=== PATIENT | female | born 1930 | race African-American/Black ===

== ENCOUNTER 2019-01-20 12:24 | Inpatient (IN) | payer MEDICARE, OTHER ==
[~2019-01-20] VITALS: Ht 165.1 cm; Wt 74.4 kg
[2019-01-20 12:40] VITALS: BP 135/63
[2019-01-20] MEDS ORDERED: Cefepime HCl 2 GM in NS 110 ML IV SCH (13:00)
[2019-01-20] MEDS ORDERED: Vancomycin 1.5 GM in NS 275 ML IVPB ONE (13:00)
[2019-01-20 14:01] LABS: BASOPHILS % (AUTO) 1.5 % (0.0-2.0); EOSINOPHILS % (AUTO) 4.3 % (0.0-3.0); HEMATOCRIT 29.3 % (37.0-47.0); HEMOGLOBIN 8.9 G/DL (12.0-16.0); LYMPHOCYTES % (AUTO) 19.3 % (20.0-45.0); MEAN CORPUSCULAR VOLUME 96 FL (80-99); MONOCYTES % (AUTO) 5.1 % (1.0-10.0); NEUTROPHILS % (AUTO) 69.8 % (45.0-75.0); PLATELET COUNT 443 K/UL (150-450); RED BLOOD COUNT 3.06 M/UL (4.20-5.40); WHITE BLOOD COUNT 9.9 K/UL (4.8-10.8)
[2019-01-20 14:12] LABS: INR 1.1 (0.9-1.1)
--- NOTE | 2019-01-20 14:39 | Diagnostic Imaging Report ---
Indication: Left leg edema and pain Technique: Grayscale and duplex images of the left lower extremity veins Comparison: none Findings: Within the common femoral vein and femoral vein, there is some wall adherent thrombus resulting in incomplete compressibility. Collateral veins are seen surrounding the mid to distal femoral vein. There is fairly extensive edema of the subcutaneous fat. Popliteal and calf veins are patent, without evidence of acute thrombus. Doppler waveforms demonstrate slightly dampened phasicity, normal augmentation response Impression: Incompletely occlusive and most likely chronic thrombus within the left common femoral and femoral veins. Subcutaneous fat edema incidentally noted
--- NOTE | 2019-01-20 15:46 | Diagnostic Imaging Report ---
Indication: Chest pain Technique: One view of the chest Comparison: 04/23/2010 Findings: Body habitus limits evaluation. The heart is enlarged. There is questionably some airspace opacity in the right infrahilar region. There is equivocal mild interstitial prominent. There is mild central bronchial wall thickening. The pleural spaces are grossly clear. There are degenerative changes of both shoulders Impression: Equivocal mild interstitial prominence, could be on the basis of senescent change or could indicate mild interstitial congestion Equivocal right infrahilar airspace opacities. Cardiomegaly
[2019-01-20] MEDS ORDERED: Vancomycin 1.5gm vial IVPB ONE (15:50)
[2019-01-20 16:00] VITALS: BP 136/70
[2019-01-20 16:03] LABS: ANION GAP 3 mmol/L (5-15); BLOOD UREA NITROGEN 14 mg/dL (7-18); CALCIUM 8.3 MG/DL (8.5-10.1); CARBON DIOXIDE 27 MMOL/L (21-32); CHLORIDE 109 MMOL/L (98-107); CREATININE 0.9 MG/DL (0.55-1.30); POTASSIUM 4.6 MMOL/L (3.5-5.1); SODIUM 139 MMOL/L (136-145)
[2019-01-20 16:15] LABS: ALANINE AMINOTRANSFERASE 7 U/L (12-78); ALBUMIN 1.8 G/DL (3.4-5.0); ALBUMIN/GLOBULIN RATIO 0.4 (1.0-2.7); ALKALINE PHOSPHATASE 80 U/L (46-116); ASPARTATE AMINO TRANSFERASE 22 U/L (15-37); BILIRUBIN,TOTAL 0.5 MG/DL (0.2-1.0); CREATINE KINASE 141 U/L (26-308)
[2019-01-20 17:46] LABS: APPEARANCE,URINE SLIGHTLY CLOUDY; BILIRUBIN, URINE NEGATIVE (NEGATIVE); COLOR,URINE AMBER; GLUCOSE, URINE (UA) NEGATIVE (NEGATIVE); KETONES,URINE NEGATIVE (NEGATIVE); LEUKOCYTE ESTERASE ,URINE 3+ (NEGATIVE); NITRITE,URINE NEGATIVE (NEGATIVE); PH,URINE 5 (4.5-8.0); PROTEIN,URINE 1+ (NEGATIVE); UROBILINOGEN,URINE 1 MG/DL (0.0-1.0)
--- NOTE | 2019-01-20 19:16 | Emergency Room Report ---
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 Patient is not a good historian and does not recall how long the ulcer has been there however looks infected possible osteomyelitis. Patient denies any chest pain, shortness of breath, palpitation , headache and dizziness at this time. Vital signs are within normal limits. No motor or sensory deficits noted. No unilateral or generalized weakness noted. Patient is blind in right eye.Patient rating her pain at 2 out of 10 at this time without radiation denying tingling numbness (Desmond Arriaza) Allergies: Coded Allergies: PENICILLINS (Verified Allergy, Mild, 04/21/10) Uncoded Allergies: SEAFOOD (Allergy, Mild, 04/21/10) Patient History Past Medical History: see triage record Past Surgical History: unable to obtain Pertinent Family History: none Now: No Immunizations: UTD Reviewed Nursing Documentation: PMH: Agreed; PSxH: Agreed (Desmond Arriaza) Nursing Documentation-PMH Past Medical History: No History, Except For Hx Hypertension: Yes Hx Cerebrovascular Accident: Yes - left sided weakness (Desmond Arriaza) Review of Systems All Other Systems: negative except mentioned in HPI (Desmond Arriaza) Physical Exam Vital Signs Date Time Temp Pulse Resp B/P (MAP) Pulse Ox O2 Delivery O2 Flow Rate FiO2 01/20/19 12:21 98.8 88 17 134/64 (87) 98 Sp02 EP Interpretation: reviewed, normal General Appearance: alert, GCS 15, non-toxic, mild distress Head: normocephalic, atraumatic Eyes: bilateral eye normal inspection, bilateral eye PERRL ENT: hearing grossly normal, normal pharynx, no angioedema, normal voice Neck: full range of motion, supple, supple/symm/no masses Respiratory: chest non-tender, lungs clear, normal breath sounds, speaking full sentences Cardiovascular #1: regular rate, rhythm, no edema, no murmur Cardiovascular #2: 2+ carotid (R), 2+ carotid (L), 2+ radial (R), 2+ dorsalis pedis (R), 2+ dorsalis pedis (L) Gastrointestinal: normal inspection, normal bowel sounds, non tender, soft, no mass Genitourinary: no CVA tenderness Musculoskeletal: no calf tenderness, pelvis stable, swelling - Left foot with ulceration Neurologic: alert, oriented x3, responsive, motor strength/tone normal, sensory intact, speech normal Psychiatric: judgement/insight normal, memory normal, mood/affect normal, no suicidal/homicidal ideation Skin: other - Left foot ulcer Lymphatic: no adenopathy (Desmond Arriaza) Medical Decision Making PA Attestation Diagnosis and treatment plans were reviewed and discussed with my supervising physician Dr. Guevara (Desmond Arriaza) Medicare Attestation I saw and evaluated the patient and discussed the care with Desmond MAYA on 01/20/2019. I agree with the findings and plan as documented in the note. 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 Patient is not a good historian and does not recall how long the ulcer has been there however looks infected possible osteomyelitis. Patient denies any chest pain, shortness of breath, palpitation , headache and dizziness at this time. Vital signs are within normal limits. No motor or sensory deficits noted. No unilateral or generalized weakness noted. Patient is blind in right eye. Patient rating her pain at 2 out of 10 at this time without radiation denying tingling numbness Ddx considered but are not limited to : Osteomyelitis ,cellulitis, DVT, superficial infection, abscess Vital signs: are WNL, pt. is afebrile H&PE are most consistent with: Foot ulcer with possible osteomyelitis, pneumonia ORDERS: Sepsis work-up, venous duplex of left lower extremity, x-ray left foot ED INTERVENTIONS: Cefepime, NS bolus, vancomycin Patient was admitted with diagnosis of possible ostium mellitus of left foot, pneumonia to Dr. Archibald under supervision of : Melvin pt stable at time of admission (Desmond Arriaza) EKG Diagnostic Results Rate: normal Rhythm: NSR ST Segments: no acute changes Other Impression No acute ST changes (Desmond Arriaza) Chest X-Ray Diagnostic Results Chest X-Ray Diagnostic Results : Chest X-Ray Ordered: Yes # of Views/Limited/Complete: 1 View Indication: Other EP Interpretation: Yes PA Xray: Interpretation reviewed, by supervising MD, and agrees with findings. Interpretation: other - infiltrates RLL Impression: Other - PNA Electronically Signed by: Desmond Pittman PA-C) Other X-Ray Diagnostic Results Other X-Ray Diagnostic Results : X-Ray ordered: Left foot # of Views/Limited Vs Complete: 3 View Indication: Pain EP Interpretation: Yes PA Xray: Interpretation reviewed, by supervising MD, and agrees with findings. Interpretation: no dislocation, no fractures, other - Possible osteomyelitis to the foot ulceration Impression: Other - Possible osteomyelitis due to foot ulceration Electronically Signed by: Desmond Loza PA-C (Desmond Arriaza) CT/MRI/US Diagnostic Results CT/MRI/US Diagnostic Results : Imaging Test Ordered: Venous duplex of left lower extremity Impression Chronic DVT (Desmond Arriaza) Last Vital Signs Date Time Temp Pulse Resp B/P (MAP) Pulse Ox O2 Delivery O2 Flow Rate FiO2 01/20/19 12:40 98.9 17 135/63 98 01/20/19 12:21 88 (Desmond Arriaza) Disposition: ADMITTED INPATIENT Condition: Stable Scripts Unable to Obtain Active Prescriptions or Reported Meds Referrals: NOT CHOSEN IPA/,REFERRING (PCP) Desmond Arriaza Jan 20, 2019 19:16 Sandip Guevara MD Jan 20, 2019 21:07
[2019-01-20 19:20] VITALS: BP 131/69
[2019-01-20 21:45] VITALS: BP 148/66
[2019-01-21 00:30] VITALS: BP 125/58
[2019-01-21] MEDS: Albuterol/Ipratropium 3ml neb HHN SCH ×4 (01:51→20:03)
[2019-01-21 04:44] VITALS: BP 148/75
[2019-01-21] MEDS: Heparin 5000 units/ml inj SUBQ SCH ×3 (05:39→21:01)
[2019-01-21 06:27] LABS: BASOPHILS % (AUTO) 1.1 % (0.0-2.0); EOSINOPHILS % (AUTO) 5.4 % (0.0-3.0); HEMATOCRIT 25.7 % (37.0-47.0); LYMPHOCYTES % (AUTO) 18.6 % (20.0-45.0); MEAN CORPUSCULAR VOLUME 96 FL (80-99); NEUTROPHILS % (AUTO) 69.9 % (45.0-75.0); PLATELET COUNT 401 K/UL (150-450); RED BLOOD COUNT 2.66 M/UL (4.20-5.40); RED CELL DISTRIBUTION WIDTH 17.2 % (11.6-14.8); WHITE BLOOD COUNT 9.7 K/UL (4.8-10.8)
[2019-01-21 07:00] LABS: ALANINE AMINOTRANSFERASE 8 U/L (12-78); ALBUMIN 1.8 G/DL (3.4-5.0); ALBUMIN/GLOBULIN RATIO 0.4 (1.0-2.7); ALKALINE PHOSPHATASE 79 U/L (46-116); ANION GAP 4 mmol/L (5-15); ASPARTATE AMINO TRANSFERASE 22 U/L (15-37); BILIRUBIN,TOTAL 0.5 MG/DL (0.2-1.0); BLOOD UREA NITROGEN 12 mg/dL (7-18); CALCIUM 7.8 MG/DL (8.5-10.1); CARBON DIOXIDE 28 MMOL/L (21-32); CHLORIDE 110 MMOL/L (98-107); CHOLESTEROL 129 MG/DL (< 200); CREATININE 0.8 MG/DL (0.55-1.30); HDL CHOLESTEROL 31 MG/DL (40-60); SODIUM 142 MMOL/L (136-145); TRIGLYCERIDES 68 MG/DL (30-150)
[2019-01-21 07:24] LABS: % IRON SATURATION 15 % (15-50); IRON 25 ug/dL (50-175); TOTAL IRON BINDING CAPACITY 163 ug/dL (250-450)
[2019-01-21 08:00] VITALS: BP 131/52
[2019-01-21] MEDS: Aspirin Baby 81mg ORAL SCH (09:23)
[2019-01-21] MEDS: Lisinopril 20mg tab ORAL SCH (09:23)
--- NOTE | 2019-01-21 09:45 | History and Physical Report ---
DATE OF ADMISSION: 01/20/2019 CHIEF COMPLAINT: Multiple wounds and pain. HISTORY OF PRESENT ILLNESS: The patient is an 88-year-old female. She is a poor historian. According to the patient, she presented with complaints of stroke. She states her stroke happened years ago. She also notes worsening pain in the left foot. She has multiple pressure ulcers. She is unclear exactly how long she has had wounds. She denies any fevers or chills. On evaluation in the emergency room, she had a more significant wound on the left heel that was possibly infected as well as bilateral pressure ulcers on the buttocks. She currently lives at home. She states she has a caregiver. Attempts at reaching family in contact list in the chart were unsuccessful. PAST SURGICAL HISTORY: None. FAMILY HISTORY: None. SOCIAL HISTORY: Negative for tobacco, ethanol, or drugs. REVIEW OF SYSTEMS: GENERAL: No fevers or chills. HEENT: No headaches or visual changes. CARDIOPULMONARY: No chest pain or shortness of breath. GASTROINTESTINAL: No nausea or vomiting. GENITOURINARY: No urgency or frequency. MUSCULOSKELETAL: Positive foot pain. NEUROLOGIC: No evidence of seizures. PHYSICAL EXAMINATION: VITAL SIGNS: Temperature 98 degrees, pulse 76, respirations 19, and blood pressure 148/75. GENERAL: The patient is well developed, in no apparent distress. HEART: Regular rate and rhythm. LUNGS: Clear. ABDOMEN: Soft, nontender, and nondistended. EXTREMITIES: Without clubbing or cyanosis. The patient has a large wound on the left heel with some necrotic tissue. There is a blood blister to the lateral aspect of the foot. There is a small wound on the bottom of the right heel and bilateral stage III sacral wounds on the buttocks. LABORATORY DATA: UA showed 60 to 80 wbc's. White count 10, hemoglobin 9, hematocrit 29, and platelets of 443,000. Sodium 139, potassium 4.6, chloride 109, bicarb 27, BUN 14, and creatinine 0.9. ASSESSMENT: This is a pleasant 88-year-old female with a history of hypertension and prior stroke, admitted with multiple pressure wounds. She has urinary tract infection and possible osteomyelitis of the left heel. PLAN: IV antibiotics. Follow up cultures. Wound care evaluation. ID consultation. MRI of the left foot to rule out osteomyelitis. Check vascular studies. DVT and stress ulcer prophylaxes. The patient will definitely need to be placed in the half-way for wound care. Eloy Hughes M.D. DR: TEMITOPE JOB#: [id number] CC:
--- NOTE | 2019-01-21 10:00 | Consultation ---
DATE OF CONSULTATION: CARDIOLOGY CONSULTATION CONSULTING PHYSICIAN: James Archibald M.D. REASON FOR CONSULTATION: Congestive heart failure, peripheral artery disease, and venous thrombosis. HISTORY OF PRESENT ILLNESS: This is a very poor historian. She is 88 years old. She apparently lives in home and has a caregiver assisting. She has had increasing pain and immobility due to an ulcer of her left foot. She called her doctor today although she cannot recall her doctor's name and he instructed her to come to the hospital. She was brought by ambulance. She is unable to give much more medical information. PAST MEDICAL HISTORY: Includes CVA with left-sided weakness, hypertension, DVT, and blindness in the right eye. MEDICATIONS: According to the run sheet, her home medications include labetalol, Plavix, and aspirin. ALLERGIES: Include penicillin and seafood. SOCIAL HISTORY: She denies smoking, alcohol, or substance abuse. REVIEW OF SYSTEMS: Cannot be reliably obtained from the patient. PHYSICAL EXAMINATION: GENERAL: Thin and frail. Poorly kept. VITAL SIGNS: Blood pressure 134/64, heart rate 88, and respiratory rate 17. HEENT: Temporal wasting. Blind on the right. Arcus senilis. Oropharynx clear. Mucous membranes moist. NECK: Supple. Jugular venous pressure is slightly elevated. LUNGS: Diminished breath sounds. No wheezing or rales. CARDIAC: Regular rhythm and rate. Normal S1 and S2. 1/6 systolic murmur at apex. ABDOMEN: Soft and nontender. EXTREMITIES: With poor pulses. No edema. Left foot ulcer. There is some skin breakdown between the digits as well. Chest x-ray reveals right lower lobe infiltrate. X-ray of the foot is suggestive of osteomyelitis on the left. Venous duplex reveals chronic DVT on the left. EKG reveals sinus rhythm with nonspecific ST-T wave change. Laboratories notable for sodium 139, potassium 4.6, bicarbonate 27, BUN 14, creatinine 0.1, and glucose 124. Lactic acid normal. Troponin normal. Pro-natriuretic peptide 1857. Albumin 1.8. White count 9.9, hemoglobin 8.9, and MCV 96. IMPRESSION: 1. Probable left lower extremity osteomyelitis. 2. Peripheral artery disease with arterial insufficiency. 3. Chronic lower extremity DVT. 4. Cerebrovascular accident with left hemiparesis. 5. Hypertensive heart disease. 6. Acute on chronic right-sided congestive heart failure with possible systolic component as well. 7. Anemia with macrocytosis. 8. Severe protein-calorie malnutrition. 9. Community-acquired pneumonia, possible aspiration component. PLAN: 1. Antimicrobials. 2. Respiratory hygiene. 3. Panculture. 4. MRI of the foot. 5. Arterial duplex of the foot. 6. DVT prophylaxis, dosing of heparin. 7. Titrate antihypertensives. 8. Check hemoglobin A1c. 9. Check lipid panel. 10. Continue antiplatelet therapy. 11. Skin care. 12. Surgical evaluation of foot. 13. Protein supplement. 14. Presently, no indication for diuresis; however, we will reassess. 15. Anti-failure therapy has been advanced with an angiotensin-converting enzyme inhibitor for now. She will likely require resumption of her beta-juan f as well. Agnieszka Alfaro JOB#: [id number] CC:
[2019-01-21 12:00] VITALS: BP 115/62
--- NOTE | 2019-01-21 13:12 | Diagnostic Imaging Report ---
APPROVED REPORT CPT Code: 50439 Symptoms Non-healing Ulcer : Bilaterally RIGHT LEG: Common femoral artery waveform analysis is within normal limits at rest. Color flow duplex sonography reveals calcification throughout the superficial femoral artery. A mild (40-50%) stenosis is seen in the superficial femoral artery. There is no evidence of occlusion within this segment. The popliteal artery is patent. The tibioperoneal trunk was not well visualized. The distal posterior and dorsalis pedis arteries are also calcified. The Doppler tibial artery waveform analysis is compatible with moderate ischemia at rest. Doppler tibial artery waveform analysis is compatible with moderate ischemia at rest. LEFT LEG: Common femoral artery waveform analysis is within normal limits at rest. Color flow duplex sonography reveals calcification throughout the superficial femoral artery. A mild (40-50%) stenosis is seen in the superficial femoral artery. There is no evidence of occlusion within this segment. The popliteal artery is patent. The tibioperoneal trunk was not well visualized. The distal posterior and dorsalis pedis arteries are also calcified. The Doppler tibial artery waveform analysis is compatible with moderate ischemia at rest. Doppler tibial artery waveform analysis is compatible with moderate to severe ischemia at rest.
[2019-01-21] MEDS: Cefepime HCl 1 GM in D5W 55 ML IVPB SCH (15:09)
--- NOTE | 2019-01-21 15:36 | Diagnostic Imaging Report ---
Indication: Posterior heel ulceration. Cellulitis of the foot. Concern for osteomyelitis. Technique: Left ankle/hindfoot imaging utilizing multiplanar T1 fast spin-echo, proton and T2 fast spin-echo with fat saturation, and STIR. Comparison: None Findings: Bone marrow signal is normal and preserved throughout the calcaneus. There is some absence of subcutaneous fat posterior to the calcaneus consistent with a given history of chronic ulceration in this location. There is also generalized subcutaneous edema involving the ankle specially on the lateral side. There is no evidence of an abnormal fluid collection. There are multiple periventricular cystic foci mainly in the subchondral bone within several intertarsal joints. There is a trace amount of fluid in the retrocalcaneal bursa. The Achilles tendon and plantar aponeurosis appear unremarkable. IMPRESSION: Ulceration demonstrated in the posterior part of the foot. No evidence of acute osteomyelitis or abscess.
--- NOTE | 2019-01-21 15:41 | Diagnostic Imaging Report ---
Indication: Cellulitis of the foot involving the distal phalanges. No obvious ulcer in the forefoot. Open heel wound. Technique: Left foot imaging utilizing multiplanar T1 fast spin-echo, proton and T2 fast spin-echo with fat saturation, and STIR. Comparison: None Findings: Please refer to the separately dictated report MRI left hindfoot/ankle. Bone marrow signal is essentially normal and the phalanges of the left foot without compelling evidence for acute osteomyelitis. There are extensive periarticular cystic lesions are demonstrated especially with regard to the first toe at the interphalangeal joint. On plain x-ray these are seen is prominent periarticular erosions. The nature of this is not known but may be related to inflammatory arthritis. Please correlate clinically. Gout is one consideration. In addition there are periarticular cystic changes within several intertarsal joints. Again these could be degenerative in nature or reflective of an inflammatory arthritis. Please correlate clinically. There is mild generalized subcutaneous edema mainly within the midfoot hindfoot and ankle region. IMPRESSION: No evidence of acute osteomyelitis. Multiple cystic periarticular signal abnormalities, at least one of which is visible by plain x-ray involving the first interphalangeal joint. Consider gout or other inflammatory arthropathies. Differential includes subchondral geodes.
[2019-01-21 16:00] VITALS: BP 110/69
[2019-01-21] MEDS: Vancomycin 1 GM in NS 275 ML IVPB SCH (16:57)
[2019-01-21] MEDS: Docusate 100mg cap ORAL SCH (17:15)
--- NOTE | 2019-01-21 18:03 | Consultation ---
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 Patient is not a good historian and does not recall how long the ulcer has been there however looks infected possible osteomyelitis. Patient denies any chest pain, shortness of breath, palpitation , headache and dizziness at this time. Vital signs are within normal limits. No motor or sensory deficits noted. No unilateral or generalized weakness noted. Patient is blind in right eye.Patient rating her pain at 2 out of 10 at this time without radiation denying tingling numbness. Surgery called to evaluate and assist with care and management. patient seen, chart reviewed, patient examined Allergies: Coded Allergies: PENICILLINS (Verified Allergy, Mild, 04/21/10) Uncoded Allergies: SEAFOOD (Allergy, Mild, 04/21/10) Medication History Unable to Obtain Active Prescriptions or Reported Meds Patient History Limited by: medical condition History Provided By: Patient, Medical Record, PMD Healthcare decision maker Resuscitation status Advanced Directive on File Past Medical/Surgical History Past Medical/Surgical History: (1) Cellulitis (2) Pedal edema (3) Chronic deep vein thrombosis (DVT) (4) Foot ulcer (5) Pneumonia Review of Systems Review of Symptoms General ROS: no weight loss or fever Psychological ROS: no depression or mood changes, no memory loss Ophthalmic ROS: no visual changes or eye irritation ENT ROS: no nasal congestion, hearing loss, dizziness Allergy and Immunology ROS: no allergic symptoms or urticaria Hematological and Lymphatic ROS: no swollen glands, unusual bleeding or bruising Endocrine ROS: no polyuria, polydipsia, weight changes, temperature intolerance Respiratory ROS: no cough, shortness of breath, or wheezing Cardiovascular ROS: no chest pain or dyspnea on exertion Gastrointestinal ROS: denies abdominal pain, bright red blood in stool. Musculoskeletal ROS: no myalgias or arthralgias Neurological ROS: no TIA or stroke symptoms Dermatological ROS: no new or changing skin lesions, rashes or pruritis Physical Exam Physical Exam General appearance: alert, cooperative, no distress, appears stated age Head: Normocephalic, without obvious abnormality, atraumatic Eyes: conjunctivae/corneas clear. PERRL, EOM's intact. Fundi benign Throat: Lips, mucosa, and tongue normal. Teeth and gums normal Neck: supple, symmetrical, trachea midline, no adenopathy, thyroid: not enlarged, symmetric, no tenderness/mass/nodules, no carotid bruit and no JVD Lungs: clear to auscultation bilaterally Heart: regular rate and rhythm, S1, S2 normal, no murmur, click, rub or gallop Abdomen: soft, non-tender. Bowel sounds normal. No masses, no organomegaly Extremities: extremities normal, atraumatic, no cyanosis or edema Pulses: 2+ and symmetric Skin: Skin color, texture, turgor normal. No rashes or lesions Neurologic: Grossly normal Last 24 Hour Vital Signs Date Time Temp Pulse Resp B/P (MAP) Pulse Ox O2 Delivery O2 Flow Rate FiO2 01/21/19 16:00 98.6 79 18 110/69 (83) 97 01/21/19 12:00 98.2 96 18 115/62 (79) 95 01/21/19 09:23 131/52 01/21/19 09:00 Room Air 01/21/19 08:35 65 20 98 Room Air 21 63 20 97 01/21/19 08:00 97.7 92 19 131/52 (78) 100 01/21/19 04:44 97.6 82 19 148/75 (99) 98 01/21/19 01:52 78 18 95 Room Air 21 76 18 93 01/21/19 01:51 76 18 93 Room Air 21 01/21/19 00:30 96.6 81 18 125/58 (80) 96 01/20/19 23:00 Room Air 01/20/19 21:45 97.7 83 18 148/66 (93) 100 01/20/19 21:00 98.5 80 19 131/69 100 Room Air 01/20/19 19:20 98.5 80 19 131/69 100 Room Air Intake and Output 01/20/19 01/21/19 19:00 07:00 Intake Total 1385 ml Output Total 900 ml Balance 1385 ml -900 ml Intake IV Total 1385 ml Output Urine Total 900 ml Laboratory Tests Test 01/21/19 05:20 01/21/19 14:20 White Blood Count 9.7 K/UL (4.8-10.8) Red Blood Count 2.66 M/UL (4.20-5.40) L Hemoglobin 8.0 G/DL (12.0-16.0) L Hematocrit 25.7 % (37.0-47.0) L Mean Corpuscular Volume 96 FL (80-99) Mean Corpuscular Hemoglobin 29.9 PG (27.0-31.0) Mean Corpuscular Hemoglobin Concent 31.1 G/DL (32.0-36.0) L Red Cell Distribution Width 17.2 % (11.6-14.8) H Platelet Count 401 K/UL (150-450) Mean Platelet Volume 4.2 FL (6.5-10.1) L Neutrophils (%) (Auto) 69.9 % (45.0-75.0) Lymphocytes (%) (Auto) 18.6 % (20.0-45.0) L Monocytes (%) (Auto) 5.0 % (1.0-10.0) Eosinophils (%) (Auto) 5.4 % (0.0-3.0) H Basophils (%) (Auto) 1.1 % (0.0-2.0) Sodium Level 142 MMOL/L (136-145) Potassium Level 5.0 MMOL/L (3.5-5.1) Chloride Level 110 MMOL/L (98-107) H Carbon Dioxide Level 28 MMOL/L (21-32) Anion Gap 4 mmol/L (5-15) L Blood Urea Nitrogen 12 mg/dL (7-18) Creatinine 0.8 MG/DL (0.55-1.30) Estimat Glomerular Filtration Rate mL/min (>60) Glucose Level 100 MG/DL (74-106) Hemoglobin A1c 4.5 % (4.3-6.0) Calcium Level 7.8 MG/DL (8.5-10.1) L Iron Level 25 ug/dL (50-175) L Total Iron Binding Capacity 163 ug/dL (250-450) L Percent Iron Saturation 15 % (15-50) Unsaturated Iron Binding 138 ug/dL (112-346) Total Bilirubin 0.5 MG/DL (0.2-1.0) Aspartate Amino Transf (AST/SGOT) 22 U/L (15-37) Alanine Aminotransferase (ALT/SGPT) 8 U/L (12-78) L Alkaline Phosphatase 79 U/L (46-116) Pro-B-Type Natriuretic Peptide 2114 pg/mL (0-125) H Total Protein 6.5 G/DL (6.4-8.2) Albumin 1.8 G/DL (3.4-5.0) L Globulin 4.7 g/dL Albumin/Globulin Ratio 0.4 (1.0-2.7) L Triglycerides Level 68 MG/DL (30-150) Cholesterol Level 129 MG/DL (< 200) LDL Cholesterol 80 mg/dL (<100) HDL Cholesterol 31 MG/DL (40-60) L Cholesterol/HDL Ratio 4.2 (3.3-4.4) Vitamin B12 Level 441 PG/ML (193-986) Folate 2.1 NG/ML (8.6-58.9) L Thyroid Stimulating Hormone (TSH) 1.194 uiU/mL (0.358-3.740) Ionized Calcium (Measured) 0.96 mmol/L (1.10-1.35) L Height (Feet): 5 Height (Inches): 5.00 Weight (Pounds): 164 Medications Current Medications Medications (Trade) Dose Ordered Sig/Marge Route PRN Reason Start Time Stop Time Status Last Admin Dose Admin Acetaminophen (Tylenol) 650 mg Q6H PRN ORAL Mild Pain/Temp > 100.5 01/21/19 13:00 02/20/19 12:59 Albuterol/ Ipratropium (Albuterol/ Ipratropium) 3 ml Q6HRT HHN 01/21/19 01:00 01/26/19 00:59 01/21/19 08:38 Aspirin (ASA) 81 mg DAILY ORAL 01/21/19 09:00 02/20/19 08:59 01/21/19 09:23 Cefepime HCl 1 gm/ Dextrose 55 ml @ 110 mls/hr Q24H IVPB 01/21/19 14:00 01/28/19 13:59 01/21/19 15:09 Clopidogrel Bisulfate (Plavix) 75 mg DAILY ORAL 01/21/19 09:00 02/20/19 08:59 01/21/19 09:23 Docusate Sodium (Colace) 100 mg TWICE A DAY ORAL 01/21/19 18:00 02/20/19 17:59 01/21/19 17:15 Heparin Sodium (Porcine) (Heparin 5000 units/ml) 5,000 units EVERY 8 HOURS SUBQ 01/21/19 06:00 02/20/19 05:59 01/21/19 15:13 Lisinopril (Prinivil) 20 mg DAILY ORAL 01/21/19 09:00 02/20/19 08:59 01/21/19 09:23 Vancomycin HCl (Vanco rx to dose) 1 ea DAILY PRN MISC Per rx protocol 01/20/19 22:00 02/19/19 21:59 Vancomycin HCl 1 gm/Sodium Chloride 275 ml @ 183.333 mls/hr 1600 IVPB 01/21/19 16:00 01/26/19 15:59 01/21/19 16:57 Assessment/Plan Problem List: (1) Foot ulcer Assessment & Plan: Pt presented on admission grossly unkempt with multiple pressure injuries. Moisture intertrigo noted to abdominal folds,R and L groin. Skin folds erythematous ,grossly denuded and malodorous. Dry scab noted to L knee which pt stated was from fall in her home. Full thickness stage 3 pressure injury upper/outer R buttocks. Base of wound 75 % necrotic,25% viable with surrounding dark borders. Small amt seropurulent exudate. No odor noted.(L)10.5cm x (W)5.8cm. Open DTPI upper/inner aspect R buttocks. Base of wound black and fluctuant,10% viable.(L)1.5cm x (W)2.7cm. Full thickness stage 3 pressure injury sacrococcygeal area Base of wound is maroon, with multiple small open wounds with slough that are within base of wound.Small amt sanguineous exudate noted. Pt complained of pain when minimally palpated.(L)4.5cm x (W)2.7cm.Periwound macerated with non-blanching erythema. Full thickness stage 3 pressure injury with undermining L ischium. Scattered slough at base of wound. Mild odor noted. Small amt purulent exudate noted. Borders are erythematous and macerated.Mild odor noted.(L)7cm x (W)10.5cmx (D) 1.1cm,undermining clockwise 1-6 by 3.2cm @3o'clock. Full thickness stage 3 pressure injury noted to upper lateral/posterior R thigh. Base of wound is 90% necrotic with surrounding slough. erythematous borders. (L)1cm x (W)2.7cm. Full thickness stage 3 ulcer plantar R foot. Base of wound 25% necrotic,75% fibrinous slough. borers are macerated . Small amt. l[place]o coloured exudate noted. Wound is malodorous.(L)1.5cm x (W)3.5cm. Large blood filled blister noted to lateral/plantar L foot (L)7.5cm x (W)8.3cm. Full thickness stage 3 ulcer noted to L 1st metatarsal head (L)0.8cm x (W) 0.5cm. Small amt sanguineous exudate noted. Moist peeling skin periwound. Small ulcers noted to L 4th and 5th metatarsals. Each wound noted to have small amt sanguineous exudate. Full thickness stage 3 ulcer noted L heel. Base of wound 40% necrotic, with scattered slough. Borders macerated and erythematous. Small amt. malodorous londono coloured exudate.(L)6.5cm x (W)8.8cm. R heel boggy with non-blanching erythema. Tx.Plan: Cleanse wounds Buttocks with Saline. Apply Therahoney to each wound. Apply Moisture Barrier Paste periwound. Cover each wound with Optifoam drsgs.Change every 3 days and prn. Cleanse wound L ischium with Saline. Loosely pack with Therahoney impregnated Kerlix Gauze. Apply Moisture Barrier Paste periwound. Cover with Optifoam drsg. Change every 3 days and prn. Cleanse wound posterior upper L thigh with Saline. Apply TheraHoney. Apply Cavilon Skin Barrier periwound. Cover with Optifoam drsg every 3 days and prn. Cleanse wounds L heel with Saline. Apply Therahoney. Apply Cavilon Skin Barrier periwound.Cover with Abd Pad. Wrap with Kerlix every 3days and prn. Cleanse wounds L st,4th and 5th metatarsals with Saline weave dry gauze between toes Daily and prn. Apply Cavilon Skin Barrier to DTPI L foot. Cover with Abd Pad. Wrap with Kerlix every 3 days and prn. Apply Cavilon Skin Barrier to R heel. Cover with Optifoam drsg. Change every 7 days and prn. Apply Antifungal Powder to Clean,Dry Skin in abdominal folds, R and L groin with ABD pads in skin folds Twice Daily. Air Fluidized Mattress. Reposition at least every 2hours or as tolerated. Place pillow between knees. Off-load heels with Pillow. ICD Codes: L97.509 - Non-pressure chronic ulcer of other part of unspecified foot with unspecified severity SNOMED: 20186859 (2) Cellulitis Assessment & Plan: Abx as per ID wounds will need care while in hospital with good care on d/c as not well kept multiple and in different areas needs aggressive care nutritional support will follow with recs thank you ICD Codes: L03.90 - Cellulitis, unspecified SNOMED: 054894282 Lakhwinder Dai Jan 21, 2019 18:02
--- NOTE | 2019-01-21 18:30 | Consultation ---
DATE OF CONSULTATION: 01/21/2019 INFECTIOUS DISEASE CONSULTATION This consult is for coverage of Dr. Murphy. CONSULTING PHYSICIAN: Shady Reyes M.D. PRIMARY ATTENDING: Eloy Hughes M.D. REASON FOR CONSULT: Pneumonia, UTI, cellulitis of foot. HISTORY OF PRESENT ILLNESS: This is an 88-year-old female admitted yesterday from home complaining of pain in the left foot area. The patient is a poor historian and currently does not have any complaints. She has multiple pressure ulcers. PAST MEDICAL HISTORY: Significant for CVA and left-sided weakness, right eye blindness, DVT of left leg, anemia. ALLERGIES: Allergic to penicillin, seafood. MEDICATIONS: Colace, vancomycin, cefepime, Tylenol, aspirin, lisinopril, Plavix, heparin, albuterol/ipratropium inhaler. SOCIAL HISTORY: Lives at home. No history of alcohol, drug abuse, or smoking. REVIEW OF SYSTEMS: Has no complaints at the time of exam. PHYSICAL EXAMINATION: VITAL SIGNS: Temperature 97.7, pulse 65, blood pressure 131/52. GENERAL APPEARANCE: No acute distress. HEAD AND NECK: Corneal opacity in the right eye. Has no teeth. HEART: Normal rate. LUNGS: Clear. ABDOMEN: Soft, nontender. EXTREMITIES: Has edema more in the left lower extremity. SKIN: Has multiple pressure ulcers in buttock area, hip area. Has also left heel ulcer. There are few other scabs on knee. LABORATORY AND DIAGNOSTIC DATA: WBC 9.7, hemoglobin 8, hematocrit 25.7, platelets is 401. Sodium 142, potassium 5, chloride 110, bicarbonate 28, BUN 12, creatinine 0.8, glucose 100. Iron is low 25. Iron saturation is also low. UA showed wbc of 60 to 80, rbc of 10 to 15, leukocyte esterase 2+, blood 3+, bacteria many. Venous duplex shows chronic thrombosis within the left common femoral vein. Chest x-ray showed questionable right infrahilar airspace opacity, cardiomegaly. Arterial duplex shows mild stenosis in superficial femoral artery. MRI is pending. Urine culture, no growth. IMPRESSION: Left foot ulceration. We will try to rule out osteomyelitis. The patient also has multiple other pressure ulcers. Has pyuria. May have UTI. Has abnormal x-ray. May have pneumonia. Has iron deficiency anemia, peripheral vascular disease, chronic DVT of left leg, status post CVA. Likely has some dementia. RECOMMENDATION: We will continue with cefepime and vancomycin. We will follow up MRI of the left foot. We will follow up the cultures. At the end of my exam, I thank Dr. Hughes for involving me in the care of this patient. Shady Reyes M.D. DR: SARA JOB#: [id number] CC:
[2019-01-21 20:00] VITALS: BP 128/61
[2019-01-21] MEDS ORDERED: LORazepam 0.5mg tab ORAL PRN (23:30)
[2019-01-22] VITALS: BP 120/59
[2019-01-22] MEDS: Albuterol/Ipratropium 3ml neb HHN SCH ×4 (00:06→19:42)
--- NOTE | 2019-01-22 03:45 | Consultation ---
DATE OF CONSULTATION: 01/20/2019 CARDIOLOGY CONSULTATION CONSULTING PHYSICIAN: James Archibald M.D. REASON FOR CONSULTATION: Congestive heart failure, peripheral artery disease, and venous thrombosis. HISTORY OF PRESENT ILLNESS: This is a very poor historian. She is 88 years old. She apparently lives at home and has a caregiver assisting. She has had increasing pain and immobility due to an ulcer of her left foot. She calls her doctor today, although she cannot recall her doctor's name and he instructed her to come to the hospital. She was brought by ambulance. She is unable to give much more medical information. MEDICATIONS: According to the run sheet, her home medications include labetalol, Plavix, aspirin. PAST MEDICAL HISTORY: Includes CVA with left-sided weakness, history of DVT, hypertension, blindness in the right eye. ALLERGIES: Include penicillin and sea food. REVIEW OF SYSTEMS: Cannot be reliably obtained from the patient. SOCIAL HISTORY: She denies smoking, alcohol, or substance abuse. PHYSICAL EXAMINATION: GENERAL: Thin and frail, poorly kempt. VITAL SIGNS: Blood pressure 134/64, pulse 88, respirations 17. HEENT: Temporal wasting. Blind in the right. Arcus senilis. Oropharynx is clear. Mucous membranes are moist. NECK: Supple. Jugular venous pressure slightly elevated. LUNGS: Diminished breath sounds. No wheezing or rales. CARDIAC: Regular rhythm and rate. Normal S1, S2. A 1/6 systolic murmur at apex. ABDOMEN: Soft, nontender. EXTREMITIES: With poor pulses. No edema. Left foot ulcer. There is some skin breakdown in between the digits as well. LABORATORY AND DIAGNOSTIC DATA: Chest x-ray reveals right lower lobe infiltrate. X-ray of the foot is suggestive of osteomyelitis on the left. Venous duplex reveals chronic DVT on the left. EKG reveals sinus rhythm with nonspecific ST-T wave change. Labs notable for sodium of 139, potassium 4.6, bicarb 27, BUN 14, creatinine 0.1, and glucose 124. Lactic acid normal. Troponin normal. Pro-natriuretic peptide 1857. Albumin is 1.8. White count 9.9, hemoglobin 8.9, MCV 96. IMPRESSION: 1. Probable left lower extremity osteomyelitis. 2. Peripheral artery disease with arterial insufficiency. 3. Chronic lower extremity DVT. 4. Cerebrovascular accident with left hemiparesis. 5. Hypertensive heart disease. 6. Acute on chronic diastolic congestive heart failure with possible systolic component as well. 7. Anemia with macrocytosis. 8. Severe protein-calorie malnutrition. 9. Community-acquired pneumonia, possible aspiration component. PLAN: 1. Antimicrobials. 2. Respiratory hygiene. 3. Panculture. 4. MRI of the foot. 5. Arterial duplex of the foot. 6. DVT prophylaxis dosing of heparin. 7. Titrate antihypertensives. 8. Check hemoglobin A1c. 9. Check lipid panel. 10. Continue anti-platelet therapy. 11. Skin care. 12. Surgical evaluation of foot. 13. Protein supplements. 14. Presently, no indication for diuresis however . 15. Anti-failure therapy has been advanced with an angiotensin converting enzyme inhibitor for now. 16. She will likely require resumption of her beta-juan f as well. James Archibald M.D. DR: GARY JOB#: [id number] CC:
[2019-01-22 04:00] VITALS: BP 121/57
--- NOTE | 2019-01-22 04:45 | Consultation ---
DATE OF CONSULTATION: 01/21/2019 CONSULTING PHYSICIAN: Lela Crawford M.D. HISTORY OF PRESENT ILLNESS: This is an 88-year-old female with a history of CVA, left-sided weakness, hypertension, DVT, blindness, congestive heart failure who presented to the hospital for medical stabilization. The patient in addition has a history of CVA and ulceration on her left foot. The patient is having cognitive impairment, specifically memory and concentration. Unable to process the informations given to her nor able to understand, appreciate, or communicate rationally. The patient is a poor historian due to her cognitive impairment and is unable to make decisions. 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 PAST MEDICAL HISTORY: Cellulitis, edema, foot ulcer, pneumonia, DVT. ALLERGIES: Penicillin. SUBSTANCE ABUSE HISTORY: No known history of illicit drug use or alcohol. MENTAL STATUS EXAMINATION: The patient is it is alert, oriented times self and place. Mood is dysphoric and anxious. Affect is constricted, congruent with mood. Thought process is concrete. Thought content, no suicidal or homicidal ideation. Cognition is impaired. ASSESSMENT: [place] I Dementia. Anxiety disorder. [place] II Deferred. [place] III As above. [place] IV Low. [place] V 20. PLAN: 1. The patient lacks capacity to make decision and may not return home. Needs placement. 2. Provide the patient with reality orientation. Lela Crawford M.D. DR: KAMI JOB#: [id number] CC:
[2019-01-22] MEDS: Heparin 5000 units/ml inj SUBQ SCH ×3 (05:31→21:39)
--- NOTE | 2019-01-22 05:45 | Progress Note ---
DATE: 01/21/2019 CARDIOLOGY PROGRESS NOTE SUBJECTIVE: The patient had multiple studies done today including MRI of the left foot and ankle, both of which were negative for osteomyelitis. The patient had an echocardiogram that revealed normal ejection fraction, mild concentric hypertrophy, mild mitral regurgitation and no pulmonary hypertension. The patient had a wound care evaluation performed by the surgeon. The patient still has congestion and slight cough as well, but complains mostly of foot pain. OBJECTIVE: VITAL SIGNS: Blood pressure 128/61, pulse 76, respirations 18, and afebrile. LUNGS: Few rhonchi. HEART: Regular rhythm and rate. Normal S1, S2. A 1/6 systolic murmur at apex. ABDOMEN: Soft. EXTREMITIES: No edema. Lower extremity pulses are diminished. Wound sites are pictured. LABORATORY AND DIAGNOSTIC DATA: The arterial duplex reveals moderate ischemia bilaterally with calcified vessels and 50% stenosis of the superficial femoral artery bilaterally. Labs notable for normal TSH, normal B12, low folate of 2.1. LDL cholesterol of 80. Pro-natriuretic peptide 2100. Albumin 1.8. Iron saturation 15% with iron binding capacity low as well. Potassium 5, BUN 12, creatinine 0.8. White count 9.7, hemoglobin 8. IMPRESSION: 1. Cellulitis. 2. Wound infection of feet. 3. Peripheral artery disease with [id number] ischemia. 4. Community-acquired pneumonia. 5. Folic acid deficiency. 6. Anemia of chronic disease. 7. Mild iron deficiency. 8. Debility. 9. Hypertensive heart disease. 10. Degenerative valve disease. 11. Recent stroke with hemiparesis. PLAN: 1. Anti-platelet therapy. 2. Titrate antihypertensives. 3. Mobilization. 4. Antimicrobials. 5. Skin care. 6. Discharge planning. James Archibald M.D. DR: GARY JOB#: [id number] CC:
[2019-01-22 06:28] LABS: BASOPHILS % (AUTO) 1.2 % (0.0-2.0); EOSINOPHILS % (AUTO) 5.8 % (0.0-3.0); HEMATOCRIT 25.9 % (37.0-47.0); HEMOGLOBIN 8.2 G/DL (12.0-16.0); MEAN CORPUSCULAR VOLUME 95 FL (80-99); MONOCYTES % (AUTO) 4.7 % (1.0-10.0); NEUTROPHILS % (AUTO) 66.3 % (45.0-75.0); PLATELET COUNT 385 K/UL (150-450); RED BLOOD COUNT 2.72 M/UL (4.20-5.40); RED CELL DISTRIBUTION WIDTH 17.1 % (11.6-14.8); WHITE BLOOD COUNT 9.3 K/UL (4.8-10.8)
[2019-01-22 07:23] LABS: ALANINE AMINOTRANSFERASE 9 U/L (12-78); ALBUMIN 1.9 G/DL (3.4-5.0); ALBUMIN/GLOBULIN RATIO 0.4 (1.0-2.7); ALKALINE PHOSPHATASE 90 U/L (46-116); ANION GAP 3 mmol/L (5-15); ASPARTATE AMINO TRANSFERASE 16 U/L (15-37); BILIRUBIN,TOTAL 0.4 MG/DL (0.2-1.0); BLOOD UREA NITROGEN 13 mg/dL (7-18); CALCIUM 7.8 MG/DL (8.5-10.1); CARBON DIOXIDE 28 MMOL/L (21-32); CHLORIDE 110 MMOL/L (98-107); CREATININE 0.9 MG/DL (0.55-1.30); POTASSIUM 4.1 MMOL/L (3.5-5.1); SODIUM 141 MMOL/L (136-145)
[2019-01-22 07:24] LABS: % IRON SATURATION 18 % (15-50); IRON 29 ug/dL (50-175); TOTAL IRON BINDING CAPACITY 162 ug/dL (250-450)
--- NOTE | 2019-01-22 07:29 | General Progress Note ---
Assessment/Plan Problem List: (1) CVA (cerebral vascular accident) ICD Codes: I63.9 - Cerebral infarction, unspecified SNOMED: 245182949 (2) Anemia ICD Codes: D64.9 - Anemia, unspecified SNOMED: 299665208 (3) UTI (urinary tract infection) ICD Codes: N39.0 - Urinary tract infection, site not specified SNOMED: 47379258 (4) Foot ulcer ICD Codes: L97.509 - Non-pressure chronic ulcer of other part of unspecified foot with unspecified severity SNOMED: 42022774 (5) Pneumonia ICD Codes: J18.9 - Pneumonia, unspecified organism SNOMED: 675411165 (6) Cellulitis ICD Codes: L03.90 - Cellulitis, unspecified SNOMED: 239183301 (7) Pedal edema ICD Codes: R60.0 - Localized edema SNOMED: 366564559 (8) Chronic deep vein thrombosis (DVT) ICD Codes: I82.509 - Chronic embolism and thrombosis of unspecified deep veins of unspecified lower extremity SNOMED: 27658443657043767 Status: stable, progressing Assessment/Plan: cont wound care iv abx follow up cultures follow up pending labs antiplt rx check iron studies and stool ob Subjective ROS Limited/Unobtainable: No Constitutional: Reports: malaise, weakness HEENT: Reports: no symptoms Cardiovascular: Reports: no symptoms Respiratory: Reports: no symptoms Gastrointestinal/Abdominal: Reports: no symptoms Genitourinary: Reports: no symptoms Neurologic/Psychiatric: Reports: pre-existing deficit Endocrine: Reports: no symptoms Hematologic/Lymphatic: Reports: anemia Allergies: Coded Allergies: PENICILLINS (Verified Allergy, Mild, 04/21/10) Uncoded Allergies: SEAFOOD (Allergy, Mild, 04/21/10) All Systems: reviewed and negative except above Subjective no events. no new complaints. MRI left foot neg for osteo. cultures neg so far. am labs pending. no cp/sob Objective Last 24 Hour Vital Signs Date Time Temp Pulse Resp B/P (MAP) Pulse Ox O2 Delivery O2 Flow Rate FiO2 01/22/19 06:47 69 16 99 Room Air 21 67 15 93 01/22/19 04:00 97.3 69 16 121/57 (78) 99 01/22/19 00:08 75 16 99 Room Air 21 72 18 98 01/22/19 00:00 97.6 86 18 120/59 (79) 96 01/21/19 21:00 Room Air 01/21/19 20:06 70 18 98 Room Air 21 68 20 95 01/21/19 20:00 98.0 76 18 128/61 (83) 96 01/21/19 16:00 98.6 79 18 110/69 (83) 97 01/21/19 12:00 98.2 96 18 115/62 (79) 95 01/21/19 09:23 131/52 01/21/19 09:00 Room Air 01/21/19 08:35 65 20 98 Room Air 21 63 20 97 01/21/19 08:00 97.7 92 19 131/52 (78) 100 Intake and Output 01/21/19 01/22/19 19:00 07:00 Intake Total 600 ml Output Total 300 ml Balance 600 ml -300 ml Other 600 ml Output Urine Total 300 ml Laboratory Tests 01/21/19 14:20: Ionized Calcium (Measured) 0.96L 01/22/19 05:56: White Blood Count 9.3, Red Blood Count 2.72L, Hemoglobin 8.2L, Hematocrit 25.9L , Mean Corpuscular Volume 95, Mean Corpuscular Hemoglobin 30.0, Mean Corpuscular Hemoglobin Concent 31.5L, Red Cell Distribution Width 17.1H, Platelet Count 385, Mean Platelet Volume 4.4L, Neutrophils (%) (Auto) 66.3, Lymphocytes (%) (Auto) 22.0, Monocytes (%) (Auto) 4.7, Eosinophils (%) (Auto) 5.8H, Basophils (%) (Auto) 1.2, Sodium Level [Pending], Potassium Level [Pending ], Chloride Level [Pending], Carbon Dioxide Level [Pending], Blood Urea Nitrogen [Pending], Creatinine [Pending], Estimat Glomerular Filtration Rate [ Pending], Glucose Level [Pending], Calcium Level [Pending], Iron Level [Pending] , Unsaturated Iron Binding [Pending], Total Bilirubin [Pending], Aspartate Amino Transf (AST/SGOT) [Pending], Alanine Aminotransferase (ALT/SGPT) [Pending] , Alkaline Phosphatase [Pending], Total Protein [Pending], Albumin [Pending], Globulin [Pending] Height (Feet): 5 Height (Inches): 5.00 Weight (Pounds): 164 General Appearance: WD/WN, alert, thin Neck: supple Cardiovascular: normal rate, regular rhythm Respiratory/Chest: chest wall non-tender, lungs clear, normal breath sounds, no respiratory distress Abdomen: normal bowel sounds, non tender, soft, no organomegaly Edema: no edema noted Arm (L), no edema noted Arm (R), no edema noted Leg (L), no edema noted Leg (R), no edema noted Pedal (L), no edema noted Pedal (R), no edema noted Generalized Eloy Hughes MD Jan 22, 2019 07:29
[2019-01-22 08:00] VITALS: BP 114/51
[2019-01-22] MEDS: Docusate 100mg cap ORAL SCH ×2 (08:57→17:44)
[2019-01-22] MEDS: Aspirin Baby 81mg ORAL SCH (08:57)
[2019-01-22] MEDS: Lisinopril 20mg tab ORAL SCH (08:57)
[2019-01-22] MEDS ORDERED: Aspirin Baby 81mg ORAL SCH (09:00)
--- NOTE | 2019-01-22 09:34 | Diagnostic Imaging Report ---
Indication: Cough Technique: One view of the chest Comparison: 01/20/2019 Findings: Improved inspiration currently. Patient is rotated to the left. Lungs and pleural spaces are clear. Central pulmonary vascular markings are prominent. The heart is borderline enlarged. The aorta is tortuous and calcified. There is no significant interim change Impression: No acute process Borderline cardiomegaly
--- NOTE | 2019-01-22 10:31 | Infectious Diseases Prog Note ---
Assessment/Plan Assessment/Plan antibiotics : vancomycin iv, cefepime A 1. UTI 2. left foot ulcers, MRI negative for osteomyelitis 3. CVA P 1. continue iv vancomycin, cefepime 2. will follow up cultures Subjective Constitutional: Denies: fever, chills Respiratory: Reports: dry cough - mild; Denies: shortness of breath Gastrointestinal/Abdominal: Reports: nausea, vomiting - yesterday; Denies: diarrhea Musculoskeletal: Reports: pain - in left foot Allergies: Coded Allergies: PENICILLINS (Verified Allergy, Mild, 04/21/10) Uncoded Allergies: SEAFOOD (Allergy, Mild, 04/21/10) Objective Vital Signs Last 24 Hour Vital Signs Date Time Temp Pulse Resp B/P (MAP) Pulse Ox O2 Delivery O2 Flow Rate FiO2 01/22/19 09:00 Room Air 01/22/19 08:57 114/51 01/22/19 08:00 98.1 97 16 114/51 (72) 95 01/22/19 06:47 69 16 99 Room Air 21 67 15 93 01/22/19 04:00 97.3 69 16 121/57 (78) 99 01/22/19 00:08 75 16 99 Room Air 21 72 18 98 01/22/19 00:00 97.6 86 18 120/59 (79) 96 01/21/19 21:00 Room Air 01/21/19 20:06 70 18 98 Room Air 21 68 20 95 01/21/19 20:00 98.0 76 18 128/61 (83) 96 01/21/19 16:00 98.6 79 18 110/69 (83) 97 01/21/19 12:00 98.2 96 18 115/62 (79) 95 Height (Feet): 5 Height (Inches): 5.00 Weight (Pounds): 164 Respiratory/Chest: lungs clear Cardiovascular: normal rate, regular rhythm, no gallop/murmur Abdomen: soft, non tender Extremities: no edema, other - left foot ulcers Microbiology Date/Time Source Procedure Growth Status 01/20/19 13:35 Blood Blood Culture - Preliminary NO GROWTH AFTER 24 HOURS Resulted 01/20/19 13:15 Blood Blood Culture - Preliminary NO GROWTH AFTER 24 HOURS Resulted 01/20/19 17:20 Urine,Clean Catch Urine Culture - Preliminary Resulted Laboratory Tests Test 01/21/19 14:20 01/22/19 05:56 Ionized Calcium (Measured) 0.96 mmol/L (1.10-1.35) L White Blood Count 9.3 K/UL (4.8-10.8) Red Blood Count 2.72 M/UL (4.20-5.40) L Hemoglobin 8.2 G/DL (12.0-16.0) L Hematocrit 25.9 % (37.0-47.0) L Mean Corpuscular Volume 95 FL (80-99) Mean Corpuscular Hemoglobin 30.0 PG (27.0-31.0) Mean Corpuscular Hemoglobin Concent 31.5 G/DL (32.0-36.0) L Red Cell Distribution Width 17.1 % (11.6-14.8) H Platelet Count 385 K/UL (150-450) Mean Platelet Volume 4.4 FL (6.5-10.1) L Neutrophils (%) (Auto) 66.3 % (45.0-75.0) Lymphocytes (%) (Auto) 22.0 % (20.0-45.0) Monocytes (%) (Auto) 4.7 % (1.0-10.0) Eosinophils (%) (Auto) 5.8 % (0.0-3.0) H Basophils (%) (Auto) 1.2 % (0.0-2.0) Sodium Level 141 MMOL/L (136-145) Potassium Level 4.1 MMOL/L (3.5-5.1) Chloride Level 110 MMOL/L (98-107) H Carbon Dioxide Level 28 MMOL/L (21-32) Anion Gap 3 mmol/L (5-15) L Blood Urea Nitrogen 13 mg/dL (7-18) Creatinine 0.9 MG/DL (0.55-1.30) Estimat Glomerular Filtration Rate mL/min (>60) Glucose Level 98 MG/DL (74-106) Calcium Level 7.8 MG/DL (8.5-10.1) L Iron Level 29 ug/dL (50-175) L Total Iron Binding Capacity 162 ug/dL (250-450) L Percent Iron Saturation 18 % (15-50) Unsaturated Iron Binding 133 ug/dL (112-346) Total Bilirubin 0.4 MG/DL (0.2-1.0) Aspartate Amino Transf (AST/SGOT) 16 U/L (15-37) Alanine Aminotransferase (ALT/SGPT) 9 U/L (12-78) L Alkaline Phosphatase 90 U/L (46-116) Total Protein 6.6 G/DL (6.4-8.2) Albumin 1.9 G/DL (3.4-5.0) L Globulin 4.7 g/dL Albumin/Globulin Ratio 0.4 (1.0-2.7) L Current Medications Medications (Trade) Dose Ordered Sig/Marge Route PRN Reason Start Time Stop Time Status Last Admin Dose Admin Acetaminophen (Tylenol) 650 mg Q6H PRN ORAL Mild Pain/Temp > 100.5 01/21/19 13:00 02/20/19 12:59 Albuterol/ Ipratropium (Albuterol/ Ipratropium) 3 ml Q6HRT HHN 01/21/19 01:00 01/26/19 00:59 01/22/19 06:37 Aspirin (ASA) 81 mg DAILY ORAL 01/21/19 09:00 02/20/19 08:59 01/22/19 08:57 Cefepime HCl 1 gm/ Dextrose 55 ml @ 110 mls/hr Q24H IVPB 01/21/19 14:00 01/28/19 13:59 01/21/19 15:09 Clopidogrel Bisulfate (Plavix) 75 mg DAILY ORAL 01/21/19 09:00 02/20/19 08:59 01/22/19 08:57 Docusate Sodium (Colace) 100 mg TWICE A DAY ORAL 01/21/19 18:00 02/20/19 17:59 01/22/19 08:57 Folic Acid (Folate) 1 mg DAILY ORAL 01/22/19 09:00 02/21/19 08:59 01/22/19 08:57 Heparin Sodium (Porcine) (Heparin 5000 units/ml) 5,000 units EVERY 8 HOURS SUBQ 01/21/19 06:00 02/20/19 05:59 01/22/19 05:31 Iron Sucrose 100 mg/Sodium Chloride 60 ml @ 240 mls/hr BEDTIME IV 01/22/19 21:00 01/26/19 21:14 Lisinopril (Prinivil) 20 mg DAILY ORAL 01/21/19 09:00 02/20/19 08:59 01/22/19 08:57 Lorazepam (Ativan) 1 mg Q6H PRN ORAL For Anxiety 01/21/19 23:30 01/28/19 23:29 Mirtazapine (Remeron) 7.5 mg BEDTIME ORAL 01/22/19 21:00 02/21/19 20:59 Vancomycin HCl (Vanco rx to dose) 1 ea DAILY PRN MISC Per rx protocol 01/20/19 22:00 02/19/19 21:59 Vancomycin HCl 1 gm/Sodium Chloride 275 ml @ 183.333 mls/hr 1600 IVPB 01/21/19 16:00 01/26/19 15:59 01/21/19 16:57 Sreedhar Murphy MD Jan 22, 2019 10:31
[2019-01-22 12:00] VITALS: BP 150/63
[2019-01-22] MEDS: Cefepime HCl 1 GM in D5W 55 ML IVPB SCH (13:26)
--- NOTE | 2019-01-22 13:42 | Diagnostic Imaging Report ---
Indication: Left foot pain Technique: 3 views left foot Comparison: none Findings: Positioning is limited, due to patient being contracted. On the lateral view, there is soft tissue ulcer posterior to the calcaneal tuberosity. No underlying cortical destruction or osteolytic lesion. The bones are osteoporotic. There are vascular calcifications. There is hammertoe deformities second through fifth digits. No definite acute fractures. No dislocations. Subchondral cysts described on subsequent MRI are not clearly visible on plain radiograph Impression: No acute process Osteoporosis Posterior heel soft tissue ulcer
--- NOTE | 2019-01-22 13:59 | Cardiology Report ---
APPROVED REPORT EKG Measurement Heart [id number] Sinus arrhythmia Nonspecific ST and T wave abnormality Abnormal ECG
[2019-01-22] MEDS: Vancomycin 1 GM in NS 275 ML IVPB SCH (15:05)
--- NOTE | 2019-01-22 15:31 | Surgery Progress Note ---
Surgery Progress Note Subjective Symptoms: improved Objective Last 24 Hour Vital Signs Date Time Temp Pulse Resp B/P (MAP) Pulse Ox O2 Delivery O2 Flow Rate FiO2 01/22/19 12:51 71 20 100 Room Air 21 68 20 95 01/22/19 12:00 97.9 80 18 150/63 (92) 94 01/22/19 09:00 Room Air 01/22/19 08:57 114/51 01/22/19 08:00 98.1 97 16 114/51 (72) 95 01/22/19 06:47 69 16 99 Room Air 21 67 15 93 01/22/19 04:00 97.3 69 16 121/57 (78) 99 01/22/19 00:08 75 16 99 Room Air 21 72 18 98 01/22/19 00:00 97.6 86 18 120/59 (79) 96 01/21/19 21:00 Room Air 01/21/19 20:06 70 18 98 Room Air 21 68 20 95 01/21/19 20:00 98.0 76 18 128/61 (83) 96 01/21/19 16:00 98.6 79 18 110/69 (83) 97 I&O Intake and Output 01/21/19 01/22/19 19:00 07:00 Intake Total 600 ml Output Total 300 ml Balance 600 ml -300 ml Other 600 ml Output Urine Total 300 ml Dressing: dry Wound: dry Cardiovascular: RSR Abdomen: non-tender, present bowel sounds Extremities: no edema, no tenderness, other Laboratory Tests Test 01/22/19 05:56 White Blood Count 9.3 K/UL (4.8-10.8) Red Blood Count 2.72 M/UL (4.20-5.40) L Hemoglobin 8.2 G/DL (12.0-16.0) L Hematocrit 25.9 % (37.0-47.0) L Mean Corpuscular Volume 95 FL (80-99) Mean Corpuscular Hemoglobin 30.0 PG (27.0-31.0) Mean Corpuscular Hemoglobin Concent 31.5 G/DL (32.0-36.0) L Red Cell Distribution Width 17.1 % (11.6-14.8) H Platelet Count 385 K/UL (150-450) Mean Platelet Volume 4.4 FL (6.5-10.1) L Neutrophils (%) (Auto) 66.3 % (45.0-75.0) Lymphocytes (%) (Auto) 22.0 % (20.0-45.0) Monocytes (%) (Auto) 4.7 % (1.0-10.0) Eosinophils (%) (Auto) 5.8 % (0.0-3.0) H Basophils (%) (Auto) 1.2 % (0.0-2.0) Sodium Level 141 MMOL/L (136-145) Potassium Level 4.1 MMOL/L (3.5-5.1) Chloride Level 110 MMOL/L (98-107) H Carbon Dioxide Level 28 MMOL/L (21-32) Anion Gap 3 mmol/L (5-15) L Blood Urea Nitrogen 13 mg/dL (7-18) Creatinine 0.9 MG/DL (0.55-1.30) Estimat Glomerular Filtration Rate mL/min (>60) Glucose Level 98 MG/DL (74-106) Calcium Level 7.8 MG/DL (8.5-10.1) L Iron Level 29 ug/dL (50-175) L Total Iron Binding Capacity 162 ug/dL (250-450) L Percent Iron Saturation 18 % (15-50) Unsaturated Iron Binding 133 ug/dL (112-346) Total Bilirubin 0.4 MG/DL (0.2-1.0) Aspartate Amino Transf (AST/SGOT) 16 U/L (15-37) Alanine Aminotransferase (ALT/SGPT) 9 U/L (12-78) L Alkaline Phosphatase 90 U/L (46-116) Total Protein 6.6 G/DL (6.4-8.2) Albumin 1.9 G/DL (3.4-5.0) L Globulin 4.7 g/dL Albumin/Globulin Ratio 0.4 (1.0-2.7) L Plan Problems: (1) Foot ulcer Assessment & Plan: Pt presented on admission grossly unkempt with multiple pressure injuries. Moisture intertrigo noted to abdominal folds,R and L groin. Skin folds erythematous ,grossly denuded and malodorous. Dry scab noted to L knee which pt stated was from fall in her home. Full thickness stage 3 pressure injury upper/outer R buttocks. Base of wound 75 % necrotic,25% viable with surrounding dark borders. Small amt seropurulent exudate. No odor noted.(L)10.5cm x (W)5.8cm. Open DTPI upper/inner aspect R buttocks. Base of wound black and fluctuant,10% viable.(L)1.5cm x (W)2.7cm. Full thickness stage 3 pressure injury sacrococcygeal area Base of wound is maroon, with multiple small open wounds with slough that are within base of wound.Small amt sanguineous exudate noted. Pt complained of pain when minimally palpated.(L)4.5cm x (W)2.7cm.Periwound macerated with non-blanching erythema. Full thickness stage 3 pressure injury with undermining L ischium. Scattered slough at base of wound. Mild odor noted. Small amt purulent exudate noted. Borders are erythematous and macerated.Mild odor noted.(L)7cm x (W)10.5cmx (D) 1.1cm,undermining clockwise 1-6 by 3.2cm @3o'clock. Full thickness stage 3 pressure injury noted to upper lateral/posterior R thigh. Base of wound is 90% necrotic with surrounding slough. erythematous borders. (L)1cm x (W)2.7cm. Full thickness stage 3 ulcer plantar R foot. Base of wound 25% necrotic,75% fibrinous slough. borers are macerated . Small amt. londono coloured exudate noted. Wound is malodorous.(L)1.5cm x (W)3.5cm. Large blood filled blister noted to lateral/plantar L foot (L)7.5cm x (W)8.3cm. Full thickness stage 3 ulcer noted to L 1st metatarsal head (L)0.8cm x (W) 0.5cm. Small amt sanguineous exudate noted. Moist peeling skin periwound. Small ulcers noted to L 4th and 5th metatarsals. Each wound noted to have small amt sanguineous exudate. Full thickness stage 3 ulcer noted L heel. Base of wound 40% necrotic, with scattered slough. Borders macerated and erythematous. Small amt. malodorous londono coloured exudate.(L)6.5cm x (W)8.8cm. R heel boggy with non-blanching erythema. Tx.Plan: Cleanse wounds Buttocks with Saline. Apply Therahoney to each wound. Apply Moisture Barrier Paste periwound. Cover each wound with Optifoam drsgs.Change every 3 days and prn. Cleanse wound L ischium with Saline. Loosely pack with Therahoney impregnated Kerlix Gauze. Apply Moisture Barrier Paste periwound. Cover with Optifoam drsg. Change every 3 days and prn. Cleanse wound posterior upper L thigh with Saline. Apply TheraHoney. Apply Cavilon Skin Barrier periwound. Cover with Optifoam drsg every 3 days and prn. Cleanse wounds L heel with Saline. Apply Therahoney. Apply Cavilon Skin Barrier periwound.Cover with Abd Pad. Wrap with Kerlix every 3days and prn. Cleanse wounds L st,4th and 5th metatarsals with Saline weave dry gauze between toes Daily and prn. Apply Cavilon Skin Barrier to DTPI L foot. Cover with Abd Pad. Wrap with Kerlix every 3 days and prn. Apply Cavilon Skin Barrier to R heel. Cover with Optifoam drsg. Change every 7 days and prn. Apply Antifungal Powder to Clean,Dry Skin in abdominal folds, R and L groin with ABD pads in skin folds Twice Daily. Air Fluidized Mattress. Reposition at least every 2hours or as tolerated. Place pillow between knees. Off-load heels with Pillow. (2) Cellulitis Assessment & Plan: Abx as per ID wounds will need care while in hospital with good care on d/c as not well kept Bone marrow signal is normal and preserved throughout the calcaneus. There is some absence of subcutaneous fat posterior to the calcaneus consistent with a given history of chronic ulceration in this location. There is also generalized subcutaneous edema involving the ankle specially on the lateral side. There is no evidence of an abnormal fluid collection. There are multiple periventricular cystic foci mainly in the subchondral bone within several intertarsal joints. There is a trace amount of fluid in the retrocalcaneal bursa. The Achilles tendon and plantar aponeurosis appear unremarkable. No evidence of acute osteomyelitis. Multiple cystic periarticular signal abnormalities, at least one of which is visible by plain x-ray involving the first interphalangeal joint. Consider gout or other inflammatory arthropathies. Differential includes subchondral geodes. RIGHT LEG: Common femoral artery waveform analysis is within normal limits at rest. Color flow duplex sonography reveals calcification throughout the superficial femoral artery. A mild (40-50%) stenosis is seen in the superficial femoral artery. There is no evidence of occlusion within this segment. The popliteal artery is patent. The tibioperoneal trunk was not well visualized. The distal posterior and dorsalis pedis arteries are also calcified. The Doppler tibial artery waveform analysis is compatible with moderate ischemia at rest. Doppler tibial artery waveform analysis is compatible with moderate ischemia at rest. LEFT LEG: Common femoral artery waveform analysis is within normal limits at rest. Color flow duplex sonography reveals calcification throughout the superficial femoral artery. A mild (40-50%) stenosis is seen in the superficial femoral artery. There is no evidence of occlusion within this segment. The popliteal artery is patent. The tibioperoneal trunk was not well visualized. The distal posterior and dorsalis pedis arteries are also calcified. The Doppler tibial artery waveform analysis is compatible with moderate ischemia at rest. Doppler tibial artery waveform analysis is compatible with moderate to severe ischemia at rest. multiple and in different areas needs aggressive care nutritional support will follow with recs thank you Lakhwinder Dai Jan 22, 2019 15:31
[2019-01-22 16:00] VITALS: BP 126/55
--- NOTE | 2019-01-22 19:45 | Progress Note ---
DATE: 01/22/2019 SUBJECTIVE: The patient is in bed, asleep, week, frail. The patient is confused, disoriented, unable to provide any meaningful information. MENTAL STATUS EXAMINATION: The patient is alert, oriented times self. Mood is dysphoric. Affect is constricted, congruent with mood. Thought process, there is a paucity of thought content. Thought content, no suicidal or homicidal ideation. Cognition is impaired. Insight and judgment non-existent. ASSESSMENT: Dementia with behavioral disturbance. PLAN: 1. We will continue current psychotropic medications. 2. Provide the patient with reality orientation and supportive therapy. 3. The patient should go to SNF. Lela Crawford M.D. DR: VERONICA JOB#: [id number] CC:
[2019-01-22 20:00] VITALS: BP 143/63
[2019-01-22] MEDS: Iron Sucrose 100 MG in NS 55 ML IV SCH (21:35)
--- NOTE | 2019-01-22 22:01 | Consultation ---
DATE OF CONSULTATION: 01/20/2019 PULMONARY CONSULTATION HISTORY OF PRESENT ILLNESS: This is an 88-year-old, who came in to the hospital with foot pain. She reports a history of previous CVA. She also reports DVT. She has been seen and worked up and there is a concern about pneumonia. I have been asked to consult at this time. The patient is unable to provide any further history as she is a very poor historian. Upon review of her imaging studies, I note that she has evidence of clear lung mcdonald bilaterally with borderline cardiomegaly. Per review of her laboratory testing, I do not see evidence of leukocytosis. Per review of her flow sheet, there is no fever noted. PAST MEDICAL HISTORY: Notable for previous stroke and previous decubitus. SOCIAL HISTORY: Lives at home with family. No history of alcohol or tobacco usage. Denies any headaches, hematemesis, melena, or hematochezia. PHYSICAL EXAMINATION: GENERAL: Reveals an elderly female. HEENT: Unremarkable. LUNGS: Clear breath sounds bilaterally. ABDOMEN: Soft. EXTREMITIES: There is no edema. She has a large wound over the left heel as well as a blister on the lateral aspect of the foot. There is also a stage III buttock and sacral area. LABORATORY DATA: UA shows few WBC. There is no leukocytosis as discussed above. IMPRESSION: 1. Multiple pressure wounds. 2. UTI. 3. No evidence of pneumonia. 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 Currently, she is normoxemic. Rule out leukocytosis or evidence of pneumonia antibiotics per ID. We will follow. Jus Patel M.D. DR: FAYE JOB#: [id number] CC:
--- NOTE | 2019-01-22 23:45 | Progress Note ---
DATE: 01/22/2019 CARDIOLOGY PROGRESS NOTE SUBJECTIVE: Status quo. No shortness of breath. Repeat chest x-ray clear. MRI negative for osteo. Cultures negative so far. The patient still complains of a lot of pain in her foot. OBJECTIVE: VITAL SIGNS: Blood pressure 126/55, heart rate 70, and respiratory rate 18. LUNGS: Few rhonchi. Diminished breath sounds. CARDIAC: Regular rhythm and rate. Normal S1, S2. ABDOMEN: Soft. EXTREMITIES: No edema. IMPRESSION: 1. Cellulitis. 2. Peripheral artery disease with mild to moderate ischemia. 3. Folic acid deficiency 4. Iron deficiency. 5. Anemia of chronic disease and iron deficiency. 6. Hypertensive heart disease. 7. Degenerative valve disease. PLAN: 1. Antimicrobials. 2. Wound care. 3. Continue anti-platelet therapy. 4. Titrate antihypertensives. 5. We would not add statin drugs in view of very low lipid parameters. James Archibald M.D. DR: MELISA JOB#: [id number] CC:
[2019-01-23] VITALS: BP 129/51
[2019-01-23] MEDS: Albuterol/Ipratropium 3ml neb HHN SCH ×4 (00:45→20:15)
[2019-01-23 04:00] VITALS: BP 134/69
[2019-01-23] MEDS: Heparin 5000 units/ml inj SUBQ SCH ×3 (06:01→21:49)
[2019-01-23 07:34] LABS: BASOPHILS % (AUTO) 1.3 % (0.0-2.0); LYMPHOCYTES % (AUTO) 23.4 % (20.0-45.0); MEAN CORPUSCULAR VOLUME 95 FL (80-99); MONOCYTES % (AUTO) 5.5 % (1.0-10.0); NEUTROPHILS % (AUTO) 58.8 % (45.0-75.0); PLATELET COUNT 397 K/UL (150-450); RED BLOOD COUNT 2.64 M/UL (4.20-5.40); RED CELL DISTRIBUTION WIDTH 16.9 % (11.6-14.8); WHITE BLOOD COUNT 8.1 K/UL (4.8-10.8)
[2019-01-23 07:46] LABS: ALANINE AMINOTRANSFERASE 7 U/L (12-78); ALBUMIN 1.8 G/DL (3.4-5.0); ALBUMIN/GLOBULIN RATIO 0.4 (1.0-2.7); ALKALINE PHOSPHATASE 85 U/L (46-116); ANION GAP 8 mmol/L (5-15); ASPARTATE AMINO TRANSFERASE 16 U/L (15-37); BILIRUBIN,TOTAL 0.4 MG/DL (0.2-1.0); BLOOD UREA NITROGEN 13 mg/dL (7-18); CALCIUM 7.7 MG/DL (8.5-10.1); CARBON DIOXIDE 25 MMOL/L (21-32); CHLORIDE 108 MMOL/L (98-107); CREATININE 0.8 MG/DL (0.55-1.30); SODIUM 141 MMOL/L (136-145)
[2019-01-23 08:00] VITALS: BP 128/68
[2019-01-23] MEDS: Lisinopril 20mg tab ORAL SCH (09:03)
[2019-01-23] MEDS: Docusate 100mg cap ORAL SCH ×2 (09:03→17:13)
[2019-01-23] MEDS: Aspirin Baby 81mg ORAL SCH (09:04)
--- NOTE | 2019-01-23 10:46 | Pulmonology Progress Note ---
Assessment/Plan Assessment/Plan IMPRESSION: 1. Multiple pressure wounds. 2. UTI. 3. No evidence of pneumonia. DISCUSSION: I will follow as rn perinatal. Currently, she is normoxemic. Continue antibiotics per ID. Jus Patel M.D. Subjective Interval Events: None new Constitutional: Reports: no symptoms HEENT: Repors: no symptoms Respiratory: Reports: no symptoms Cardiovascular: Reports: no symptoms Allergies: Coded Allergies: PENICILLINS (Verified Allergy, Mild, 04/21/10) Uncoded Allergies: SEAFOOD (Allergy, Mild, 04/21/10) Objective Last 24 Hour Vital Signs Date Time Temp Pulse Resp B/P (MAP) Pulse Ox O2 Delivery O2 Flow Rate FiO2 01/23/19 09:03 128/68 01/23/19 09:00 Room Air 01/23/19 08:00 97.9 96 19 128/68 (88) 98 01/23/19 07:36 92 20 100 Room Air 21 90 18 97 01/23/19 04:00 97.6 74 17 134/69 (90) 95 01/23/19 00:55 71 18 99 Room Air 21 01/23/19 00:45 73 18 97 Room Air 21 01/23/19 00:00 97.7 73 18 129/51 (77) 100 01/22/19 21:00 Room Air 01/22/19 20:00 97.7 81 18 143/63 (89) 95 01/22/19 19:52 77 18 99 Room Air 21 01/22/19 19:42 76 18 96 Room Air 21 01/22/19 18:16 98.1 01/22/19 16:00 98.1 70 18 126/55 (78) 95 01/22/19 12:51 71 20 100 Room Air 21 68 20 95 01/22/19 12:00 97.9 80 18 150/63 (92) 94 Intake and Output 01/22/19 01/23/19 19:00 07:00 Intake Total 1296.666 ml Output Total 600 ml 300 ml Balance 696.666 ml -300 ml Intake Oral 820 ml IV Total 476.666 ml Output Urine Total 600 ml 300 ml General Appearance: no acute distress HEENT: normocephalic Respiratory/Chest: chest wall non-tender, lungs clear Cardiovascular: normal rate Microbiology Date/Time Source Procedure Growth Status 01/20/19 13:35 Blood Blood Culture - Preliminary NO GROWTH AFTER 48 HOURS Resulted 01/20/19 13:15 Blood Blood Culture - Preliminary NO GROWTH AFTER 48 HOURS Resulted 01/21/19 22:30 Nasal Nares MRSA Culture - 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 Complete 01/20/19 17:20 Urine,Clean Catch Urine Culture - Preliminary Strep Species, Gamma-Hemolytic Resulted Laboratory Tests 01/23/19 06:20: White Blood Count 8.1, Red Blood Count 2.64L, Hemoglobin 8.0L, Hematocrit 25.0L , Mean Corpuscular Volume 95, Mean Corpuscular Hemoglobin 30.2, Mean Corpuscular Hemoglobin Concent 31.9L, Red Cell Distribution Width 16.9H, Platelet Count 397, Mean Platelet Volume 4.0L, Neutrophils (%) (Auto) 58.8, Lymphocytes (%) (Auto) 23.4, Monocytes (%) (Auto) 5.5, Eosinophils (%) (Auto) 11.0H, Basophils (%) (Auto) 1.3, Sodium Level 141, Potassium Level 4.0, Chloride Level 108H, Carbon Dioxide Level 25, Anion Gap 8, Blood Urea Nitrogen 13, Creatinine 0.8, Estimat Glomerular Filtration Rate , Glucose Level 90, Calcium Level 7.7L, Total Bilirubin 0.4, Aspartate Amino Transf (AST/SGOT) 16, Alanine Aminotransferase (ALT/SGPT) 7L, Alkaline Phosphatase 85, Total Protein 6.2L, Albumin 1.8L, Globulin 4.4, Albumin/Globulin Ratio 0.4L Current Medications Medications (Trade) Dose Ordered Sig/Marge Route PRN Reason Start Time Stop Time Status Last Admin Dose Admin Acetaminophen (Tylenol) 650 mg Q6H PRN ORAL Mild Pain/Temp > 100.5 01/21/19 13:00 02/20/19 12:59 01/22/19 17:46 Albuterol/ Ipratropium (Albuterol/ Ipratropium) 3 ml Q6HRT HHN 01/21/19 01:00 01/26/19 00:59 01/23/19 07:26 Aspirin (ASA) 81 mg DAILY ORAL 01/21/19 09:00 02/20/19 08:59 01/23/19 09:04 Cefepime HCl 1 gm/ Dextrose 55 ml @ 110 mls/hr Q24H IVPB 01/21/19 14:00 01/28/19 13:59 01/22/19 13:26 Clopidogrel Bisulfate (Plavix) 75 mg DAILY ORAL 01/21/19 09:00 02/20/19 08:59 01/23/19 09:04 Docusate Sodium (Colace) 100 mg TWICE A DAY ORAL 01/21/19 18:00 02/20/19 17:59 01/23/19 09:03 Folic Acid (Folate) 1 mg DAILY ORAL 01/22/19 09:00 02/21/19 08:59 01/23/19 09:04 Heparin Sodium (Porcine) (Heparin 5000 units/ml) 5,000 units EVERY 8 HOURS SUBQ 01/21/19 06:00 02/20/19 05:59 01/23/19 06:01 Iron Sucrose 100 mg/Sodium Chloride 60 ml @ 240 mls/hr BEDTIME IV 01/22/19 21:00 01/26/19 21:14 01/22/19 21:35 Lisinopril (Prinivil) 20 mg DAILY ORAL 01/21/19 09:00 02/20/19 08:59 01/23/19 09:03 Lorazepam (Ativan) 1 mg Q6H PRN ORAL For Anxiety 01/21/19 23:30 01/28/19 23:29 Mirtazapine (Remeron) 7.5 mg BEDTIME ORAL 01/22/19 21:00 02/21/19 20:59 01/22/19 21:33 Vancomycin HCl (Vanco rx to dose) 1 ea DAILY PRN MISC Per rx protocol 01/20/19 22:00 02/19/19 21:59 Vancomycin HCl 1 gm/Sodium Chloride 275 ml @ 183.333 mls/hr 1600 IVPB 01/21/19 16:00 01/26/19 15:59 01/22/19 15:05 Jus Patel MD Jan 23, 2019 10:46
--- NOTE | 2019-01-23 10:46 | Infectious Diseases Prog Note ---
Assessment/Plan Assessment/Plan antibiotics : vancomycin iv, cefepime A 1. streptococcus UTI 2. left foot ulcers, MRI negative for osteomyelitis 3. CVA P 1. continue iv vancomycin 2. d/c cefepime 3. will follow up cultures Subjective Constitutional: Denies: fever, chills Respiratory: Denies: shortness of breath, dry cough Gastrointestinal/Abdominal: Denies: nausea, vomiting, diarrhea Musculoskeletal: Denies: pain Allergies: Coded Allergies: PENICILLINS (Verified Allergy, Mild, 04/21/10) Uncoded Allergies: SEAFOOD (Allergy, Mild, 04/21/10) Objective Vital Signs Last 24 Hour Vital Signs Date Time Temp Pulse Resp B/P (MAP) Pulse Ox O2 Delivery O2 Flow Rate FiO2 01/23/19 09:03 128/68 01/23/19 09:00 Room Air 01/23/19 08:00 97.9 96 19 128/68 (88) 98 01/23/19 07:36 92 20 100 Room Air 21 90 18 97 01/23/19 04:00 97.6 74 17 134/69 (90) 95 01/23/19 00:55 71 18 99 Room Air 21 01/23/19 00:45 73 18 97 Room Air 21 01/23/19 00:00 97.7 73 18 129/51 (77) 100 01/22/19 21:00 Room Air 01/22/19 20:00 97.7 81 18 143/63 (89) 95 01/22/19 19:52 77 18 99 Room Air 21 01/22/19 19:42 76 18 96 Room Air 21 01/22/19 18:16 98.1 01/22/19 16:00 98.1 70 18 126/55 (78) 95 01/22/19 12:51 71 20 100 Room Air 21 68 20 95 01/22/19 12:00 97.9 80 18 150/63 (92) 94 Height (Feet): 5 Height (Inches): 5.00 Weight (Pounds): 164 Respiratory/Chest: lungs clear Cardiovascular: normal rate, regular rhythm, no gallop/murmur Abdomen: soft, non tender Extremities: no edema, other - left foot in dressings Microbiology Date/Time Source Procedure Growth Status 01/20/19 13:35 Blood Blood Culture - Preliminary NO GROWTH AFTER 48 HOURS Resulted 01/20/19 13:15 Blood Blood Culture - Preliminary NO GROWTH AFTER 48 HOURS Resulted 01/21/19 22:30 Nasal Nares MRSA Culture - 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 Complete 01/20/19 17:20 Urine,Clean Catch Urine Culture - Preliminary Strep Species, Gamma-Hemolytic Resulted Laboratory Tests Test 01/23/19 06:20 White Blood Count 8.1 K/UL (4.8-10.8) Red Blood Count 2.64 M/UL (4.20-5.40) L Hemoglobin 8.0 G/DL (12.0-16.0) L Hematocrit 25.0 % (37.0-47.0) L Mean Corpuscular Volume 95 FL (80-99) Mean Corpuscular Hemoglobin 30.2 PG (27.0-31.0) Mean Corpuscular Hemoglobin Concent 31.9 G/DL (32.0-36.0) L Red Cell Distribution Width 16.9 % (11.6-14.8) H Platelet Count 397 K/UL (150-450) Mean Platelet Volume 4.0 FL (6.5-10.1) L Neutrophils (%) (Auto) 58.8 % (45.0-75.0) Lymphocytes (%) (Auto) 23.4 % (20.0-45.0) Monocytes (%) (Auto) 5.5 % (1.0-10.0) Eosinophils (%) (Auto) 11.0 % (0.0-3.0) H Basophils (%) (Auto) 1.3 % (0.0-2.0) Sodium Level 141 MMOL/L (136-145) Potassium Level 4.0 MMOL/L (3.5-5.1) Chloride Level 108 MMOL/L (98-107) H Carbon Dioxide Level 25 MMOL/L (21-32) Anion Gap 8 mmol/L (5-15) Blood Urea Nitrogen 13 mg/dL (7-18) Creatinine 0.8 MG/DL (0.55-1.30) Estimat Glomerular Filtration Rate mL/min (>60) Glucose Level 90 MG/DL (74-106) Calcium Level 7.7 MG/DL (8.5-10.1) L Total Bilirubin 0.4 MG/DL (0.2-1.0) Aspartate Amino Transf (AST/SGOT) 16 U/L (15-37) Alanine Aminotransferase (ALT/SGPT) 7 U/L (12-78) L Alkaline Phosphatase 85 U/L (46-116) Total Protein 6.2 G/DL (6.4-8.2) L Albumin 1.8 G/DL (3.4-5.0) L Globulin 4.4 g/dL Albumin/Globulin Ratio 0.4 (1.0-2.7) L Current Medications Medications (Trade) Dose Ordered Sig/Marge Route PRN Reason Start Time Stop Time Status Last Admin Dose Admin Acetaminophen (Tylenol) 650 mg Q6H PRN ORAL Mild Pain/Temp > 100.5 01/21/19 13:00 02/20/19 12:59 01/22/19 17:46 Albuterol/ Ipratropium (Albuterol/ Ipratropium) 3 ml Q6HRT HHN 01/21/19 01:00 01/26/19 00:59 01/23/19 07:26 Aspirin (ASA) 81 mg DAILY ORAL 01/21/19 09:00 02/20/19 08:59 01/23/19 09:04 Cefepime HCl 1 gm/ Dextrose 55 ml @ 110 mls/hr Q24H IVPB 01/21/19 14:00 01/28/19 13:59 01/22/19 13:26 Clopidogrel Bisulfate (Plavix) 75 mg DAILY ORAL 01/21/19 09:00 02/20/19 08:59 01/23/19 09:04 Docusate Sodium (Colace) 100 mg TWICE A DAY ORAL 01/21/19 18:00 02/20/19 17:59 01/23/19 09:03 Folic Acid (Folate) 1 mg DAILY ORAL 01/22/19 09:00 02/21/19 08:59 01/23/19 09:04 Heparin Sodium (Porcine) (Heparin 5000 units/ml) 5,000 units EVERY 8 HOURS SUBQ 01/21/19 06:00 02/20/19 05:59 01/23/19 06:01 Iron Sucrose 100 mg/Sodium Chloride 60 ml @ 240 mls/hr BEDTIME IV 01/22/19 21:00 01/26/19 21:14 01/22/19 21:35 Lisinopril (Prinivil) 20 mg DAILY ORAL 01/21/19 09:00 02/20/19 08:59 01/23/19 09:03 Lorazepam (Ativan) 1 mg Q6H PRN ORAL For Anxiety 01/21/19 23:30 01/28/19 23:29 Mirtazapine (Remeron) 7.5 mg BEDTIME ORAL 01/22/19 21:00 02/21/19 20:59 01/22/19 21:33 Vancomycin HCl (Vanco rx to dose) 1 ea DAILY PRN MISC Per rx protocol 01/20/19 22:00 02/19/19 21:59 Vancomycin HCl 1 gm/Sodium Chloride 275 ml @ 183.333 mls/hr 1600 IVPB 01/21/19 16:00 01/26/19 15:59 01/22/19 15:05 Sreedhar Murphy MD Jan 23, 2019 10:46
--- NOTE | 2019-01-23 11:53 | General Progress Note ---
Assessment/Plan Problem List: (1) CVA (cerebral vascular accident) ICD Codes: I63.9 - Cerebral infarction, unspecified SNOMED: 368069052 (2) Anemia ICD Codes: D64.9 - Anemia, unspecified SNOMED: 600481542 (3) UTI (urinary tract infection) ICD Codes: N39.0 - Urinary tract infection, site not specified SNOMED: 77595510 (4) Foot ulcer ICD Codes: L97.509 - Non-pressure chronic ulcer of other part of unspecified foot with unspecified severity SNOMED: 80972847 (5) Pneumonia ICD Codes: J18.9 - Pneumonia, unspecified organism SNOMED: 707897998 (6) Cellulitis ICD Codes: L03.90 - Cellulitis, unspecified SNOMED: 112507080 (7) Pedal edema ICD Codes: R60.0 - Localized edema SNOMED: 636798649 (8) Chronic deep vein thrombosis (DVT) ICD Codes: I82.509 - Chronic embolism and thrombosis of unspecified deep veins of unspecified lower extremity SNOMED: 67468603942754518 Status: stable, progressing Assessment/Plan: cont wound care airmatress turn q2 heel protectors iv abx per if monitor h/h antiplt rx- watch for bleeding check stool ob Subjective Allergies: Coded Allergies: PENICILLINS (Verified Allergy, Mild, 04/21/10) Uncoded Allergies: SEAFOOD (Allergy, Mild, 04/21/10) Subjective no events. no new complaints. MRI left foot neg for osteo. h/h stable. on iv iron. no bleeding. Objective Last 24 Hour Vital Signs Date Time Temp Pulse Resp B/P (MAP) Pulse Ox O2 Delivery O2 Flow Rate FiO2 01/23/19 09:03 128/68 01/23/19 09:00 Room Air 01/23/19 08:00 97.9 96 19 128/68 (88) 98 01/23/19 07:36 92 20 100 Room Air 21 90 18 97 01/23/19 04:00 97.6 74 17 134/69 (90) 95 01/23/19 00:55 71 18 99 Room Air 21 01/23/19 00:45 73 18 97 Room Air 21 01/23/19 00:00 97.7 73 18 129/51 (77) 100 11/22/19 21:00 Room Air 01/22/19 20:00 97.7 81 18 143/63 (89) 95 01/22/19 19:52 77 18 99 Room Air 21 01/22/19 19:42 76 18 96 Room Air 21 01/22/19 18:16 98.1 01/22/19 16:00 98.1 70 18 126/55 (78) 95 01/22/19 12:51 71 20 100 Room Air 21 68 20 95 01/22/19 12:00 97.9 80 18 150/63 (92) 94 Intake and Output 01/22/19 01/23/19 19:00 07:00 Intake Total 1296.666 ml Output Total 600 ml 300 ml Balance 696.666 ml -300 ml Intake Oral 820 ml IV Total 476.666 ml Output Urine Total 600 ml 300 ml Laboratory Tests 01/23/19 06:20: White Blood Count 8.1, Red Blood Count 2.64L, Hemoglobin 8.0L, Hematocrit 25.0L , Mean Corpuscular Volume 95, Mean Corpuscular Hemoglobin 30.2, Mean Corpuscular Hemoglobin Concent 31.9L, Red Cell Distribution Width 16.9H, Platelet Count 397, Mean Platelet Volume 4.0L, Neutrophils (%) (Auto) 58.8, Lymphocytes (%) (Auto) 23.4, Monocytes (%) (Auto) 5.5, Eosinophils (%) (Auto) 11.0H, Basophils (%) (Auto) 1.3, Sodium Level 141, Potassium Level 4.0, Chloride Level 108H, Carbon Dioxide Level 25, Anion Gap 8, Blood Urea Nitrogen 13, Creatinine 0.8, Estimat Glomerular Filtration Rate , Glucose Level 90, Calcium Level 7.7L, Total Bilirubin 0.4, Aspartate Amino Transf (AST/SGOT) 16, Alanine Aminotransferase (ALT/SGPT) 7L, Alkaline Phosphatase 85, Total Protein 6.2L, Albumin 1.8L, Globulin 4.4, Albumin/Globulin Ratio 0.4L Height (Feet): 5 Height (Inches): 5.00 Weight (Pounds): 164 General Appearance: alert Neck: supple Cardiovascular: normal rate, regular rhythm Respiratory/Chest: chest wall non-tender, lungs clear, normal breath sounds, no respiratory distress, no accessory muscle use Abdomen: normal bowel sounds, non tender, soft, no organomegaly Edema: no edema noted Arm (L), no edema noted Arm (R), no edema noted Leg (L), no edema noted Leg (R), no edema noted Pedal (L), no edema noted Pedal (R), no edema noted 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
[2019-01-23 12:00] VITALS: BP 119/96
--- NOTE | 2019-01-23 13:21 | Surgery Progress Note ---
Surgery Progress Note Subjective Additional Comments no acute events comfortable stable labs noted exam stable Objective Last 24 Hour Vital Signs Date Time Temp Pulse Resp B/P (MAP) Pulse Ox O2 Delivery O2 Flow Rate FiO2 01/23/19 12:46 79 20 100 Room Air 21 76 18 96 01/23/19 12:00 97.4 86 19 119/96 (104) 99 01/23/19 09:03 128/68 01/23/19 09:00 Room Air 01/23/19 08:00 97.9 96 19 128/68 (88) 98 01/23/19 07:36 92 20 100 Room Air 21 90 18 97 01/23/19 04:00 97.6 74 17 134/69 (90) 95 01/23/19 00:55 71 18 99 Room Air 21 01/23/19 00:45 73 18 97 Room Air 21 01/23/19 00:00 97.7 73 18 129/51 (77) 100 01/22/19 21:00 Room Air 01/22/19 20:00 97.7 81 18 143/63 (89) 95 01/22/19 19:52 77 18 99 Room Air 21 01/22/19 19:42 76 18 96 Room Air 21 01/22/19 18:16 98.1 01/22/19 16:00 98.1 70 18 126/55 (78) 95 I&O Intake and Output 01/22/19 01/23/19 19:00 07:00 Intake Total 1296.666 ml Output Total 600 ml 300 ml Balance 696.666 ml -300 ml Intake Oral 820 ml IV Total 476.666 ml Output Urine Total 600 ml 300 ml Dressing: saturated Wound: other Drains: other Cardiovascular: RSR Respiratory: decreased breath sounds Abdomen: soft, present bowel sounds Extremities: no cyanosis, other Laboratory Tests Test 01/23/19 06:20 White Blood Count 8.1 K/UL (4.8-10.8) Red Blood Count 2.64 M/UL (4.20-5.40) L Hemoglobin 8.0 G/DL (12.0-16.0) L Hematocrit 25.0 % (37.0-47.0) L Mean Corpuscular Volume 95 FL (80-99) Mean Corpuscular Hemoglobin 30.2 PG (27.0-31.0) Mean Corpuscular Hemoglobin Concent 31.9 G/DL (32.0-36.0) L Red Cell Distribution Width 16.9 % (11.6-14.8) H Platelet Count 397 K/UL (150-450) Mean Platelet Volume 4.0 FL (6.5-10.1) L Neutrophils (%) (Auto) 58.8 % (45.0-75.0) Lymphocytes (%) (Auto) 23.4 % (20.0-45.0) Monocytes (%) (Auto) 5.5 % (1.0-10.0) Eosinophils (%) (Auto) 11.0 % (0.0-3.0) H Basophils (%) (Auto) 1.3 % (0.0-2.0) Sodium Level 141 MMOL/L (136-145) Potassium Level 4.0 MMOL/L (3.5-5.1) Chloride Level 108 MMOL/L (98-107) H Carbon Dioxide Level 25 MMOL/L (21-32) Anion Gap 8 mmol/L (5-15) Blood Urea Nitrogen 13 mg/dL (7-18) Creatinine 0.8 MG/DL (0.55-1.30) Estimat Glomerular Filtration Rate mL/min (>60) Glucose Level 90 MG/DL (74-106) Calcium Level 7.7 MG/DL (8.5-10.1) L Total Bilirubin 0.4 MG/DL (0.2-1.0) Aspartate Amino Transf (AST/SGOT) 16 U/L (15-37) Alanine Aminotransferase (ALT/SGPT) 7 U/L (12-78) L Alkaline Phosphatase 85 U/L (46-116) Total Protein 6.2 G/DL (6.4-8.2) L Albumin 1.8 G/DL (3.4-5.0) L Globulin 4.4 g/dL Albumin/Globulin Ratio 0.4 (1.0-2.7) L Plan Problems: (1) Foot ulcer Assessment & Plan: Pt presented on admission grossly unkempt with multiple pressure injuries. Moisture intertrigo noted to abdominal folds,R and L groin. Skin folds erythematous ,grossly denuded and malodorous. Dry scab noted to L knee which pt stated was from fall in her home. Full thickness stage 3 pressure injury upper/outer R buttocks. Base of wound 75 % necrotic,25% viable with surrounding dark borders. Small amt seropurulent exudate. No odor noted.(L)10.5cm x (W)5.8cm. Open DTPI upper/inner aspect R buttocks. Base of wound black and fluctuant,10% viable.(L)1.5cm x (W)2.7cm. Full thickness stage 3 pressure injury sacrococcygeal area Base of wound is maroon, with multiple small open wounds with slough that are within base of wound.Small amt sanguineous exudate noted. Pt complained of pain when minimally palpated.(L)4.5cm x (W)2.7cm.Periwound macerated with non-blanching erythema. Full thickness stage 3 pressure injury with undermining L ischium. Scattered slough at base of wound. Mild odor noted. Small amt purulent exudate noted. Borders are erythematous and macerated.Mild odor noted.(L)7cm x (W)10.5cmx (D) 1.1cm,undermining clockwise 1-6 by 3.2cm @3o'clock. Full thickness stage 3 pressure injury noted to upper lateral/posterior R thigh. Base of wound is 90% necrotic with surrounding slough. erythematous borders. (L)1cm x (W)2.7cm. Full thickness stage 3 ulcer plantar R foot. Base of wound 25% necrotic,75% fibrinous slough. borers are macerated . Small amt. londono coloured exudate noted. Wound is malodorous.(L)1.5cm x (W)3.5cm. Large blood filled blister noted to lateral/plantar L foot (L)7.5cm x (W)8.3cm. Full thickness stage 3 ulcer noted to L 1st metatarsal head (L)0.8cm x (W) 0.5cm. Small amt sanguineous exudate noted. Moist peeling skin periwound. Small ulcers noted to L 4th and 5th metatarsals. Each wound noted to have small amt sanguineous exudate. Full thickness stage 3 ulcer noted L heel. Base of wound 40% necrotic, with scattered slough. Borders macerated and erythematous. Small amt. malodorous londono coloured exudate.(L)6.5cm x (W)8.8cm. R heel boggy with non-blanching erythema. Tx.Plan: Cleanse wounds Buttocks with Saline. Apply Therahoney to each wound. Apply Moisture Barrier Paste periwound. Cover each wound with Optifoam drsgs.Change every 3 days and prn. Cleanse wound L ischium with Saline. Loosely pack with Therahoney impregnated Kerlix Gauze. Apply Moisture Barrier Paste periwound. Cover with Optifoam drsg. Change every 3 days and prn. Cleanse wound posterior upper L thigh with Saline. Apply TheraHoney. Apply Cavilon Skin Barrier periwound. Cover with Optifoam drsg every 3 days and prn. Cleanse wounds L heel with Saline. Apply Therahoney. Apply Cavilon Skin Barrier periwound.Cover with Abd Pad. Wrap with Kerlix every 3days and prn. Cleanse wounds L st,4th and 5th metatarsals with Saline weave dry gauze between toes Daily and prn. Apply Cavilon Skin Barrier to DTPI L foot. Cover with Abd Pad. Wrap with Kerlix every 3 days and prn. Apply Cavilon Skin Barrier to R heel. Cover with Optifoam drsg. Change every 7 days and prn. Apply Antifungal Powder to Clean,Dry Skin in abdominal folds, R and L groin with ABD pads in skin folds Twice Daily. Air Fluidized Mattress. Reposition at least every 2hours or as tolerated. Place pillow between knees. Off-load heels with Pillow. (2) Cellulitis Assessment & Plan: Abx as per ID wounds will need care while in hospital with good care on d/c as not well kept Bone marrow signal is normal and preserved throughout the calcaneus. There is some absence of subcutaneous fat posterior to the calcaneus consistent with a given history of chronic ulceration in this location. There is also generalized subcutaneous edema involving the ankle specially on the lateral side. There is no evidence of an abnormal fluid collection. There are multiple periventricular cystic foci mainly in the subchondral bone within several intertarsal joints. There is a trace amount of fluid in the retrocalcaneal bursa. The Achilles tendon and plantar aponeurosis appear unremarkable. No evidence of acute osteomyelitis. Multiple cystic periarticular signal abnormalities, at least one of which is visible by plain x-ray involving the first interphalangeal joint. Consider gout or other inflammatory arthropathies. Differential includes subchondral geodes. RIGHT LEG: Common femoral artery waveform analysis is within normal limits at rest. Color flow duplex sonography reveals calcification throughout the superficial femoral artery. A mild (40-50%) stenosis is seen in the superficial femoral artery. There is no evidence of occlusion within this segment. The popliteal artery is patent. The tibioperoneal trunk was not well visualized. The distal posterior and dorsalis pedis arteries are also calcified. The Doppler tibial artery waveform analysis is compatible with moderate ischemia at rest. Doppler tibial artery waveform analysis is compatible with moderate ischemia at rest. LEFT LEG: Common femoral artery waveform analysis is within normal limits at rest. Color flow duplex sonography reveals calcification throughout the superficial femoral artery. A mild (40-50%) stenosis is seen in the superficial femoral artery. There is no evidence of occlusion within this segment. The popliteal artery is patent. The tibioperoneal trunk was not well visualized. The distal posterior and dorsalis pedis arteries are also calcified. The Doppler tibial artery waveform analysis is compatible with moderate ischemia at rest. Doppler tibial artery waveform analysis is compatible with moderate to severe ischemia at rest. multiple and in different areas needs aggressive care nutritional support will follow with recs thank you Lakhwinder Dai Jan 23, 2019 13:21
[2019-01-23 16:00] VITALS: BP 122/78
[2019-01-23] MEDS: Vancomycin 1 GM in NS 275 ML IVPB SCH (16:29)
[2019-01-23 20:00] VITALS: BP 138/77
[2019-01-23] MEDS: Iron Sucrose 100 MG in NS 55 ML IV SCH (21:41)
--- NOTE | 2019-01-23 22:15 | Progress Note ---
DATE: 01/23/2019 CARDIOLOGY PROGRESS NOTE SUBJECTIVE: Status unchanged. No complaints. MRI noted with no signs of osteomyelitis. Pain continues. OBJECTIVE: VITAL SIGNS: Blood pressure 128/68, heart rate 96, and respiratory rate 19. LUNGS: With few rhonchi. CARDIAC: Regular. Normal S1 and S2. ABDOMEN: Soft. EXTREMITIES: No edema. IMPRESSION: Slow progress. PLAN: 1. Continue current care. 2. Medication regimen reviewed. 3. Discharge planning to senior living facility. James Archibald M.D. DR: Maryuri JOB#: [id number] CC:
[2019-01-24] VITALS: BP 176/93
[2019-01-24] MEDS: Albuterol/Ipratropium 3ml neb HHN SCH ×4 (01:22→20:03)
[2019-01-24 04:00] VITALS: BP 158/74
[2019-01-24] MEDS: Heparin 5000 units/ml inj SUBQ SCH ×3 (06:02→21:30)
[2019-01-24 08:00] VITALS: BP 118/52
[2019-01-24] MEDS: Docusate 100mg cap ORAL SCH ×2 (08:14→17:45)
[2019-01-24] MEDS: Aspirin Baby 81mg ORAL SCH (08:15)
[2019-01-24] MEDS: Lisinopril 20mg tab ORAL SCH (08:15)
--- NOTE | 2019-01-24 09:54 | Pulmonology Progress Note ---
Assessment/Plan Assessment/Plan IMPRESSION: 1. Multiple pressure wounds. 2. UTI. 3. No evidence of pneumonia. 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 Currently, she is normoxemic. Continue antibiotics per ID. Jus Patel M.D. Subjective Interval Events: None new reported Constitutional: Reports: no symptoms HEENT: Repors: no symptoms Respiratory: Reports: no symptoms Cardiovascular: Reports: no symptoms Gastrointestinal/Abdominal: Reports: no symptoms Allergies: Coded Allergies: PENICILLINS (Verified Allergy, Mild, 04/21/10) Uncoded Allergies: SEAFOOD (Allergy, Mild, 04/21/10) Objective Last 24 Hour Vital Signs Date Time Temp Pulse Resp B/P (MAP) Pulse Ox O2 Delivery O2 Flow Rate FiO2 01/24/19 09:00 Room Air 01/24/19 08:15 118/52 01/24/19 08:00 97.9 98 22 118/52 (74) 96 01/24/19 06:03 93 01/24/19 04:00 97.8 112 20 158/74 (102) 97 01/24/19 01:37 176/93 01/24/19 01:22 84 18 98 Room Air 21 81 18 95 01/24/19 00:00 97.3 103 18 176/93 (120) 97 01/23/19 21:00 Room Air 01/23/19 20:15 82 20 99 Room Air 21 86 18 94 01/23/19 20:00 97.8 90 18 138/77 (97) 98 01/23/19 16:00 98.0 82 18 122/78 (93) 99 01/23/19 12:46 79 20 100 Room Air 21 76 18 96 01/23/19 12:00 97.4 86 19 119/96 (104) 99 Intake and Output 01/23/19 01/24/19 18:59 06:59 Intake Total 1466.666 ml 1700 ml Output Total 600 ml 500 ml Balance 866.666 ml 1200 ml Intake Oral 1100 ml 1100 ml IV Total 366.666 ml Other 600 ml Output Urine Total 600 ml 500 ml General Appearance: no acute distress HEENT: normocephalic Respiratory/Chest: chest wall non-tender Cardiovascular: normal peripheral pulses Microbiology Date/Time Source Procedure Growth Status 01/21/19 22:30 Nasal Nares MRSA Culture - 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 Complete Laboratory Tests 01/23/19 15:20: Vancomycin Level Trough 13.2H Current Medications Medications (Trade) Dose Ordered Sig/Marge Route PRN Reason Start Time Stop Time Status Last Admin Dose Admin Acetaminophen (Tylenol) 650 mg Q6H PRN ORAL Mild Pain/Temp > 100.5 01/21/19 13:00 02/20/19 12:59 01/22/19 17:46 Albuterol/ Ipratropium (Albuterol/ Ipratropium) 3 ml Q6HRT HHN 01/21/19 01:00 01/26/19 00:59 01/24/19 01:22 Aspirin (ASA) 81 mg DAILY ORAL 01/21/19 09:00 02/20/19 08:59 01/24/19 08:15 Clonidine HCl (Catapres Tab) 0.1 mg Q4H PRN ORAL For High Blood Pressure 01/24/19 01:45 02/23/19 01:44 01/24/19 01:37 Clopidogrel Bisulfate (Plavix) 75 mg DAILY ORAL 01/21/19 09:00 02/20/19 08:59 01/24/19 08:14 Docusate Sodium (Colace) 100 mg TWICE A DAY ORAL 01/21/19 18:00 02/20/19 17:59 01/24/19 08:14 Folic Acid (Folate) 1 mg DAILY ORAL 01/22/19 09:00 02/21/19 08:59 01/24/19 08:15 Heparin Sodium (Porcine) (Heparin 5000 units/ml) 5,000 units EVERY 8 HOURS SUBQ 01/21/19 06:00 02/20/19 05:59 01/24/19 06:02 Iron Sucrose 100 mg/Sodium Chloride 60 ml @ 240 mls/hr BEDTIME IV 01/22/19 21:00 01/26/19 21:14 01/23/19 21:41 Lisinopril (Prinivil) 20 mg DAILY ORAL 01/21/19 09:00 02/20/19 08:59 01/24/19 08:15 Lorazepam (Ativan) 1 mg Q6H PRN ORAL For Anxiety 01/21/19 23:30 01/28/19 23:29 Mirtazapine (Remeron) 7.5 mg BEDTIME ORAL 01/22/19 21:00 02/21/19 20:59 01/23/19 21:39 Vancomycin HCl (Vanco rx to dose) 1 ea DAILY PRN MISC Per rx protocol 01/20/19 22:00 02/19/19 21:59 Vancomycin HCl 1 gm/Sodium Chloride 275 ml @ 183.333 mls/hr 1600 IVPB 01/21/19 16:00 01/26/19 15:59 01/23/19 16:29 Jus Patel MD Jan 24, 2019 09:54
--- NOTE | 2019-01-24 10:39 | General Progress Note ---
Assessment/Plan Problem List: (1) CVA (cerebral vascular accident) ICD Codes: I63.9 - Cerebral infarction, unspecified SNOMED: 029630994 (2) Anemia ICD Codes: D64.9 - Anemia, unspecified SNOMED: 389510203 (3) UTI (urinary tract infection) ICD Codes: N39.0 - Urinary tract infection, site not specified SNOMED: 35249630 (4) Foot ulcer ICD Codes: L97.509 - Non-pressure chronic ulcer of other part of unspecified foot with unspecified severity SNOMED: 73479171 (5) Pneumonia ICD Codes: J18.9 - Pneumonia, unspecified organism SNOMED: 439037336 (6) Cellulitis ICD Codes: L03.90 - Cellulitis, unspecified SNOMED: 301019942 (7) Pedal edema ICD Codes: R60.0 - Localized edema SNOMED: 146294547 (8) Chronic deep vein thrombosis (DVT) ICD Codes: I82.509 - Chronic embolism and thrombosis of unspecified deep veins of unspecified lower extremity SNOMED: 48553537732964230 Status: stable, progressing Assessment/Plan: cont wound care air mattress turn q2 heel protectors iv abx per if monitor h/h antiplt rx- watch for bleeding check stool ob Subjective Constitutional: Reports: malaise, weakness HEENT: Reports: no symptoms Cardiovascular: Reports: no symptoms Respiratory: Reports: cough Gastrointestinal/Abdominal: Reports: no symptoms Genitourinary: Reports: no symptoms Neurologic/Psychiatric: Reports: pre-existing deficit Endocrine: Reports: no symptoms Hematologic/Lymphatic: Reports: anemia Allergies: Coded Allergies: PENICILLINS (Verified Allergy, Mild, 04/21/10) Uncoded Allergies: SEAFOOD (Allergy, Mild, 04/21/10) All Systems: reviewed and negative except above Subjective no events. no new complaints. no cp/sob. no fevers or chills. on iv abx. Objective Last 24 Hour Vital Signs Date Time Temp Pulse Resp B/P (MAP) Pulse Ox O2 Delivery O2 Flow Rate FiO2 01/24/19 09:00 Room Air 01/24/19 08:15 118/52 01/24/19 08:00 97.9 98 22 118/52 (74) 96 01/24/19 06:03 93 01/24/19 04:00 97.8 112 20 158/74 (102) 97 01/24/19 01:37 176/93 01/24/19 01:22 84 18 98 Room Air 21 81 18 95 01/24/19 00:00 97.3 103 18 176/93 (120) 97 01/23/19 21:00 Room Air 01/23/19 20:15 82 20 99 Room Air 21 86 18 94 01/23/19 20:00 97.8 90 18 138/77 (97) 98 01/23/19 16:00 98.0 82 18 122/78 (93) 99 01/23/19 12:46 79 20 100 Room Air 21 76 18 96 01/23/19 12:00 97.4 86 19 119/96 (104) 99 Intake and Output 01/23/19 01/24/19 18:59 06:59 Intake Total 1466.666 ml 1700 ml Output Total 600 ml 500 ml Balance 866.666 ml 1200 ml Intake Oral 1100 ml 1100 ml IV Total 366.666 ml Other 600 ml Output Urine Total 600 ml 500 ml Laboratory Tests 01/23/19 15:20: Vancomycin Level Trough 13.2H Height (Feet): 5 Height (Inches): 5.00 Weight (Pounds): 164 Objective General Appearance: alert Neck: supple Cardiovascular: normal rate, regular rhythm Respiratory/Chest: chest wall non-tender, lungs clear, normal breath sounds, no respiratory distress, no accessory muscle use Abdomen: normal bowel sounds, non tender, soft, no organomegaly Edema: no edema noted Arm (L), no edema noted Arm (R), no edema noted Leg (L), no edema noted Leg (R), no edema noted Pedal (L), no edema noted Pedal (R), no edema noted Generalized Neurologic: 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
[2019-01-24 12:00] VITALS: BP 134/59
--- NOTE | 2019-01-24 12:26 | Surgery Progress Note ---
Surgery Progress Note Subjective Additional Comments no acute events comfortable stable no complaints Objective Last 24 Hour Vital Signs Date Time Temp Pulse Resp B/P (MAP) Pulse Ox O2 Delivery O2 Flow Rate FiO2 01/24/19 12:00 98.5 87 20 134/59 (84) 98 01/24/19 09:00 Room Air 01/24/19 08:15 118/52 01/24/19 08:00 97.9 98 22 118/52 (74) 96 01/24/19 06:03 93 01/24/19 04:00 97.8 112 20 158/74 (102) 97 01/24/19 01:37 176/93 01/24/19 01:22 84 18 98 Room Air 21 81 18 95 01/24/19 00:00 97.3 103 18 176/93 (120) 97 01/23/19 21:00 Room Air 01/23/19 20:15 82 20 99 Room Air 21 86 18 94 01/23/19 20:00 97.8 90 18 138/77 (97) 98 01/23/19 16:00 98.0 82 18 122/78 (93) 99 01/23/19 12:46 79 20 100 Room Air 21 76 18 96 I&O Intake and Output 01/23/19 01/24/19 18:59 06:59 Intake Total 1466.666 ml 1700 ml Output Total 600 ml 500 ml Balance 866.666 ml 1200 ml Intake Oral 1100 ml 1100 ml IV Total 366.666 ml Other 600 ml Output Urine Total 600 ml 500 ml Dressing: other Wound: other Drains: other Cardiovascular: RSR Respiratory: clear, decreased breath sounds Abdomen: soft, present bowel sounds Extremities: no cyanosis, other Laboratory Tests Test 01/23/19 15:20 Vancomycin Level Trough 13.2 ug/mL (5.0-12.0) H Plan Problems: (1) Foot ulcer Assessment & Plan: Pt presented on admission grossly unkempt with multiple pressure injuries. Moisture intertrigo noted to abdominal folds,R and L groin. Skin folds erythematous ,grossly denuded and malodorous. Dry scab noted to L knee which pt stated was from fall in her home. Full thickness stage 3 pressure injury upper/outer R buttocks. Base of wound 75 % necrotic,25% viable with surrounding dark borders. Small amt seropurulent exudate. No odor noted.(L)10.5cm x (W)5.8cm. Open DTPI upper/inner aspect R buttocks. Base of wound black and fluctuant,10% viable.(L)1.5cm x (W)2.7cm. Full thickness stage 3 pressure injury sacrococcygeal area Base of wound is maroon, with multiple small open wounds with slough that are within base of wound.Small amt sanguineous exudate noted. Pt complained of pain when minimally palpated.(L)4.5cm x (W)2.7cm.Periwound macerated with non-blanching erythema. Full thickness stage 3 pressure injury with undermining L ischium. Scattered slough at base of wound. Mild odor noted. Small amt purulent exudate noted. Borders are erythematous and macerated.Mild odor noted.(L)7cm x (W)10.5cmx (D) 1.1cm,undermining clockwise 1-6 by 3.2cm @3o'clock. Full thickness stage 3 pressure injury noted to upper lateral/posterior R thigh. Base of wound is 90% necrotic with surrounding slough. erythematous borders. (L)1cm x (W)2.7cm. Full thickness stage 3 ulcer plantar R foot. Base of wound 25% necrotic,75% fibrinous slough. borers are macerated . Small amt. londono coloured exudate noted. Wound is malodorous.(L)1.5cm x (W)3.5cm. Large blood filled blister noted to lateral/plantar L foot (L)7.5cm x (W)8.3cm. Full thickness stage 3 ulcer noted to L 1st metatarsal head (L)0.8cm x (W) 0.5cm. Small amt sanguineous exudate noted. Moist peeling skin periwound. Small ulcers noted to L 4th and 5th metatarsals. Each wound noted to have small amt sanguineous exudate. Full thickness stage 3 ulcer noted L heel. Base of wound 40% necrotic, with scattered slough. Borders macerated and erythematous. Small amt. malodorous londono coloured exudate.(L)6.5cm x (W)8.8cm. R heel boggy with non-blanching erythema. Tx.Plan: Cleanse wounds Buttocks with Saline. Apply Therahoney to each wound. Apply Moisture Barrier Paste periwound. Cover each wound with Optifoam drsgs.Change every 3 days and prn. Cleanse wound L ischium with Saline. Loosely pack with Therahoney impregnated Kerlix Gauze. Apply Moisture Barrier Paste periwound. Cover with Optifoam drsg. Change every 3 days and prn. Cleanse wound posterior upper L thigh with Saline. Apply TheraHoney. Apply Cavilon Skin Barrier periwound. Cover with Optifoam drsg every 3 days and prn. Cleanse wounds L heel with Saline. Apply Therahoney. Apply Cavilon Skin Barrier periwound.Cover with Abd Pad. Wrap with Kerlix every 3days and prn. Cleanse wounds L st,4th and 5th metatarsals with Saline weave dry gauze between toes Daily and prn. Apply Cavilon Skin Barrier to DTPI L foot. Cover with Abd Pad. Wrap with Kerlix every 3 days and prn. Apply Cavilon Skin Barrier to R heel. Cover with Optifoam drsg. Change every 7 days and prn. Apply Antifungal Powder to Clean,Dry Skin in abdominal folds, R and L groin with ABD pads in skin folds Twice Daily. Air Fluidized Mattress. Reposition at least every 2hours or as tolerated. Place pillow between knees. Off-load heels with Pillow. (2) Cellulitis Assessment & Plan: Abx as per ID wounds will need care while in hospital with good care on d/c as not well kept Bone marrow signal is normal and preserved throughout the calcaneus. There is some absence of subcutaneous fat posterior to the calcaneus consistent with a given history of chronic ulceration in this location. There is also generalized subcutaneous edema involving the ankle specially on the lateral side. There is no evidence of an abnormal fluid collection. There are multiple periventricular cystic foci mainly in the subchondral bone within several intertarsal joints. There is a trace amount of fluid in the retrocalcaneal bursa. The Achilles tendon and plantar aponeurosis appear unremarkable. No evidence of acute osteomyelitis. Multiple cystic periarticular signal abnormalities, at least one of which is visible by plain x-ray involving the first interphalangeal joint. Consider gout or other inflammatory arthropathies. Differential includes subchondral geodes. RIGHT LEG: Common femoral artery waveform analysis is within normal limits at rest. Color flow duplex sonography reveals calcification throughout the superficial femoral artery. A mild (40-50%) stenosis is seen in the superficial femoral artery. There is no evidence of occlusion within this segment. The popliteal artery is patent. The tibioperoneal trunk was not well visualized. The distal posterior and dorsalis pedis arteries are also calcified. The Doppler tibial artery waveform analysis is compatible with moderate ischemia at rest. Doppler tibial artery waveform analysis is compatible with moderate ischemia at rest. LEFT LEG: Common femoral artery waveform analysis is within normal limits at rest. Color flow duplex sonography reveals calcification throughout the superficial femoral artery. A mild (40-50%) stenosis is seen in the superficial femoral artery. There is no evidence of occlusion within this segment. The popliteal artery is patent. The tibioperoneal trunk was not well visualized. The distal posterior and dorsalis pedis arteries are also calcified. The Doppler tibial artery waveform analysis is compatible with moderate ischemia at rest. Doppler tibial artery waveform analysis is compatible with moderate to severe ischemia at rest. multiple and in different areas needs aggressive care nutritional support will follow with recs thank you Lakhwinder Dai Jan 24, 2019 12:26
--- NOTE | 2019-01-24 13:27 | Infectious Diseases Prog Note ---
Assessment/Plan Assessment/Plan A 1. Enterococcus UTI 2. left foot ulcers, MRI negative for osteomyelitis 3. CVA 4. Chronic DVT of left leg P 1. continue iv vancomycin 2. will follow up cultures Subjective ROS Limited/Unobtainable: No Constitutional: Reports: no symptoms Respiratory: Reports: no symptoms Cardiovascular: Reports: no symptoms Gastrointestinal/Abdominal: Reports: no symptoms Musculoskeletal: Reports: pain, other - in heels Allergies: Coded Allergies: PENICILLINS (Verified Allergy, Mild, 04/21/10) Uncoded Allergies: SEAFOOD (Allergy, Mild, 04/21/10) Objective Vital Signs Last 24 Hour Vital Signs Date Time Temp Pulse Resp B/P (MAP) Pulse Ox O2 Delivery O2 Flow Rate FiO2 01/24/19 12:00 98.5 87 20 134/59 (84) 98 01/24/19 09:00 Room Air 01/24/19 08:15 118/52 01/24/19 08:00 97.9 98 22 118/52 (74) 96 01/24/19 06:03 93 01/24/19 04:00 97.8 112 20 158/74 (102) 97 01/24/19 01:37 176/93 01/24/19 01:22 84 18 98 Room Air 21 81 18 95 01/24/19 00:00 97.3 103 18 176/93 (120) 97 01/23/19 21:00 Room Air 01/23/19 20:15 82 20 99 Room Air 21 86 18 94 01/23/19 20:00 97.8 90 18 138/77 (97) 98 01/23/19 16:00 98.0 82 18 122/78 (93) 99 Height (Feet): 5 Height (Inches): 5.00 Weight (Pounds): 164 General Appearance: no acute distress HEENT: other - right eye blindness, 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 Complete Laboratory Tests Test 01/23/19 15:20 Vancomycin Level Trough 13.2 ug/mL (5.0-12.0) H Current Medications Medications (Trade) Dose Ordered Sig/Marge Route PRN Reason Start Time Stop Time Status Last Admin Dose Admin Acetaminophen (Tylenol) 650 mg Q6H PRN ORAL Mild Pain/Temp > 100.5 01/21/19 13:00 02/20/19 12:59 01/22/19 17:46 Albuterol/ Ipratropium (Albuterol/ Ipratropium) 3 ml Q6HRT HHN 01/21/19 01:00 01/26/19 00:59 01/24/19 01:22 Aspirin (ASA) 81 mg DAILY ORAL 01/21/19 09:00 02/20/19 08:59 01/24/19 08:15 Clonidine HCl (Catapres Tab) 0.1 mg Q4H PRN ORAL For High Blood Pressure 01/24/19 01:45 02/23/19 01:44 01/24/19 01:37 Clopidogrel Bisulfate (Plavix) 75 mg DAILY ORAL 01/21/19 09:00 02/20/19 08:59 01/24/19 08:14 Docusate Sodium (Colace) 100 mg TWICE A DAY ORAL 01/21/19 18:00 02/20/19 17:59 01/24/19 08:14 Folic Acid (Folate) 1 mg DAILY ORAL 01/22/19 09:00 02/21/19 08:59 01/24/19 08:15 Heparin Sodium (Porcine) (Heparin 5000 units/ml) 5,000 units EVERY 8 HOURS SUBQ 01/21/19 06:00 02/20/19 05:59 01/24/19 06:02 Iron Sucrose 100 mg/Sodium Chloride 60 ml @ 240 mls/hr BEDTIME IV 01/22/19 21:00 01/26/19 21:14 01/23/19 21:41 Lisinopril (Prinivil) 20 mg DAILY ORAL 01/21/19 09:00 02/20/19 08:59 01/24/19 08:15 Lorazepam (Ativan) 1 mg Q6H PRN ORAL For Anxiety 01/21/19 23:30 01/28/19 23:29 Mirtazapine (Remeron) 7.5 mg BEDTIME ORAL 01/22/19 21:00 02/21/19 20:59 01/23/19 21:39 Vancomycin HCl (Vanco rx to dose) 1 ea DAILY PRN MISC Per rx protocol 01/20/19 22:00 02/19/19 21:59 Vancomycin HCl 1 gm/Sodium Chloride 275 ml @ 183.333 mls/hr 1600 IVPB 01/21/19 16:00 01/26/19 15:59 01/23/19 16:29 Shady Reyes MD Jan 24, 2019 13:27
[2019-01-24] MEDS: Vancomycin 1 GM in NS 275 ML IVPB SCH (15:24)
[2019-01-24 16:00] VITALS: BP 130/62
[2019-01-24 20:00] VITALS: BP 131/60
[2019-01-24] MEDS: Iron Sucrose 100 MG in NS 55 ML IV SCH (21:17)
--- NOTE | 2019-01-24 22:15 | Progress Note ---
DATE: 01/24/2019 CARDIOLOGY PROGRESS NOTE SUBJECTIVE: The patient had elevated blood pressure last night, p.r.n. therapy was administered. Her blood pressure has improved today. She has occasional pain of her legs. No shortness of breath. PHYSICAL EXAMINATION: VITAL SIGNS: Blood pressure 118/52, pulse 98, respiratory rate 22, afebrile. LUNGS: Diminished breath sounds. No wheezing. HEART: Regular rhythm and rate. Normal S1, S2 with a fourth heart sound. ABDOMEN: Soft. EXTREMITIES: No edema. Multiple wounds with dressing in place. Capillary refill has decreased. LABORATORY DATA: Labs from January 23, 2019 were reviewed . IMPRESSION: 1. Multiple pressure wounds of the lower extremities and cellulitis. 2. Peripheral artery disease. 3. Severe protein-calorie malnutrition. 4. Folic-acid deficiency. 5. Urinary tract infection. 6. Acute on chronic diastolic congestive heart failure. 7. Anemia, multifactorial. 8. Hypertensive heart disease with episodes of labile hypertension. PLAN: 1. Wound care. 2. Antimicrobials. 3. Titrate antihypertensives. 4. DVT prophylaxis. 5. Anti-platelet therapy. 6. [facility]charge planning to [facility]. 7. Vitamin supplementation. James Archibald M.D. DR: Celia JOB#: [id number] CC:
[2019-01-25] VITALS (9 sets, daily range): BP systolic 118–148; BP diastolic 51–88
[2019-01-25] MEDS: Albuterol/Ipratropium 3ml neb HHN SCH ×4 (00:49→19:49)
[2019-01-25] MEDS: Heparin 5000 units/ml inj SUBQ SCH ×3 (05:54→21:40)
[2019-01-25 07:32] LABS: HEMATOCRIT 20.1 % (37.0-47.0); MEAN CORPUSCULAR VOLUME 91 FL (80-99); PLATELET COUNT 259 K/UL (150-450); RED BLOOD COUNT 2.21 M/UL (4.20-5.40); RED CELL DISTRIBUTION WIDTH 15.2 % (11.6-14.8); WHITE BLOOD COUNT 12.6 K/UL (4.8-10.8)
[2019-01-25 07:48] LABS: HEMOGLOBIN 6.8 G/DL (12.0-16.0)
--- NOTE | 2019-01-25 08:09 | General Progress Note ---
Assessment/Plan Problem List: (1) CVA (cerebral vascular accident) ICD Codes: I63.9 - Cerebral infarction, unspecified SNOMED: 174770772 (2) Anemia ICD Codes: D64.9 - Anemia, unspecified SNOMED: 365382011 (3) UTI (urinary tract infection) ICD Codes: N39.0 - Urinary tract infection, site not specified SNOMED: 49126689 (4) Foot ulcer ICD Codes: L97.509 - Non-pressure chronic ulcer of other part of unspecified foot with unspecified severity SNOMED: 59479318 (5) Pneumonia ICD Codes: J18.9 - Pneumonia, unspecified organism SNOMED: 136896600 (6) Cellulitis ICD Codes: L03.90 - Cellulitis, unspecified SNOMED: 194798283 (7) Pedal edema ICD Codes: R60.0 - Localized edema SNOMED: 870713890 (8) Chronic deep vein thrombosis (DVT) ICD Codes: I82.509 - Chronic embolism and thrombosis of unspecified deep veins of unspecified lower extremity SNOMED: 42340238494513220 Status: stable, progressing Assessment/Plan: transfuse cont wound care air mattress turn q2 heel protectors iv abx per if monitor h/h antiplt rx- watch for bleeding check stool ob Subjective ROS Limited/Unobtainable: No Constitutional: Reports: malaise, weakness HEENT: Reports: no symptoms Cardiovascular: Reports: no symptoms Respiratory: Reports: no symptoms Gastrointestinal/Abdominal: Reports: no symptoms Genitourinary: Reports: no symptoms Neurologic/Psychiatric: Reports: no symptoms Endocrine: Reports: no symptoms Hematologic/Lymphatic: Reports: anemia Allergies: Coded Allergies: PENICILLINS (Verified Allergy, Mild, 04/21/10) Uncoded Allergies: SEAFOOD (Allergy, Mild, 04/21/10) All Systems: reviewed and negative except above Subjective no events. no new complaints. no cp/sob. no fevers or chills. on iv abx. decrease h/h noted. no bleeding Objective Last 24 Hour Vital Signs Date Time Temp Pulse Resp B/P (MAP) Pulse Ox O2 Delivery O2 Flow Rate FiO2 01/25/19 07:39 86 16 98 Room Air 21 84 16 97 01/25/19 04:00 98.3 94 18 148/73 (98) 100 01/25/19 00:00 98.2 93 18 126/53 (77) 99 01/24/19 20:13 90 18 99 Room Air 21 01/24/19 20:08 Room Air 01/24/19 20:03 88 18 97 Room Air 21 01/24/19 20:00 99.5 71 18 131/60 (83) 95 01/24/19 16:00 98.7 84 18 130/62 (84) 99 01/24/19 12:00 98.5 87 20 134/59 (84) 98 01/24/19 09:00 Room Air 01/24/19 08:15 118/52 Intake and Output 01/24/19 01/25/19 19:00 07:00 Intake Total 1346.666 ml Output Total 600 ml 450 ml Balance 746.666 ml -450 ml Intake Oral 980 ml IV Total 366.666 ml Output Urine Total 600 ml 450 ml # Bowel Movements 1 Laboratory Tests 01/24/19 21:54: Stool Occult Blood [Pending] 01/25/19 06:25: White Blood Count 12.6H, Red Blood Count 2.21L, Hemoglobin 6.8*L, Hematocrit 20.1L, Mean Corpuscular Volume 91, Mean Corpuscular Hemoglobin 30.8, Mean Corpuscular Hemoglobin Concent 33.8, Red Cell Distribution Width 15.2H, Platelet Count 259, Mean Platelet Volume 5.0L, Neutrophils (%) (Auto) , Lymphocytes (%) (Auto) , Monocytes (%) (Auto) , Eosinophils (%) (Auto) , Basophils (%) (Auto) , Neutrophils % (Manual) [Pending], Lymphocytes % (Manual) [Pending], Platelet Estimate [Pending], Platelet Morphology [Pending], Sodium Level [Pending], Potassium Level [Pending], Chloride Level [Pending], Carbon Dioxide Level [Pending], Blood Urea Nitrogen [Pending], Creatinine [Pending], Estimat Glomerular Filtration Rate [Pending], Glucose Level [Pending], Calcium Level [Pending], Magnesium Level [Pending], Total Bilirubin [Pending], Aspartate Amino Transf (AST/SGOT) [Pending], Alanine Aminotransferase (ALT/SGPT ) [Pending], Alkaline Phosphatase [Pending], Pro-B-Type Natriuretic Peptide [ Pending], Total Protein [Pending], Albumin [Pending], Globulin [Pending] Height (Feet): 5 Height (Inches): 5.00 Weight (Pounds): 164 Objective General Appearance: alert Neck: supple Cardiovascular: normal rate, regular rhythm Respiratory/Chest: chest wall non-tender, lungs clear, normal breath sounds, no respiratory distress, no accessory muscle use Abdomen: normal bowel sounds, non tender, soft, no organomegaly Edema: no edema noted Arm (L), no edema noted Arm (R), no edema noted Leg (L), no edema noted Leg (R), no edema noted Pedal (L), no edema noted Pedal (R), no edema noted Generalized 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
[2019-01-25 08:11] LABS: ALANINE AMINOTRANSFERASE 6 U/L (12-78); ALBUMIN 1.6 G/DL (3.4-5.0); ALBUMIN/GLOBULIN RATIO 0.4 (1.0-2.7); ALKALINE PHOSPHATASE 65 U/L (46-116); ANION GAP 7 mmol/L (5-15); ASPARTATE AMINO TRANSFERASE 14 U/L (15-37); BILIRUBIN,TOTAL 0.3 MG/DL (0.2-1.0); BLOOD UREA NITROGEN 24 mg/dL (7-18); CALCIUM 7.6 MG/DL (8.5-10.1); CARBON DIOXIDE 25 MMOL/L (21-32); CHLORIDE 109 MMOL/L (98-107); CREATININE 0.7 MG/DL (0.55-1.30); POTASSIUM 3.7 MMOL/L (3.5-5.1); SODIUM 140 MMOL/L (136-145)
[2019-01-25] MEDS: Aspirin Baby 81mg ORAL SCH (08:42)
[2019-01-25] MEDS: Docusate 100mg cap ORAL SCH ×2 (08:42→17:26)
[2019-01-25] MEDS: Lisinopril 20mg tab ORAL SCH (08:43)
--- NOTE | 2019-01-25 10:05 | Pulmonology Progress Note ---
Assessment/Plan Assessment/Plan IMPRESSION: 1. Multiple pressure wounds. 2. UTI. 3. No evidence of pneumonia. 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 Currently, she is normoxemic. Continue antibiotics per ID. Jus Patel M.D. Subjective Interval Events: None new Constitutional: Reports: no symptoms HEENT: Repors: no symptoms Respiratory: Reports: no symptoms Cardiovascular: Reports: no symptoms Allergies: Coded Allergies: PENICILLINS (Verified Allergy, Mild, 04/21/10) Uncoded Allergies: SEAFOOD (Allergy, Mild, 04/21/10) Objective Last 24 Hour Vital Signs Date Time Temp Pulse Resp B/P (MAP) Pulse Ox O2 Delivery O2 Flow Rate FiO2 01/25/19 08:43 131/67 01/25/19 08:00 98.8 108 20 131/67 (88) 97 01/25/19 07:39 86 16 98 Room Air 21 84 16 97 01/25/19 04:00 98.3 94 18 148/73 (98) 100 01/25/19 00:00 98.2 93 18 126/53 (77) 99 01/24/19 20:13 90 18 99 Room Air 21 01/24/19 20:08 Room Air 01/24/19 20:03 88 18 97 Room Air 21 01/24/19 20:00 99.5 71 18 131/60 (83) 95 01/24/19 16:00 98.7 84 18 130/62 (84) 99 01/24/19 12:00 98.5 87 20 134/59 (84) 98 Intake and Output 01/24/19 01/25/19 18:59 06:59 Intake Total 1346.666 ml Output Total 600 ml 450 ml Balance 746.666 ml -450 ml Intake Oral 980 ml IV Total 366.666 ml Output Urine Total 600 ml 450 ml # Bowel Movements 1 General Appearance: no acute distress HEENT: normocephalic Respiratory/Chest: chest wall non-tender Cardiovascular: normal peripheral pulses Laboratory Tests 01/24/19 21:54: Stool Occult Blood [Pending] 01/25/19 06:25: White Blood Count 12.6H, Red Blood Count 2.21L, Hemoglobin 6.8*L, Hematocrit 20.1L, Mean Corpuscular Volume 91, Mean Corpuscular Hemoglobin 30.8, Mean Corpuscular Hemoglobin Concent 33.8, Red Cell Distribution Width 15.2H, Platelet Count 259, Mean Platelet Volume 5.0L, Neutrophils (%) (Auto) , Lymphocytes (%) (Auto) , Monocytes (%) (Auto) , Eosinophils (%) (Auto) , Basophils (%) (Auto) , Differential Total Cells Counted 100, Neutrophils % ( Manual) 72, Lymphocytes % (Manual) 19L, Monocytes % (Manual) 4, Eosinophils % ( Manual) 5H, Basophils % (Manual) 0, Band Neutrophils 0, Platelet Estimate Adequate, Platelet Morphology Normal, Hypochromasia 1+, Anisocytosis 1+, Sodium Level 140, Potassium Level 3.7, Chloride Level 109H, Carbon Dioxide Level 25, Anion Gap 7, Blood Urea Nitrogen 24H, Creatinine 0.7, Estimat Glomerular Filtration Rate , Glucose Level 92, Calcium Level 7.6L, Magnesium Level 1.6L, Total Bilirubin 0.3, Aspartate Amino Transf (AST/SGOT) 14L, Alanine Aminotransferase (ALT/SGPT) 6L, Alkaline Phosphatase 65, Pro-B-Type Natriuretic Peptide 2271H, Total Protein 5.4L, Albumin 1.6L, Globulin 3.8, Albumin/Globulin Ratio 0.4L Current Medications Medications (Trade) Dose Ordered Sig/Marge Route PRN Reason Start Time Stop Time Status Last Admin Dose Admin Acetaminophen (Tylenol) 650 mg Q6H PRN ORAL Mild Pain/Temp > 100.5 01/21/19 13:00 02/20/19 12:59 01/22/19 17:46 Albuterol/ Ipratropium (Albuterol/ Ipratropium) 3 ml Q6HRT HHN 01/21/19 01:00 01/26/19 00:59 01/25/19 07:00 Aspirin (ASA) 81 mg DAILY ORAL 01/21/19 09:00 02/20/19 08:59 01/25/19 08:42 Clonidine HCl (Catapres Tab) 0.1 mg Q4H PRN ORAL For High Blood Pressure 01/24/19 01:45 02/23/19 01:44 01/24/19 01:37 Clopidogrel Bisulfate (Plavix) 75 mg DAILY ORAL 01/21/19 09:00 02/20/19 08:59 01/25/19 08:42 Docusate Sodium (Colace) 100 mg TWICE A DAY ORAL 01/21/19 18:00 02/20/19 17:59 01/25/19 08:42 Folic Acid (Folate) 1 mg DAILY ORAL 01/22/19 09:00 02/21/19 08:59 01/25/19 08:43 Heparin Sodium (Porcine) (Heparin 5000 units/ml) 5,000 units EVERY 8 HOURS SUBQ 01/21/19 06:00 02/20/19 05:59 01/25/19 05:54 Iron Sucrose 100 mg/Sodium Chloride 60 ml @ 240 mls/hr BEDTIME IV 01/22/19 21:00 01/26/19 21:14 01/24/19 21:17 Lisinopril (Prinivil) 20 mg DAILY ORAL 01/21/19 09:00 02/20/19 08:59 01/25/19 08:43 Lorazepam (Ativan) 1 mg Q6H PRN ORAL For Anxiety 01/21/19 23:30 01/28/19 23:29 Mirtazapine (Remeron) 7.5 mg BEDTIME ORAL 01/22/19 21:00 02/21/19 20:59 01/24/19 21:17 Vancomycin HCl (Vanco rx to dose) 1 ea DAILY PRN MISC Per rx protocol 01/20/19 22:00 02/19/19 21:59 Vancomycin HCl 1 gm/Sodium Chloride 275 ml @ 183.333 mls/hr 1600 IVPB 01/21/19 16:00 01/26/19 15:59 01/24/19 15:24 Jus Patel MD Jan 25, 2019 10:05
--- NOTE | 2019-01-25 10:40 | Cardiology Report ---
APPROVED REPORT EXAM: Two-dimensional and M-mode echocardiogram with Doppler and color Doppler. INDICATION Congestive Heart Failure M-Mode DIMENSIONS IVSd1.0 (0.7-1.1cm)Left Atrium (MM)4.4 (1.6-4.0cm) LVDd4.8 (3.5-5.6cm)Aortic Root3.4 (2.0-3.7cm) PWd0.4 (0.7-1.1cm)Aortic Cusp Exc.1.9 (1.5-2.0cm) IVSs1.2 cm LVDs2.7 (2.5-4.0cm) PWs0.9 cm Normal left ventricular chamber size, systolic function and wall motion . Left ventricular ejection fraction estimated to be 60 -65%. No evidence of left ventricular hypertrophy. No evidence of pericardial effusion. Mild left atrial enlargement . Right cardiac chamber sizes are within normal limits. Focal aortic valve sclerosis with adequate cusp excursion. Thickened mitral valve leaflets with normal excursion. Mitral annulus and aortic root calcification. Normal pulmonic valve structure. Normal tricuspid valve structure. IVC at normal size with physiologic collapse. A color flow and spectral Doppler study was performed and revealed: No aortic insufficiency. Mild mitral regurgitation. Mitral inflow indicates normal left ventricular diastolic function Trace tricuspid regurgitation. Tricuspid systolic velocities suggests peak right ventricular systolic pressure of 15 mmHg.
--- NOTE | 2019-01-25 11:01 | Infectious Diseases Prog Note ---
Assessment/Plan Assessment/Plan A 1. Enterococcus UTI 2. left foot ulcers, MRI negative for osteomyelitis 3. CVA 4. Chronic DVT of left leg P 1. continue iv vancomycin until tomorrow 2. will follow up cultures Subjective ROS Limited/Unobtainable: No HEENT: Reports: no symptoms Respiratory: Reports: no symptoms Cardiovascular: Reports: no symptoms Gastrointestinal/Abdominal: Reports: no symptoms Genitourinary: Reports: no symptoms Allergies: Coded Allergies: PENICILLINS (Verified Allergy, Mild, 04/21/10) Uncoded Allergies: SEAFOOD (Allergy, Mild, 04/21/10) Objective Vital Signs Last 24 Hour Vital Signs Date Time Temp Pulse Resp B/P (MAP) Pulse Ox O2 Delivery O2 Flow Rate FiO2 01/25/19 09:00 Room Air 01/25/19 08:43 131/67 01/25/19 08:00 98.8 108 20 131/67 (88) 97 01/25/19 07:39 86 16 98 Room Air 21 84 16 97 01/25/19 04:00 98.3 94 18 148/73 (98) 100 01/25/19 00:00 98.2 93 18 126/53 (77) 99 01/24/19 20:13 90 18 99 Room Air 21 01/24/19 20:08 Room Air 01/24/19 20:03 88 18 97 Room Air 21 01/24/19 20:00 99.5 71 18 131/60 (83) 95 01/24/19 16:00 98.7 84 18 130/62 (84) 99 01/24/19 12:00 98.5 87 20 134/59 (84) 98 Height (Feet): 5 Height (Inches): 5.00 Weight (Pounds): 164 General Appearance: no acute distress HEENT: other - R eye blindness Respiratory/Chest: lungs clear Cardiovascular: tachycardia Abdomen: soft, non tender Extremities: other - edema of legs Neurologic/Psychiatric: alert, responsive Laboratory Tests Test 01/24/19 21:54 01/25/19 06:25 Stool Occult Blood Pending White Blood Count 12.6 K/UL (4.8-10.8) H Red Blood Count 2.21 M/UL (4.20-5.40) L Hemoglobin 6.8 G/DL (12.0-16.0) *L Hematocrit 20.1 % (37.0-47.0) L Mean Corpuscular Volume 91 FL (80-99) Mean Corpuscular Hemoglobin 30.8 PG (27.0-31.0) Mean Corpuscular Hemoglobin Concent 33.8 G/DL (32.0-36.0) Red Cell Distribution Width 15.2 % (11.6-14.8) H Platelet Count 259 K/UL (150-450) Mean Platelet Volume 5.0 FL (6.5-10.1) L Neutrophils (%) (Auto) % (45.0-75.0) Lymphocytes (%) (Auto) % (20.0-45.0) Monocytes (%) (Auto) % (1.0-10.0) Eosinophils (%) (Auto) % (0.0-3.0) Basophils (%) (Auto) % (0.0-2.0) Differential Total Cells Counted 100 Neutrophils % (Manual) 72 % (45-75) Lymphocytes % (Manual) 19 % (20-45) L Monocytes % (Manual) 4 % (1-10) Eosinophils % (Manual) 5 % (0-3) H Basophils % (Manual) 0 % (0-2) Band Neutrophils 0 % (0-8) Platelet Estimate Adequate Platelet Morphology Normal Hypochromasia 1+ Anisocytosis 1+ Sodium Level 140 MMOL/L (136-145) Potassium Level 3.7 MMOL/L (3.5-5.1) Chloride Level 109 MMOL/L (98-107) H Carbon Dioxide Level 25 MMOL/L (21-32) Anion Gap 7 mmol/L (5-15) Blood Urea Nitrogen 24 mg/dL (7-18) H Creatinine 0.7 MG/DL (0.55-1.30) Estimat Glomerular Filtration Rate mL/min (>60) Glucose Level 92 MG/DL (74-106) Calcium Level 7.6 MG/DL (8.5-10.1) L Magnesium Level 1.6 MG/DL (1.8-2.4) L Total Bilirubin 0.3 MG/DL (0.2-1.0) Aspartate Amino Transf (AST/SGOT) 14 U/L (15-37) L Alanine Aminotransferase (ALT/SGPT) 6 U/L (12-78) L Alkaline Phosphatase 65 U/L (46-116) Pro-B-Type Natriuretic Peptide 2271 pg/mL (0-125) H Total Protein 5.4 G/DL (6.4-8.2) L Albumin 1.6 G/DL (3.4-5.0) L Globulin 3.8 g/dL Albumin/Globulin Ratio 0.4 (1.0-2.7) L Current Medications Medications (Trade) Dose Ordered Sig/Marge Route PRN Reason Start Time Stop Time Status Last Admin Dose Admin Acetaminophen (Tylenol) 650 mg Q6H PRN ORAL Mild Pain/Temp > 100.5 01/21/19 13:00 02/20/19 12:59 01/22/19 17:46 Albuterol/ Ipratropium (Albuterol/ Ipratropium) 3 ml Q6HRT HHN 01/21/19 01:00 01/26/19 00:59 01/25/19 07:00 Aspirin (ASA) 81 mg DAILY ORAL 01/21/19 09:00 02/20/19 08:59 01/25/19 08:42 Clonidine HCl (Catapres Tab) 0.1 mg Q4H PRN ORAL For High Blood Pressure 01/24/19 01:45 02/23/19 01:44 01/24/19 01:37 Clopidogrel Bisulfate (Plavix) 75 mg DAILY ORAL 01/21/19 09:00 02/20/19 08:59 01/25/19 08:42 Docusate Sodium (Colace) 100 mg TWICE A DAY ORAL 01/21/19 18:00 02/20/19 17:59 01/25/19 08:42 Folic Acid (Folate) 1 mg DAILY ORAL 01/22/19 09:00 02/21/19 08:59 01/25/19 08:43 Heparin Sodium (Porcine) (Heparin 5000 units/ml) 5,000 units EVERY 8 HOURS SUBQ 01/21/19 06:00 02/20/19 05:59 01/25/19 05:54 Iron Sucrose 100 mg/Sodium Chloride 60 ml @ 240 mls/hr BEDTIME IV 01/22/19 21:00 01/26/19 21:14 01/24/19 21:17 Lisinopril (Prinivil) 20 mg DAILY ORAL 01/21/19 09:00 02/20/19 08:59 01/25/19 08:43 Lorazepam (Ativan) 1 mg Q6H PRN ORAL For Anxiety 01/21/19 23:30 01/28/19 23:29 Magnesium Sulfate 100 ml @ 100 mls/hr Q1H IVPB 01/25/19 10:45 01/25/19 12:44 Mirtazapine (Remeron) 7.5 mg BEDTIME ORAL 01/22/19 21:00 02/21/19 20:59 01/24/19 21:17 Vancomycin HCl (Vanco rx to dose) 1 ea DAILY PRN MISC Per rx protocol 01/20/19 22:00 02/19/19 21:59 Vancomycin HCl 1 gm/Sodium Chloride 275 ml @ 183.333 mls/hr 1600 IVPB 01/21/19 16:00 01/26/19 15:59 01/24/19 15:24 Shady Reyes MD Jan 25, 2019 11:01
--- NOTE | 2019-01-25 17:00 | Progress Note ---
DATE: 01/25/2019 CARDIOLOGY PROGRESS NOTE SUBJECTIVE: This patient is weak, withdrawn, but alert. No new distress. OBJECTIVE: VITAL SIGNS: Blood pressure 131/67, pulse 108, respirations 20, and afebrile. LUNGS: Diminished breath sounds. HEART: Regular rhythm and rate. Normal S1, S2. ABDOMEN: Soft. EXTREMITIES: Wound sites with less drainage and erythema. LABORATORY DATA: White count 12.6, hemoglobin 6.8, and platelets 259,000. Stool occult blood is positive. Sodium 140, potassium 3.7, bicarb 25, BUN 24, and creatinine 0.7. Magnesium 1.6. Albumin 1.6. IMPRESSION: 1. Cellulitis and wounds of the lower extremities. 2. Peripheral artery disease. 3. Coronary artery disease. 4. Hypertensive heart disease. 5. Cerebrovascular disease with history of CVA. 6. Hemoccult-positive stool. 7. Anemia due to chronic disease. 8. Anemia due to iron deficiency. 9. Hypomagnesemia. PLAN: 1. Antimicrobials. 2. Skin care. 3. Intravenous iron. 4. Intravenous magnesium. 5. Discontinue aspirin. 6. Continue Plavix. 7. Transfuse 1 unit of packed red blood cells. 8. Should defer gastrointestinal workup unless actively bleeding. 9. Requiring repeated transfusion due to advanced age and comorbidities. James Archibald M.D. DR: KYLIE JOB#: [id number] CC:
[2019-01-25] MEDS: Vancomycin 1 GM in NS 275 ML IVPB SCH (17:59)
--- NOTE | 2019-01-25 18:42 | Surgery Progress Note ---
Surgery Progress Note Subjective Symptoms: improved, pain absent, tolerating diet, passing flatus Objective Last 24 Hour Vital Signs Date Time Temp Pulse Resp B/P (MAP) Pulse Ox O2 Delivery O2 Flow Rate FiO2 01/25/19 16:00 98.2 101 20 139/88 (105) 97 01/25/19 14:20 98.2 100 20 134/83 (100) 95 01/25/19 13:23 78 16 97 Room Air 21 74 18 96 01/25/19 11:30 96.8 115 18 124/60 (81) 01/25/19 11:00 97.7 112 18 118/51 (73) 97 01/25/19 09:00 Room Air 01/25/19 08:43 131/67 01/25/19 08:00 98.8 108 20 131/67 (88) 97 01/25/19 07:39 86 16 98 Room Air 21 84 16 97 01/25/19 04:00 98.3 94 18 148/73 (98) 100 01/25/19 00:00 98.2 93 18 126/53 (77) 99 01/24/19 20:13 90 18 99 Room Air 21 01/24/19 20:08 Room Air 01/24/19 20:03 88 18 97 Room Air 21 01/24/19 20:00 99.5 71 18 131/60 (83) 95 I&O Intake and Output 01/24/19 01/25/19 19:00 07:00 Intake Total 1346.666 ml Output Total 600 ml 450 ml Balance 746.666 ml -450 ml Intake Oral 980 ml IV Total 366.666 ml Output Urine Total 600 ml 450 ml # Bowel Movements 1 Dressing: other Wound: other Drains: other Cardiovascular: RSR Respiratory: clear Abdomen: soft, non-tender, present bowel sounds, non-distended Extremities: edema, no tenderness, no cyanosis Laboratory Tests Test 01/24/19 21:54 01/25/19 06:25 Stool Occult Blood Positive (NEGATIVE) White Blood Count 12.6 K/UL (4.8-10.8) H Red Blood Count 2.21 M/UL (4.20-5.40) L Hemoglobin 6.8 G/DL (12.0-16.0) *L Hematocrit 20.1 % (37.0-47.0) L Mean Corpuscular Volume 91 FL (80-99) Mean Corpuscular Hemoglobin 30.8 PG (27.0-31.0) Mean Corpuscular Hemoglobin Concent 33.8 G/DL (32.0-36.0) Red Cell Distribution Width 15.2 % (11.6-14.8) H Platelet Count 259 K/UL (150-450) Mean Platelet Volume 5.0 FL (6.5-10.1) L Neutrophils (%) (Auto) % (45.0-75.0) Lymphocytes (%) (Auto) % (20.0-45.0) Monocytes (%) (Auto) % (1.0-10.0) Eosinophils (%) (Auto) % (0.0-3.0) Basophils (%) (Auto) % (0.0-2.0) Differential Total Cells Counted 100 Neutrophils % (Manual) 72 % (45-75) Lymphocytes % (Manual) 19 % (20-45) L Monocytes % (Manual) 4 % (1-10) Eosinophils % (Manual) 5 % (0-3) H Basophils % (Manual) 0 % (0-2) Band Neutrophils 0 % (0-8) Platelet Estimate Adequate Platelet Morphology Normal Hypochromasia 1+ Anisocytosis 1+ Sodium Level 140 MMOL/L (136-145) Potassium Level 3.7 MMOL/L (3.5-5.1) Chloride Level 109 MMOL/L (98-107) H Carbon Dioxide Level 25 MMOL/L (21-32) Anion Gap 7 mmol/L (5-15) Blood Urea Nitrogen 24 mg/dL (7-18) H Creatinine 0.7 MG/DL (0.55-1.30) Estimat Glomerular Filtration Rate mL/min (>60) Glucose Level 92 MG/DL (74-106) Calcium Level 7.6 MG/DL (8.5-10.1) L Magnesium Level 1.6 MG/DL (1.8-2.4) L Total Bilirubin 0.3 MG/DL (0.2-1.0) Aspartate Amino Transf (AST/SGOT) 14 U/L (15-37) L Alanine Aminotransferase (ALT/SGPT) 6 U/L (12-78) L Alkaline Phosphatase 65 U/L (46-116) Pro-B-Type Natriuretic Peptide 2271 pg/mL (0-125) H Total Protein 5.4 G/DL (6.4-8.2) L Albumin 1.6 G/DL (3.4-5.0) L Globulin 3.8 g/dL Albumin/Globulin Ratio 0.4 (1.0-2.7) L Plan Problems: (1) Foot ulcer Assessment & Plan: Pt presented on admission grossly unkempt with multiple pressure injuries. Moisture intertrigo noted to abdominal folds,R and L groin. Skin folds erythematous ,grossly denuded and malodorous. Dry scab noted to L knee which pt stated was from fall in her home. Full thickness stage 3 pressure injury upper/outer R buttocks. Base of wound 75 % necrotic,25% viable with surrounding dark borders. Small amt seropurulent exudate. No odor noted.(L)10.5cm x (W)5.8cm. Open DTPI upper/inner aspect R buttocks. Base of wound black and fluctuant,10% viable.(L)1.5cm x (W)2.7cm. Full thickness stage 3 pressure injury sacrococcygeal area Base of wound is maroon, with multiple small open wounds with slough that are within base of wound.Small amt sanguineous exudate noted. Pt complained of pain when minimally palpated.(L)4.5cm x (W)2.7cm.Periwound macerated with non-blanching erythema. Full thickness stage 3 pressure injury with undermining L ischium. Scattered slough at base of wound. Mild odor noted. Small amt purulent exudate noted. Borders are erythematous and macerated.Mild odor noted.(L)7cm x (W)10.5cmx (D) 1.1cm,undermining clockwise 1-6 by 3.2cm @3o'clock. Full thickness stage 3 pressure injury noted to upper lateral/posterior R thigh. Base of wound is 90% necrotic with surrounding slough. erythematous borders. (L)1cm x (W)2.7cm. Full thickness stage 3 ulcer plantar R foot. Base of wound 25% necrotic,75% fibrinous slough. borers are macerated . Small amt. londono coloured exudate noted. Wound is malodorous.(L)1.5cm x (W)3.5cm. Large blood filled blister noted to lateral/plantar L foot (L)7.5cm x (W)8.3cm. Full thickness stage 3 ulcer noted to L 1st metatarsal head (L)0.8cm x (W) 0.5cm. Small amt sanguineous exudate noted. Moist peeling skin periwound. Small ulcers noted to L 4th and 5th metatarsals. Each wound noted to have small amt sanguineous exudate. Full thickness stage 3 ulcer noted L heel. Base of wound 40% necrotic, with scattered slough. Borders macerated and erythematous. Small amt. malodorous londono coloured exudate.(L)6.5cm x (W)8.8cm. R heel boggy with non-blanching erythema. Tx.Plan: Cleanse wounds Buttocks with Saline. Apply Therahoney to each wound. Apply Moisture Barrier Paste periwound. Cover each wound with Optifoam drsgs.Change every 3 days and prn. Cleanse wound L ischium with Saline. Loosely pack with Therahoney impregnated Kerlix Gauze. Apply Moisture Barrier Paste periwound. Cover with Optifoam drsg. Change every 3 days and prn. Cleanse wound posterior upper L thigh with Saline. Apply TheraHoney. Apply Cavilon Skin Barrier periwound. Cover with Optifoam drsg every 3 days and prn. Cleanse wounds L heel with Saline. Apply Therahoney. Apply Cavilon Skin Barrier periwound.Cover with Abd Pad. Wrap with Kerlix every 3days and prn. Cleanse wounds L st,4th and 5th metatarsals with Saline weave dry gauze between toes Daily and prn. Apply Cavilon Skin Barrier to DTPI L foot. Cover with Abd Pad. Wrap with Kerlix every 3 days and prn. Apply Cavilon Skin Barrier to R heel. Cover with Optifoam drsg. Change every 7 days and prn. Apply Antifungal Powder to Clean,Dry Skin in abdominal folds, R and L groin with ABD pads in skin folds Twice Daily. Air Fluidized Mattress. Reposition at least every 2hours or as tolerated. Place pillow between knees. Off-load heels with Pillow. (2) Cellulitis Assessment & Plan: Abx as per ID wounds will need care while in hospital with good care on d/c as not well kept Bone marrow signal is normal and preserved throughout the calcaneus. There is some absence of subcutaneous fat posterior to the calcaneus consistent with a given history of chronic ulceration in this location. There is also generalized subcutaneous edema involving the ankle specially on the lateral side. There is no evidence of an abnormal fluid collection. There are multiple periventricular cystic foci mainly in the subchondral bone within several intertarsal joints. There is a trace amount of fluid in the retrocalcaneal bursa. The Achilles tendon and plantar aponeurosis appear unremarkable. No evidence of acute osteomyelitis. Multiple cystic periarticular signal abnormalities, at least one of which is visible by plain x-ray involving the first interphalangeal joint. Consider gout or other inflammatory arthropathies. Differential includes subchondral geodes. RIGHT LEG: Common femoral artery waveform analysis is within normal limits at rest. Color flow duplex sonography reveals calcification throughout the superficial femoral artery. A mild (40-50%) stenosis is seen in the superficial femoral artery. There is no evidence of occlusion within this segment. The popliteal artery is patent. The tibioperoneal trunk was not well visualized. The distal posterior and dorsalis pedis arteries are also calcified. The Doppler tibial artery waveform analysis is compatible with moderate ischemia at rest. Doppler tibial artery waveform analysis is compatible with moderate ischemia at rest. LEFT LEG: Common femoral artery waveform analysis is within normal limits at rest. Color flow duplex sonography reveals calcification throughout the superficial femoral artery. A mild (40-50%) stenosis is seen in the superficial femoral artery. There is no evidence of occlusion within this segment. The popliteal artery is patent. The tibioperoneal trunk was not well visualized. The distal posterior and dorsalis pedis arteries are also calcified. The Doppler tibial artery waveform analysis is compatible with moderate ischemia at rest. Doppler tibial artery waveform analysis is compatible with moderate to severe ischemia at rest. multiple and in different areas needs aggressive care nutritional support will follow with recs thank you Lakhwinder Dai Jan 25, 2019 18:42
[2019-01-25] MEDS: Iron Sucrose 100 MG in NS 55 ML IV SCH (21:39)
--- NOTE | 2019-01-25 22:50 | General Progress Note ---
Assessment/Plan Status: stable, progressing Assessment/Plan: Assessment - Heme (+) Stools - anemia - skin breakdown - CAD - HTN - h/o CVA Recommendations - Transfuse PRN - PPI BID - agree with IV Fe - Elevate HOB - push po - unable to locate family - will ask [employer] CONSULTANT to help - conservative management Subjective Allergies: Coded Allergies: PENICILLINS (Verified Allergy, Mild, 04/21/10) Uncoded Allergies: SEAFOOD (Allergy, Mild, 04/21/10) Objective Last 24 Hour Vital Signs Date Time Temp Pulse Resp B/P (MAP) Pulse Ox O2 Delivery O2 Flow Rate FiO2 01/25/19 19:59 103 18 99 Room Air 21 01/25/19 19:49 104 18 98 Room Air 21 01/25/19 17:30 98.6 93 18 128/57 (80) 96 01/25/19 16:00 98.2 101 20 139/88 (105) 97 01/25/19 14:20 98.2 100 20 134/83 (100) 95 01/25/19 13:23 78 16 97 Room Air 21 74 18 96 01/25/19 11:30 96.8 115 18 124/60 (81) 01/25/19 11:00 97.7 112 18 118/51 (73) 97 01/25/19 09:00 Room Air 01/25/19 08:43 131/67 01/25/19 08:00 98.8 108 20 131/67 (88) 97 01/25/19 07:39 86 16 98 Room Air 21 84 16 97 01/25/19 04:00 98.3 94 18 148/73 (98) 100 01/25/19 00:00 98.2 93 18 126/53 (77) 99 Intake and Output 01/24/19 01/25/19 19:00 07:00 Intake Total 1346.666 ml Output Total 600 ml 450 ml Balance 746.666 ml -450 ml Intake Oral 980 ml IV Total 366.666 ml Output Urine Total 600 ml 450 ml # Bowel Movements 1 Laboratory Tests 01/25/19 06:25: White Blood Count 12.6H, Red Blood Count 2.21L, Hemoglobin 6.8*L, Hematocrit 20.1L, Mean Corpuscular Volume 91, Mean Corpuscular Hemoglobin 30.8, Mean Corpuscular Hemoglobin Concent 33.8, Red Cell Distribution Width 15.2H, Platelet Count 259, Mean Platelet Volume 5.0L, Neutrophils (%) (Auto) , Lymphocytes (%) (Auto) , Monocytes (%) (Auto) , Eosinophils (%) (Auto) , Basophils (%) (Auto) , Differential Total Cells Counted 100, Neutrophils % ( Manual) 72, Lymphocytes % (Manual) 19L, Monocytes % (Manual) 4, Eosinophils % ( Manual) 5H, Basophils % (Manual) 0, Band Neutrophils 0, Platelet Estimate Adequate, Platelet Morphology Normal, Hypochromasia 1+, Anisocytosis 1+, Sodium Level 140, Potassium Level 3.7, Chloride Level 109H, Carbon Dioxide Level 25, Anion Gap 7, Blood Urea Nitrogen 24H, Creatinine 0.7, Estimat Glomerular Filtration Rate , Glucose Level 92, Calcium Level 7.6L, Magnesium Level 1.6L, Total Bilirubin 0.3, Aspartate Amino Transf (AST/SGOT) 14L, Alanine Aminotransferase (ALT/SGPT) 6L, Alkaline Phosphatase 65, Pro-B-Type Natriuretic Peptide 2271H, Total Protein 5.4L, Albumin 1.6L, Globulin 3.8, Albumin/Globulin Ratio 0.4L Height (Feet): 5 Height (Inches): 5.00 Weight (Pounds): 164 Marjorie Hyde MD Jan 25, 2019 22:50
[2019-01-25] MEDS ORDERED: Pantoprazole Inj IVP SCH ×2 (23:00)
[2019-01-26] VITALS: BP 144/87
[2019-01-26] MEDS: Pantoprazole Inj IVP SCH ×2 (00:44→08:33)
--- NOTE | 2019-01-26 03:15 | Consultation ---
DATE OF CONSULTATION: 01/25/2019 GASTROENTEROLOGY CONSULTATION CONSULTING PHYSICIAN: Marjorie Hyde M.D. CHIEF COMPLAINT: I was asked to see this patient by Dr. James Archibald and Dr. Eloy Hughes for evaluation of anemia and heme-positive stools. HISTORY OF PRESENT ILLNESS: The patient is an unfortunate 88-year-old woman with multiple medical problems who was admitted to the hospital with multiple issues. The patient has had a history of stroke in the past and she is debilitated. She has also got bedsores and pressure ulcers and has bandages over them. She also was found to have significant degree of anemia, which worsened during the admission and now blood for stool test done and shown to be heme-positive. The patient cannot recall if she has ever had endoscopy or colonoscopy. She denies any abdominal pain, nausea, vomiting, diarrhea, constipation, hematochezia, or pyrosis. PAST MEDICAL HISTORY: Status post cholecystectomy, status post hysterectomy, history of right eye surgery, history of stroke, decubitus ulceration, bedbound state. FAMILY HISTORY: Noncontributory. SOCIAL HISTORY: The patient does not smoke or drink. REVIEW OF SYSTEMS: Otherwise negative. PHYSICAL EXAMINATION: GENERAL: This is a pleasant elderly woman, seen in her room. HEENT: Normocephalic and atraumatic. Sclerae anicteric. There was some right pupillary scarring. NECK: Supple. CHEST: Revealed coarse rhonchi. CARDIOVASCULAR: Revealed a regular rate. ABDOMEN: Soft. EXTREMITIES: Revealed contractions of wounds. LABORATORY DATA: Noted. ASSESSMENT: This patient presents with anemia, which is normocytic that is significant and therefore requiring a blood transfusion. Differential diagnosis is somewhat long, but the patient's overall health was somewhat poor and she is not an optimal candidate for gastrointestinal endoscopy. I will place the patient on a proton pump inhibitor for now to protect her upper GI tract and we will try to contact family for some discussion. In the meantime, she can be transfused as necessary to maintain acceptable blood volume. I would elevate head of bed and push oral intake as tolerated. RECOMMENDATIONS: Per above discussion and per orders written in the chart. Thank you for asking me to participate in the care of this patient. Marjorie Hyde M.D. DR: KATE JOB#: [id number] CC:
[2019-01-26 04:00] VITALS: BP 153/81
--- NOTE | 2019-01-26 04:45 | Progress Note ---
DATE: 01/25/2019 SUBJECTIVE: The patient is in bed, no acute distress. Episodes of anxiety. Withdrawn and depressed. MENTAL STATUS EXAMINATION: The patient is alert and oriented times self and place. Mood is depressed. Affect is constricted. Congruent with mood. Thought process, linear. Thought content, no suicidal or homicidal ideation. Memory is impaired. Insight and judgment are impaired. ASSESSMENT: 1. Cognitive impairment. 2. Depression. PLAN: 1. We will continue the current psychotropic medications. 2. fci versus her own home. Lela Crawford M.D. DR: HEIDY JOB#: [id number] CC:
[2019-01-26] MEDS: Heparin 5000 units/ml inj SUBQ SCH ×2 (05:32→13:11)
[2019-01-26 06:22] LABS: BASOPHILS % (AUTO) 1.1 % (0.0-2.0); HEMATOCRIT 30.2 % (37.0-47.0); HEMOGLOBIN 10.1 G/DL (12.0-16.0); LYMPHOCYTES % (AUTO) 14.5 % (20.0-45.0); MEAN CORPUSCULAR VOLUME 90 FL (80-99); MONOCYTES % (AUTO) 5.6 % (1.0-10.0); NEUTROPHILS % (AUTO) 72.8 % (45.0-75.0); PLATELET COUNT 358 K/UL (150-450); RED BLOOD COUNT 3.34 M/UL (4.20-5.40); RED CELL DISTRIBUTION WIDTH 15.9 % (11.6-14.8); WHITE BLOOD COUNT 13.1 K/UL (4.8-10.8)
[2019-01-26 07:07] LABS: ALANINE AMINOTRANSFERASE 9 U/L (12-78); ALBUMIN 1.8 G/DL (3.4-5.0); ALBUMIN/GLOBULIN RATIO 0.4 (1.0-2.7); ALKALINE PHOSPHATASE 73 U/L (46-116); ANION GAP 8 mmol/L (5-15); ASPARTATE AMINO TRANSFERASE 19 U/L (15-37); BILIRUBIN,TOTAL 0.7 MG/DL (0.2-1.0); BLOOD UREA NITROGEN 18 mg/dL (7-18); CALCIUM 7.5 MG/DL (8.5-10.1); CARBON DIOXIDE 24 MMOL/L (21-32); CHLORIDE 107 MMOL/L (98-107); CREATININE 0.7 MG/DL (0.55-1.30); POTASSIUM 3.6 MMOL/L (3.5-5.1); SODIUM 139 MMOL/L (136-145)
[2019-01-26 08:00] VITALS: BP 159/80
[2019-01-26] MEDS: Docusate 100mg cap ORAL SCH ×2 (08:32→17:13)
[2019-01-26] MEDS: Lisinopril 20mg tab ORAL SCH (08:32)
[2019-01-26] MEDS: Ascorbic Acid 500mg tab ORAL SCH ×2 (08:32→17:12)
--- NOTE | 2019-01-26 08:37 | General Progress Note ---
Assessment/Plan Problem List: (1) CVA (cerebral vascular accident) ICD Codes: I63.9 - Cerebral infarction, unspecified SNOMED: 130622139 (2) Anemia ICD Codes: D64.9 - Anemia, unspecified SNOMED: 767180758 (3) UTI (urinary tract infection) ICD Codes: N39.0 - Urinary tract infection, site not specified SNOMED: 87949374 (4) Foot ulcer ICD Codes: L97.509 - Non-pressure chronic ulcer of other part of unspecified foot with unspecified severity SNOMED: 34978018 (5) Pneumonia ICD Codes: J18.9 - Pneumonia, unspecified organism SNOMED: 066437242 (6) Cellulitis ICD Codes: L03.90 - Cellulitis, unspecified SNOMED: 287703731 (7) Pedal edema ICD Codes: R60.0 - Localized edema SNOMED: 301894843 (8) Chronic deep vein thrombosis (DVT) ICD Codes: I82.509 - Chronic embolism and thrombosis of unspecified deep veins of unspecified lower extremity SNOMED: 75481622013672361 Status: stable, progressing Assessment/Plan: transfuse as needed PPI off aspirin cont wound care air mattress turn q2 heel protectors iv abx per if monitor h/h Subjective ROS Limited/Unobtainable: No Constitutional: Reports: malaise, weakness HEENT: Reports: no symptoms Cardiovascular: Reports: no symptoms Respiratory: Reports: no symptoms Gastrointestinal/Abdominal: Reports: no symptoms Genitourinary: Reports: no symptoms Neurologic/Psychiatric: Reports: pre-existing deficit Endocrine: Reports: no symptoms Hematologic/Lymphatic: Reports: anemia Allergies: Coded Allergies: PENICILLINS (Verified Allergy, Mild, 04/21/10) Uncoded Allergies: SEAFOOD (Allergy, Mild, 04/21/10) All Systems: reviewed and negative except above Subjective no events. no new complaints. no cp/sob. no fevers or chills. on iv abx. s/p 2 units. OB + stool noted. off antiplt rx. GI noted. Objective Last 24 Hour Vital Signs Date Time Temp Pulse Resp B/P (MAP) Pulse Ox O2 Delivery O2 Flow Rate FiO2 01/26/19 08:32 159/80 01/26/19 08:00 98.0 65 12 159/80 (106) 99 01/26/19 04:00 97.9 65 17 153/81 (105) 99 01/26/19 00:00 98.5 96 19 144/87 (106) 98 96 01/25/19 21:00 Room Air 01/25/19 20:00 97.9 88 18 141/67 (91) 98 88 01/25/19 19:59 103 18 99 Room Air 21 01/25/19 19:49 104 18 98 Room Air 21 01/25/19 17:30 98.6 93 18 128/57 (80) 96 01/25/19 16:00 98.2 101 20 139/88 (105) 97 01/25/19 14:20 98.2 100 20 134/83 (100) 95 01/25/19 13:23 78 16 97 Room Air 21 74 18 96 01/25/19 11:30 96.8 115 18 124/60 (81) 01/25/19 11:00 97.7 112 18 118/51 (73) 97 01/25/19 09:00 Room Air 01/25/19 08:43 131/67 Intake and Output 01/25/19 01/26/19 19:00 07:00 Intake Total 600 ml 240 ml Output Total 500 ml Balance 600 ml -260 ml IV Total 100 ml 240 ml Blood Product 500 ml Output Urine Total 500 ml # Bowel Movements 2 Laboratory Tests 01/26/19 05:48: White Blood Count 13.1H, Red Blood Count 3.34L, Hemoglobin 10.1#L, Hematocrit 30.2#L, Mean Corpuscular Volume 90, Mean Corpuscular Hemoglobin 30.3, Mean Corpuscular Hemoglobin Concent 33.5, Red Cell Distribution Width 15.9H, Platelet Count 358, Mean Platelet Volume 4.8L, Neutrophils (%) (Auto) 72.8, Lymphocytes (%) (Auto) 14.5L, Monocytes (%) (Auto) 5.6, Eosinophils (%) (Auto) 6.0H, Basophils (%) (Auto) 1.1, Sodium Level 139, Potassium Level 3.6, Chloride Level 107, Carbon Dioxide Level 24, Anion Gap 8, Blood Urea Nitrogen 18, Creatinine 0.7, Estimat Glomerular Filtration Rate , Glucose Level 92, Calcium Level 7.5L, Magnesium Level 1.8, Total Bilirubin 0.7, Aspartate Amino Transf ( AST/SGOT) 19, Alanine Aminotransferase (ALT/SGPT) 9L, Alkaline Phosphatase 73, Pro-B-Type Natriuretic Peptide 3294H, Total Protein 6.1L, Albumin 1.8L, Globulin 4.3, Albumin/Globulin Ratio 0.4L Height (Feet): 5 Height (Inches): 5.00 Weight (Pounds): 164 Objective General Appearance: alert Neck: supple Cardiovascular: normal rate, regular rhythm Respiratory/Chest: chest wall non-tender, lungs clear, normal breath sounds, no respiratory distress, no accessory muscle use Abdomen: normal bowel sounds, non tender, soft, no organomegaly Edema: no edema noted Arm (L), no edema noted Arm (R), no edema noted Leg (L), no edema noted Leg (R), no edema noted Pedal (L), no edema noted Pedal (R), no edema noted Generalized Neurologic: credit portfolio manager II-XII grossly normal, alert, oriented x 3, responsive Eloy Hughes MD Jan 26, 2019 08:37
--- NOTE | 2019-01-26 11:10 | Infectious Diseases Prog Note ---
Assessment/Plan Assessment/Plan antibiotics : vancomycin iv A 1. enterococcus UTI s/p rx 2. left foot ulcers, MRI negative for osteomyelitis 3. CVA P 1. d/c iv vancomycin 2. will follow up cultures Subjective Constitutional: Denies: fever, chills Respiratory: Denies: shortness of breath, dry cough Gastrointestinal/Abdominal: Denies: nausea, vomiting, diarrhea Musculoskeletal: Reports: pain - in left foot Allergies: Coded Allergies: PENICILLINS (Verified Allergy, Mild, 04/21/10) Uncoded Allergies: SEAFOOD (Allergy, Mild, 04/21/10) Objective Vital Signs Last 24 Hour Vital Signs Date Time Temp Pulse Resp B/P (MAP) Pulse Ox O2 Delivery O2 Flow Rate FiO2 01/26/19 10:17 Room Air 01/26/19 08:32 159/80 01/26/19 08:20 Room Air 01/26/19 08:00 98.0 65 12 159/80 (106) 99 01/26/19 04:00 97.9 65 17 153/81 (105) 99 01/26/19 00:00 98.5 96 19 144/87 (106) 98 96 01/25/19 21:00 Room Air 01/25/19 20:00 97.9 88 18 141/67 (91) 98 88 01/25/19 19:59 103 18 99 Room Air 21 01/25/19 19:49 104 18 98 Room Air 21 01/25/19 17:30 98.6 93 18 128/57 (80) 96 01/25/19 16:00 98.2 101 20 139/88 (105) 97 01/25/19 14:20 98.2 100 20 134/83 (100) 95 01/25/19 13:23 78 16 97 Room Air 21 74 18 96 01/25/19 11:30 96.8 115 18 124/60 (81) Height (Feet): 5 Height (Inches): 5.00 Weight (Pounds): 164 Respiratory/Chest: lungs clear Cardiovascular: normal rate, regular rhythm, no gallop/murmur Abdomen: soft, non tender Extremities: other - left foot in dressings Laboratory Tests Test 01/26/19 05:48 White Blood Count 13.1 K/UL (4.8-10.8) H Red Blood Count 3.34 M/UL (4.20-5.40) L Hemoglobin 10.1 G/DL (12.0-16.0) #L Hematocrit 30.2 % (37.0-47.0) #L Mean Corpuscular Volume 90 FL (80-99) Mean Corpuscular Hemoglobin 30.3 PG (27.0-31.0) Mean Corpuscular Hemoglobin Concent 33.5 G/DL (32.0-36.0) Red Cell Distribution Width 15.9 % (11.6-14.8) H Platelet Count 358 K/UL (150-450) Mean Platelet Volume 4.8 FL (6.5-10.1) L Neutrophils (%) (Auto) 72.8 % (45.0-75.0) Lymphocytes (%) (Auto) 14.5 % (20.0-45.0) L Monocytes (%) (Auto) 5.6 % (1.0-10.0) Eosinophils (%) (Auto) 6.0 % (0.0-3.0) H Basophils (%) (Auto) 1.1 % (0.0-2.0) Sodium Level 139 MMOL/L (136-145) Potassium Level 3.6 MMOL/L (3.5-5.1) Chloride Level 107 MMOL/L (98-107) Carbon Dioxide Level 24 MMOL/L (21-32) Anion Gap 8 mmol/L (5-15) Blood Urea Nitrogen 18 mg/dL (7-18) Creatinine 0.7 MG/DL (0.55-1.30) Estimat Glomerular Filtration Rate mL/min (>60) Glucose Level 92 MG/DL (74-106) Calcium Level 7.5 MG/DL (8.5-10.1) L Magnesium Level 1.8 MG/DL (1.8-2.4) Total Bilirubin 0.7 MG/DL (0.2-1.0) Aspartate Amino Transf (AST/SGOT) 19 U/L (15-37) Alanine Aminotransferase (ALT/SGPT) 9 U/L (12-78) L Alkaline Phosphatase 73 U/L (46-116) Pro-B-Type Natriuretic Peptide 3294 pg/mL (0-125) H Total Protein 6.1 G/DL (6.4-8.2) L Albumin 1.8 G/DL (3.4-5.0) L Globulin 4.3 g/dL Albumin/Globulin Ratio 0.4 (1.0-2.7) L Current Medications Medications (Trade) Dose Ordered Sig/Marge Route PRN Reason Start Time Stop Time Status Last Admin Dose Admin Acetaminophen (Tylenol) 650 mg Q6H PRN ORAL Mild Pain/Temp > 100.5 01/21/19 13:00 02/20/19 12:59 01/22/19 17:46 Ascorbic Acid (Vitamin C) 250 mg TWICE A DAY ORAL 01/26/19 09:00 02/25/19 08:59 01/26/19 08:32 Clonidine HCl (Catapres Tab) 0.1 mg Q4H PRN ORAL For High Blood Pressure 01/24/19 01:45 02/23/19 01:44 01/24/19 01:37 Clopidogrel Bisulfate (Plavix) 75 mg DAILY ORAL 01/21/19 09:00 02/20/19 08:59 01/26/19 08:32 Docusate Sodium (Colace) 100 mg TWICE A DAY ORAL 01/21/19 18:00 02/20/19 17:59 01/26/19 08:32 Folic Acid (Folate) 1 mg DAILY ORAL 01/22/19 09:00 02/21/19 08:59 01/26/19 08:33 Heparin Sodium (Porcine) (Heparin 5000 units/ml) 5,000 units EVERY 8 HOURS SUBQ 01/21/19 06:00 02/20/19 05:59 01/26/19 05:32 Iron Sucrose 100 mg/Sodium Chloride 60 ml @ 240 mls/hr BEDTIME IV 01/22/19 21:00 01/26/19 21:14 01/25/19 21:39 Lisinopril (Prinivil) 20 mg DAILY ORAL 01/21/19 09:00 02/20/19 08:59 01/26/19 08:32 Lorazepam (Ativan) 1 mg Q6H PRN ORAL For Anxiety 01/21/19 23:30 01/28/19 23:29 Mirtazapine (Remeron) 7.5 mg BEDTIME ORAL 01/22/19 21:00 02/21/19 20:59 01/25/19 21:40 Multivitamins (Multivitamins) 1 tab DAILY ORAL 01/26/19 09:00 02/25/19 08:59 01/26/19 08:32 Pantoprazole (Protonix) 40 mg EVERY 12 HOURS IVP 01/26/19 00:40 02/25/19 00:39 01/26/19 08:33 Vancomycin HCl (Vanco rx to dose) 1 ea DAILY PRN MISC Per rx protocol 01/20/19 22:00 02/19/19 21:59 Vancomycin HCl 1 gm/Sodium Chloride 275 ml @ 183.333 mls/hr 1600 IVPB 01/21/19 16:00 01/26/19 23:59 01/25/19 17:59 Sreedhar Murphy MD Jan 26, 2019 11:10
--- NOTE | 2019-01-26 11:32 | Surgery Progress Note ---
Surgery Progress Note Subjective Additional Comments responded to transfusion h/h improved comfortable leukocytosis Objective Last 24 Hour Vital Signs Date Time Temp Pulse Resp B/P (MAP) Pulse Ox O2 Delivery O2 Flow Rate FiO2 01/26/19 10:17 Room Air 01/26/19 08:32 159/80 01/26/19 08:20 Room Air 01/26/19 08:00 98.0 65 12 159/80 (106) 99 01/26/19 04:00 97.9 65 17 153/81 (105) 99 01/26/19 00:00 98.5 96 19 144/87 (106) 98 96 01/25/19 21:00 Room Air 01/25/19 20:00 97.9 88 18 141/67 (91) 98 88 01/25/19 19:59 103 18 99 Room Air 21 01/25/19 19:49 104 18 98 Room Air 21 01/25/19 17:30 98.6 93 18 128/57 (80) 96 01/25/19 16:00 98.2 101 20 139/88 (105) 97 01/25/19 14:20 98.2 100 20 134/83 (100) 95 01/25/19 13:23 78 16 97 Room Air 21 74 18 96 I&O Intake and Output 01/25/19 01/26/19 18:59 06:59 Intake Total 600 ml 240 ml Output Total 500 ml Balance 600 ml -260 ml IV Total 100 ml 240 ml Blood Product 500 ml Output Urine Total 500 ml # Bowel Movements 2 Dressing: dry Wound: clean Drains: other Cardiovascular: RSR Respiratory: clear Abdomen: soft, non-tender, present bowel sounds Extremities: no cyanosis, other Laboratory Tests Test 01/26/19 05:48 White Blood Count 13.1 K/UL (4.8-10.8) H Red Blood Count 3.34 M/UL (4.20-5.40) L Hemoglobin 10.1 G/DL (12.0-16.0) #L Hematocrit 30.2 % (37.0-47.0) #L Mean Corpuscular Volume 90 FL (80-99) Mean Corpuscular Hemoglobin 30.3 PG (27.0-31.0) Mean Corpuscular Hemoglobin Concent 33.5 G/DL (32.0-36.0) Red Cell Distribution Width 15.9 % (11.6-14.8) H Platelet Count 358 K/UL (150-450) Mean Platelet Volume 4.8 FL (6.5-10.1) L Neutrophils (%) (Auto) 72.8 % (45.0-75.0) Lymphocytes (%) (Auto) 14.5 % (20.0-45.0) L Monocytes (%) (Auto) 5.6 % (1.0-10.0) Eosinophils (%) (Auto) 6.0 % (0.0-3.0) H Basophils (%) (Auto) 1.1 % (0.0-2.0) Sodium Level 139 MMOL/L (136-145) Potassium Level 3.6 MMOL/L (3.5-5.1) Chloride Level 107 MMOL/L (98-107) Carbon Dioxide Level 24 MMOL/L (21-32) Anion Gap 8 mmol/L (5-15) Blood Urea Nitrogen 18 mg/dL (7-18) Creatinine 0.7 MG/DL (0.55-1.30) Estimat Glomerular Filtration Rate mL/min (>60) Glucose Level 92 MG/DL (74-106) Calcium Level 7.5 MG/DL (8.5-10.1) L Magnesium Level 1.8 MG/DL (1.8-2.4) Total Bilirubin 0.7 MG/DL (0.2-1.0) Aspartate Amino Transf (AST/SGOT) 19 U/L (15-37) Alanine Aminotransferase (ALT/SGPT) 9 U/L (12-78) L Alkaline Phosphatase 73 U/L (46-116) Pro-B-Type Natriuretic Peptide 3294 pg/mL (0-125) H Total Protein 6.1 G/DL (6.4-8.2) L Albumin 1.8 G/DL (3.4-5.0) L Globulin 4.3 g/dL Albumin/Globulin Ratio 0.4 (1.0-2.7) L Plan Problems: (1) Foot ulcer Assessment & Plan: Pt presented on admission grossly unkempt with multiple pressure injuries. Moisture intertrigo noted to abdominal folds,R and L groin. Skin folds erythematous ,grossly denuded and malodorous. Dry scab noted to L knee which pt stated was from fall in her home. Full thickness stage 3 pressure injury upper/outer R buttocks. Base of wound 75 % necrotic,25% viable with surrounding dark borders. Small amt seropurulent exudate. No odor noted.(L)10.5cm x (W)5.8cm. Open DTPI upper/inner aspect R buttocks. Base of wound black and fluctuant,10% viable.(L)1.5cm x (W)2.7cm. Full thickness stage 3 pressure injury sacrococcygeal area Base of wound is maroon, with multiple small open wounds with slough that are within base of wound.Small amt sanguineous exudate noted. Pt complained of pain when minimally palpated.(L)4.5cm x (W)2.7cm.Periwound macerated with non-blanching erythema. Full thickness stage 3 pressure injury with undermining L ischium. Scattered slough at base of wound. Mild odor noted. Small amt purulent exudate noted. Borders are erythematous and macerated.Mild odor noted.(L)7cm x (W)10.5cmx (D) 1.1cm,undermining clockwise 1-6 by 3.2cm @3o'clock. Full thickness stage 3 pressure injury noted to upper lateral/posterior R thigh. Base of wound is 90% necrotic with surrounding slough. erythematous borders. (L)1cm x (W)2.7cm. Full thickness stage 3 ulcer plantar R foot. Base of wound 25% necrotic,75% fibrinous slough. borers are macerated . Small amt. londono coloured exudate noted. Wound is malodorous.(L)1.5cm x (W)3.5cm. Large blood filled blister noted to lateral/plantar L foot (L)7.5cm x (W)8.3cm. Full thickness stage 3 ulcer noted to L 1st metatarsal head (L)0.8cm x (W) 0.5cm. Small amt sanguineous exudate noted. Moist peeling skin periwound. Small ulcers noted to L 4th and 5th metatarsals. Each wound noted to have small amt sanguineous exudate. Full thickness stage 3 ulcer noted L heel. Base of wound 40% necrotic, with scattered slough. Borders macerated and erythematous. Small amt. malodorous londono coloured exudate.(L)6.5cm x (W)8.8cm. R heel boggy with non-blanching erythema. Tx.Plan: Cleanse wounds Buttocks with Saline. Apply Therahoney to each wound. Apply Moisture Barrier Paste periwound. Cover each wound with Optifoam drsgs.Change every 3 days and prn. Cleanse wound L ischium with Saline. Loosely pack with Therahoney impregnated Kerlix Gauze. Apply Moisture Barrier Paste periwound. Cover with Optifoam drsg. Change every 3 days and prn. Cleanse wound posterior upper L thigh with Saline. Apply TheraHoney. Apply Cavilon Skin Barrier periwound. Cover with Optifoam drsg every 3 days and prn. Cleanse wounds L heel with Saline. Apply Therahoney. Apply Cavilon Skin Barrier periwound.Cover with Abd Pad. Wrap with Kerlix every 3days and prn. Cleanse wounds L st,4th and 5th metatarsals with Saline weave dry gauze between toes Daily and prn. Apply Cavilon Skin Barrier to DTPI L foot. Cover with Abd Pad. Wrap with Kerlix every 3 days and prn. Apply Cavilon Skin Barrier to R heel. Cover with Optifoam drsg. Change every 7 days and prn. Apply Antifungal Powder to Clean,Dry Skin in abdominal folds, R and L groin with ABD pads in skin folds Twice Daily. Air Fluidized Mattress. Reposition at least every 2hours or as tolerated. Place pillow between knees. Off-load heels with Pillow. (2) Cellulitis Assessment & Plan: Abx as per ID wounds will need care while in hospital with good care on d/c as not well kept Bone marrow signal is normal and preserved throughout the calcaneus. There is some absence of subcutaneous fat posterior to the calcaneus consistent with a given history of chronic ulceration in this location. There is also generalized subcutaneous edema involving the ankle specially on the lateral side. There is no evidence of an abnormal fluid collection. There are multiple periventricular cystic foci mainly in the subchondral bone within several intertarsal joints. There is a trace amount of fluid in the retrocalcaneal bursa. The Achilles tendon and plantar aponeurosis appear unremarkable. No evidence of acute osteomyelitis. Multiple cystic periarticular signal abnormalities, at least one of which is visible by plain x-ray involving the first interphalangeal joint. Consider gout or other inflammatory arthropathies. Differential includes subchondral geodes. RIGHT LEG: Common femoral artery waveform analysis is within normal limits at rest. Color flow duplex sonography reveals calcification throughout the superficial femoral artery. A mild (40-50%) stenosis is seen in the superficial femoral artery. There is no evidence of occlusion within this segment. The popliteal artery is patent. The tibioperoneal trunk was not well visualized. The distal posterior and dorsalis pedis arteries are also calcified. The Doppler tibial artery waveform analysis is compatible with moderate ischemia at rest. Doppler tibial artery waveform analysis is compatible with moderate ischemia at rest. LEFT LEG: Common femoral artery waveform analysis is within normal limits at rest. Color flow duplex sonography reveals calcification throughout the superficial femoral artery. A mild (40-50%) stenosis is seen in the superficial femoral artery. There is no evidence of occlusion within this segment. The popliteal artery is patent. The tibioperoneal trunk was not well visualized. The distal posterior and dorsalis pedis arteries are also calcified. The Doppler tibial artery waveform analysis is compatible with moderate ischemia at rest. Doppler tibial artery waveform analysis is compatible with moderate to severe ischemia at rest. multiple and in different areas needs aggressive care as being provided by great nursing staff nutritional support will follow with recs thank you Lakhwinder Dai Jan 26, 2019 11:32
[2019-01-26 12:00] VITALS: BP 149/96
--- NOTE | 2019-01-26 14:02 | Pulmonology Progress Note ---
Assessment/Plan Assessment/Plan IMPRESSION: 1. Multiple pressure wounds. 2. UTI. 3. No evidence of pneumonia. 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 Currently, she is normoxemic. Continue antibiotics per ID. Jus Patel M.D. Subjective Interval Events: has mild leukocytosis Constitutional: Reports: no symptoms HEENT: Repors: no symptoms Respiratory: Reports: no symptoms Cardiovascular: Reports: no symptoms Gastrointestinal/Abdominal: Reports: no symptoms Allergies: Coded Allergies: PENICILLINS (Verified Allergy, Mild, 04/21/10) Uncoded Allergies: SEAFOOD (Allergy, Mild, 04/21/10) Objective Last 24 Hour Vital Signs Date Time Temp Pulse Resp B/P (MAP) Pulse Ox O2 Delivery O2 Flow Rate FiO2 01/26/19 12:00 97.5 102 15 149/96 (113) 95 01/26/19 10:17 Room Air 01/26/19 08:32 159/80 01/26/19 08:20 Room Air 01/26/19 08:00 98.0 65 12 159/80 (106) 99 01/26/19 04:00 97.9 65 17 153/81 (105) 99 01/26/19 00:00 98.5 96 19 144/87 (106) 98 96 01/25/19 21:00 Room Air 01/25/19 20:00 97.9 88 18 141/67 (91) 98 88 01/25/19 19:59 103 18 99 Room Air 21 01/25/19 19:49 104 18 98 Room Air 21 01/25/19 17:30 98.6 93 18 128/57 (80) 96 01/25/19 16:00 98.2 101 20 139/88 (105) 97 01/25/19 14:20 98.2 100 20 134/83 (100) 95 Intake and Output 01/25/19 01/26/19 18:59 06:59 Intake Total 600 ml 240 ml Output Total 500 ml Balance 600 ml -260 ml IV Total 100 ml 240 ml Blood Product 500 ml Output Urine Total 500 ml # Bowel Movements 2 General Appearance: no acute distress HEENT: normocephalic Respiratory/Chest: chest wall non-tender, lungs clear Cardiovascular: normal peripheral pulses Abdomen: normal bowel sounds Laboratory Tests 01/26/19 05:48: White Blood Count 13.1H, Red Blood Count 3.34L, Hemoglobin 10.1#L, Hematocrit 30.2#L, Mean Corpuscular Volume 90, Mean Corpuscular Hemoglobin 30.3, Mean Corpuscular Hemoglobin Concent 33.5, Red Cell Distribution Width 15.9H, Platelet Count 358, Mean Platelet Volume 4.8L, Neutrophils (%) (Auto) 72.8, Lymphocytes (%) (Auto) 14.5L, Monocytes (%) (Auto) 5.6, Eosinophils (%) (Auto) 6.0H, Basophils (%) (Auto) 1.1, Sodium Level 139, Potassium Level 3.6, Chloride Level 107, Carbon Dioxide Level 24, Anion Gap 8, Blood Urea Nitrogen 18, Creatinine 0.7, Estimat Glomerular Filtration Rate , Glucose Level 92, Calcium Level 7.5L, Magnesium Level 1.8, Total Bilirubin 0.7, Aspartate Amino Transf ( AST/SGOT) 19, Alanine Aminotransferase (ALT/SGPT) 9L, Alkaline Phosphatase 73, Pro-B-Type Natriuretic Peptide 3294H, Total Protein 6.1L, Albumin 1.8L, Globulin 4.3, Albumin/Globulin Ratio 0.4L Current Medications Medications (Trade) Dose Ordered Sig/Marge Route PRN Reason Start Time Stop Time Status Last Admin Dose Admin Acetaminophen (Tylenol) 650 mg Q6H PRN ORAL Mild Pain/Temp > 100.5 01/21/19 13:00 02/20/19 12:59 01/22/19 17:46 Ascorbic Acid (Vitamin C) 250 mg TWICE A DAY ORAL 01/26/19 09:00 02/25/19 08:59 01/26/19 08:32 Clonidine HCl (Catapres Tab) 0.1 mg Q4H PRN ORAL For High Blood Pressure 01/24/19 01:45 02/23/19 01:44 01/24/19 01:37 Clopidogrel Bisulfate (Plavix) 75 mg DAILY ORAL 01/21/19 09:00 02/20/19 08:59 01/26/19 08:32 Docusate Sodium (Colace) 100 mg TWICE A DAY ORAL 01/21/19 18:00 02/20/19 17:59 01/26/19 08:32 Folic Acid (Folate) 1 mg DAILY ORAL 01/22/19 09:00 02/21/19 08:59 01/26/19 08:33 Heparin Sodium (Porcine) (Heparin 5000 units/ml) 5,000 units EVERY 8 HOURS SUBQ 01/21/19 06:00 02/20/19 05:59 01/26/19 13:11 Iron Sucrose 100 mg/Sodium Chloride 60 ml @ 240 mls/hr BEDTIME IV 01/22/19 21:00 01/26/19 21:14 01/25/19 21:39 Lisinopril (Prinivil) 20 mg DAILY ORAL 01/21/19 09:00 02/20/19 08:59 01/26/19 08:32 Lorazepam (Ativan) 1 mg Q6H PRN ORAL For Anxiety 01/21/19 23:30 01/28/19 23:29 Mirtazapine (Remeron) 7.5 mg BEDTIME ORAL 01/22/19 21:00 02/21/19 20:59 01/25/19 21:40 Multivitamins (Multivitamins) 1 tab DAILY ORAL 01/26/19 09:00 02/25/19 08:59 01/26/19 08:32 Pantoprazole (Protonix) 40 mg EVERY 12 HOURS IVP 01/26/19 00:40 02/25/19 00:39 01/26/19 08:33 Jus Patel MD Jan 26, 2019 14:02
[2019-01-26 16:00] VITALS: BP 145/74
--- NOTE | 2019-01-26 17:32 | General Progress Note ---
Assessment/Plan Status: stable, progressing Assessment/Plan: Assessment - Heme (+) Stools - anemia - skin breakdown - CAD - HTN - h/o CVA Recommendations - Transfuse PRN - PPI BID - agree with IV Fe - Elevate HOB - push po - conservative management - GI endoscopy if bleeding continues Subjective Allergies: Coded Allergies: PENICILLINS (Verified Allergy, Mild, 04/21/10) Uncoded Allergies: SEAFOOD (Allergy, Mild, 04/21/10) Subjective above noted NAD tolerating PO per charge machine operator, no family for this patient Objective Last 24 Hour Vital Signs Date Time Temp Pulse Resp B/P (MAP) Pulse Ox O2 Delivery O2 Flow Rate FiO2 01/26/19 16:00 97.0 96 19 145/74 (97) 99 01/26/19 12:00 97.5 102 15 149/96 (113) 95 01/26/19 10:17 Room Air 01/26/19 08:32 159/80 01/26/19 08:20 Room Air 01/26/19 08:00 98.0 65 12 159/80 (106) 99 01/26/19 04:00 97.9 65 17 153/81 (105) 99 01/26/19 00:00 98.5 96 19 144/87 (106) 98 96 01/25/19 21:00 Room Air 01/25/19 20:00 97.9 88 18 141/67 (91) 98 88 01/25/19 19:59 103 18 99 Room Air 21 01/25/19 19:49 104 18 98 Room Air 21 Intake and Output 01/25/19 01/26/19 18:59 06:59 Intake Total 600 ml 240 ml Output Total 500 ml Balance 600 ml -260 ml IV Total 100 ml 240 ml Blood Product 500 ml Output Urine Total 500 ml # Bowel Movements 2 Laboratory Tests 01/26/19 05:48: White Blood Count 13.1H, Red Blood Count 3.34L, Hemoglobin 10.1#L, Hematocrit 30.2#L, Mean Corpuscular Volume 90, Mean Corpuscular Hemoglobin 30.3, Mean Corpuscular Hemoglobin Concent 33.5, Red Cell Distribution Width 15.9H, Platelet Count 358, Mean Platelet Volume 4.8L, Neutrophils (%) (Auto) 72.8, Lymphocytes (%) (Auto) 14.5L, Monocytes (%) (Auto) 5.6, Eosinophils (%) (Auto) 6.0H, Basophils (%) (Auto) 1.1, Sodium Level 139, Potassium Level 3.6, Chloride Level 107, Carbon Dioxide Level 24, Anion Gap 8, Blood Urea Nitrogen 18, Creatinine 0.7, Estimat Glomerular Filtration Rate , Glucose Level 92, Calcium Level 7.5L, Magnesium Level 1.8, Total Bilirubin 0.7, Aspartate Amino Transf ( AST/SGOT) 19, Alanine Aminotransferase (ALT/SGPT) 9L, Alkaline Phosphatase 73, Pro-B-Type Natriuretic Peptide 3294H, Total Protein 6.1L, Albumin 1.8L, Globulin 4.3, Albumin/Globulin Ratio 0.4L Height (Feet): 5 Height (Inches): 5.00 Weight (Pounds): 164 Objective Elderly AA woman NCAT supple CTA RR abd Marjorie Bhatia ND, MD Jan 26, 2019 17:32
[2019-01-26] MEDS ORDERED: Tubing IV Blood Pump IV ONE (17:59)
[2019-01-26] MEDS ORDERED: NS 275ml ONE ×2 (17:59)
[2019-01-26] MEDS ORDERED: Tubing IV Secondary IV ONE (17:59)
--- NOTE | 2019-01-26 21:02 | Progress Note ---
DATE: 01/26/2019 CARDIOLOGY PROGRESS NOTE SUBJECTIVE: The patient is tolerating diet. No nausea or vomiting. She remains on proton-pump inhibitor. OBJECTIVE: VITAL SIGNS: Blood pressure 149/96, pulse 102, respirations 15. NECK: Supple. Jugular venous pressure normal. LUNGS: Clear. CARDIAC: Regular rate and rhythm. Normal S1, S2 with a fourth heart sound. EXTREMITIES: Poor skin turgor and trace edema. LABORATORY DATA: White count 13, hemoglobin 10, potassium 3.6, magnesium 1.8. Albumin 1.8. IMPRESSION: 1. UTI with sepsis, status post treatment. 2. Hypomagnesemia, replaced. 3. Chronic anemia. 4. Hemoccult-positive stool. 5. Iron-deficiency. 6. Severe protein-calorie malnutrition. 7. Acute on chronic diastolic congestive heart failure. 8. Cellulitis of lower extremities with superficial wounds. PLAN: 1. Advance anti-failure regimen to include beta juan f and additional angiotensin-converting enzyme inhibitor therapy. 2. Transition from IV to oral medications. 3. Hold aspirin, but we will continue Plavix for peripheral artery insufficiency. 4. Continue wound care. James Archibald M.D. DR: ABBIE JOB#: [id number] CC:
--- NOTE | 2019-01-27 04:15 | Progress Note ---
DATE: 01/26/2019 SUBJECTIVE: The patient is calm. No behavior issues noted. Forgetful. She is having cognitive impairment. She is unable to understand, process, or communicate rationally. The patient is awaiting placement . MENTAL STATUS EXAMINATION: The patient is alert and oriented times self and place. Mood is neutral. Affect is constricted. Congruent with mood. Thought process is concrete. Thought content, no suicidal or homicidal ideation. ASSESSMENT: 1. Dementia. 2. Depression. PLAN: 1. The patient will continue current medication. 2. Provide the patient with reality orientation and supportive therapy. Lela Crawford M.D. DR: Rebeccag JOB#: [id number] CC:
--- NOTE | 2019-01-27 11:01 | Discharge Summary ---
Discharge Summary Discharge Summary _ DATE OF ADMISSION: 03/22/2018 DATE OF DISCHARGE: 01/26/2019 DISCHARGED BY: Dr. Hughes REASON FOR ADMISSION: 88 years old female with past medical history of CVA with left-sided sided weakness, chronic DVT left lower extremity, hypertension, right eye blindness, presented to emergency department complaining of pain and left foot ulcer. Patient was not a good historian . Patient denied chest pain , shortness of breath, and palpitations. Patient denied headache or dizziness. Patient denied tingling or numbness. Clinical examination revealed multiple pressure injuries present on admission, including left foot ulcer . Laboratory work-up revealed no leukocytosis ,hemoglobin 8.9 ,hematocrit 29.3 , platelet count 443. Stable electrolytes and renal parameters. Glucose 124. Troponin negative , pro BNP 1857. Albumin 1.8. Urinalysis revealed pyuria and many bacteria, +3 leukocyte esterase. 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 X-ray of the left foot revealed no acute process. Osteoporosis. Posterior heel soft tissue ulcer. Chest x-ray demonstrated mild interstitial congestion and equivocal right infrahilar airspace opacity. Cardiomegaly. Patient subsequently admitted for further management. CONSULTANTS: engineering associate pulmonary Dr. Patel ID specialist Dr. Murphy GI specialist Dr. Hyde surgery Dr. Obrien psychiatrist HOSPITAL COURSE: Patient admitted and started on empiric antibiotics as per ID specialist recommendation. Blood cultures were negative. Urine culture revealed Enterococcus faecalis. Left foot MRI revealed no evidence of acute osteomyelitis. Left ankle MRI revealed also revealed no evidence of acute osteomyelitis or abscess. Patient completed treatment with antibiotics while in the hospital. Home Service Demonstrator followed and closely reviewed imaging . Follow-up chest x-ray revealed no acute process , borderline cardiomegaly. Per retail brand ambassador, there was no evidence of pneumonia. DVT prophylaxis provided. Supplemental oxygen titrated and provided need to keep pulse oximetry above 92% . Pulmonary toilet with bronchodilator was on board as needed. Surgeon followed. Patient presented with multiply pressure injuries on admission, including right buttock stage III, sacrococcyx stage III, left ischium stage III, right thigh stage III, right foot stage III, left first metatarsal stage III, left heel stage III. Wound care provided as per surgeon recommendation. Continue wound care at the facility. Arterial duplex bilateral lower extremity revealed moderate to severe ischemia at rest. Outboard Motorboat Operator followed . Echocardiogram revealed preserved ejection fraction of 60 to 65% with no evidence of left ventricular hypertrophy. No evidence of pericardial effusion. Right ventricular systolic pressure of 15. Lipid panel was stable. TSH was in range. DVT prophylaxis provided. Antiplatelet therapy provided. Lipid panel was stable. Anti-failure regimen was advanced to include beta-juan f and angiotensin receptor juan f. Volumes and cardiorenal parameters were closely monitored. Blood pressure was closely monitored and managed with current regimen. Blood pressure improved. GI prophylaxis provided. Renal parameters and electrolytes were closely monitored, electrolytes corrected as needed. Hypomagnesemia corrected. Magnesium 1.8 after correction. Stool for occult blood was positive. Hemoglobin and hematocrit were closely monitored with goal to keep hemoglobin above 7. Patient was transfused with 2 units of packed red blood cells for hemoglobin 6.8. Anemia work-up was consistent with anemia of iron deficiency and chronic disease. Patient started on IV Venofer. Also noted low folic acid. Patient started on folic acid supplement. Prior to discharge hemoglobin 10.1, hematocrit 30.2. GI specialist recommended conservative management. Consider GI endoscopy if bleeding continues. Protein supplements implemented in plan of care as per signal tower director recommendation. Psychiatry followed and diagnosed patient with depressant, dementia and anxiety. Psychiatric medication regimen was optimized. Reality orientation and supportive therapy provided. Patient clinically stabilized and was ready for transfer to [facility] for continuation of care. FINAL DIAGNOSES: Enterococci UTI, status post treatment Left foot ulcer st 3, present on admission / no evidence of acute osteomyelitis Cellulitis Multiple pressure ulcers , present on admission , stage 3 History of CVA with left side hemiparesis Chronic DVT LLE Peripheral arterial disease with moderate ischemia Anemia of iron deficiency and chronic disease, multifactorial Folate deficiency Hemoccult positive stool Severe protein calorie malnutrition Hypertensive heart disease with episodes of labile hypertension Acute on chronic diastolic congestive heart failure Dementia Anxiety disorder Depression DISCHARGE MEDICATIONS: See Medication Reconciliation list. DISCHARGE INSTRUCTIONS: Patient was discharged to the [facility] facility. Follow up with medical doctor at the facility. I have been assigned to dictate discharge summary for this account. I was not involved in the patient's management. Bree Montes NP Jan 27, 2019 11:01
== END 2019-01-26 18:00 | DRG 592 ==
LOC: EDBD 12:24 → EMR 13:40 → 4E 16:11 → EDBEDREQ 20:20
PROC: 30233N1 Transfusion of Nonautologous Red Blood Cells into Peripheral Vein, Percutaneous Approach (ICD-10-PCS; principal; 2019-01-25)
DX: L89.893 Pressure ulcer of other site, stage 3 (principal); J18.9 Pneumonia, unspecified organism; E43 Unspecified severe protein-calorie malnutrition; I50.33 Acute on chronic diastolic (congestive) heart failure; N39.0 Urinary tract infection, site not specified; I69.354 Hemiplegia and hemiparesis following cerebral infarction affecting left non-dominant side; I82.502 Chronic embolism and thrombosis of unspecified deep veins of left lower extremity; L89.523 Pressure ulcer of left ankle, stage 3; L89.323 Pressure ulcer of left buttock, stage 3; L89.313 Pressure ulcer of right buttock, stage 3; I11.0 Hypertensive heart disease with heart failure; H54.61 Unqualified visual loss, right eye, normal vision left eye; L89.153 Pressure ulcer of sacral region, stage 3; L89.623 Pressure ulcer of left heel, stage 3; B95.2 Enterococcus as the cause of diseases classified elsewhere; D63.8 Anemia in other chronic diseases classified elsewhere; D50.9 Iron deficiency anemia, unspecified; I73.9 Peripheral vascular disease, unspecified; F03.90 Unspecified dementia, unspecified severity, without behavioral disturbance, psychotic disturbance, mood disturbance, and anxiety; F41.9 Anxiety disorder, unspecified; F32.9 Major depressive disorder, single episode, unspecified; M81.0 Age-related osteoporosis without current pathological fracture
CPT/HCPCS: 36415; 71045; 80053; 80061; 80202; 81003; 82270; 82330; 82550; 82607; 82746; 83036; 83540; 83550; 83605; 83735; 83880; 84443; 84484; 85007; 85025; 85610; 85730; 86850; 86900; 86901; 86920; 87040; 87081; 87086; 87181; 93005; 93306; 93925; 93971; 94640; 94664; 96365; 96366; 96368; 99285; J7620

== ENCOUNTER 2019-04-17 00:20 | Inpatient (IN) | payer MEDICARE, OTHER ==
[~2019-04-17] VITALS: Ht 167.6 cm; Wt 72.6 kg
[2019-04-17 00:25] VITALS: BP 142/67
[2019-04-17] MEDS ORDERED: Ipratropium 0.02% Inh Soln 2.5ml UD HHN ONE (01:15)
[2019-04-17] MEDS ORDERED: Albuterol ud Inhalation HHN ONE (01:15)
[2019-04-17 04:25] VITALS: BP 148/78
[2019-04-17 05:44] LABS: INR 1.1 (0.9-1.1)
[2019-04-17 05:44] LABS: BASOPHILS % (AUTO) 1.5 % (0.0-2.0); EOSINOPHILS % (AUTO) 2.5 % (0.0-3.0); HEMATOCRIT 29.3 % (37.0-47.0); HEMOGLOBIN 9.2 G/DL (12.0-16.0); MEAN CORPUSCULAR VOLUME 99 FL (80-99); MONOCYTES % (AUTO) 6.9 % (1.0-10.0); NEUTROPHILS % (AUTO) 59.1 % (45.0-75.0); PLATELET COUNT 372 K/UL (150-450); RED BLOOD COUNT 2.95 M/UL (4.20-5.40); RED CELL DISTRIBUTION WIDTH 16.8 % (11.6-14.8); WHITE BLOOD COUNT 7.3 K/UL (4.8-10.8)
[2019-04-17 05:57] LABS: ALANINE AMINOTRANSFERASE 9 U/L (12-78); ALBUMIN 1.8 G/DL (3.4-5.0); ALBUMIN/GLOBULIN RATIO 0.3 (1.0-2.7); ALKALINE PHOSPHATASE 112 U/L (46-116); ANION GAP 5 mmol/L (5-15); ASPARTATE AMINO TRANSFERASE 17 U/L (15-37); BILIRUBIN,TOTAL 0.4 MG/DL (0.2-1.0); BLOOD UREA NITROGEN 15 mg/dL (7-18); CALCIUM 8.8 MG/DL (8.5-10.1); CARBON DIOXIDE 34 MMOL/L (21-32); CHLORIDE 108 MMOL/L (98-107); CREATININE 0.7 MG/DL (0.55-1.30); SODIUM 146 MMOL/L (136-145)
--- NOTE | 2019-04-17 06:36 | Emergency Room Report ---
History of Present Illness General Chief Complaint: General Complaint Source: Patient, Medical Record Present Illness HPI Is an 88-year-old pleasantly demented female with a history of hypertension and CHF. She presents with chief complaint of dizziness and back pain. Patient told me that her butt hurts. Supposed to be ongoing for 3 days. She denies any symptoms. No fever chills but no nausea no vomiting but no chest pain. Here I noted that she has a very wet cough. Patient does not know how long she has a problem. She does complain of being short of breath. Allergies: Coded Allergies: PENICILLINS (Verified Allergy, Mild, 04/21/10) Uncoded Allergies: SEAFOOD (Allergy, Mild, 04/21/10) Patient History Past Medical History: see triage record, old chart reviewed, HTN, CHF, dementia Past Surgical History: other Pertinent Family History: none Social History: Denies: smoking Last Menstrual Period: n/a Now: No Immunizations: other Reviewed Nursing Documentation: PMH: Agreed; PSxH: Agreed Nursing Documentation-PMH Past Medical History: No History, Except For Hx Cardiac Problems: Yes - Heart failure, PRESSURE ULCER Hx Hypertension: Yes Hx Cancer: No Hx Gastrointestinal Problems: No Hx Neurological Problems: Yes Hx Cerebrovascular Accident: Yes - left sided weakness Review of Systems Eye: Denies: eye pain, blurred vision ENT: Denies: ear pain, nose congestion, throat swelling Respiratory: Reports: cough; Denies: shortness of breath Cardiovascular: Denies: chest pain, palpitations Gastrointestinal: Denies: abdominal pain, diarrhea, nausea, vomiting Musculoskeletal: Reports: back pain; Denies: joint pain Skin: Denies: rash Neurological: Denies: headache, numbness Endocrine: Denies: increased thirst, increased urine Hematologic/Lymphatic: Denies: easy bruising All Other Systems: negative except mentioned in HPI Physical Exam Vital Signs Date Time Temp Pulse Resp B/P (MAP) Pulse Ox O2 Delivery O2 Flow Rate FiO2 04/17/19 00:13 97.2 82 18 142/67 (92) 98 Room Air Vitals unremarkable Sp02 EP Interpretation: reviewed, normal General Appearance: well appearing, no apparent distress, alert Head: normocephalic, atraumatic Eyes: bilateral eye PERRL, bilateral eye EOMI ENT: hearing grossly normal, normal pharynx Neck: full range of motion, supple, no meningismus Respiratory: chest non-tender, lungs clear, normal breath sounds Cardiovascular #1: no murmur, irregularly irregular Gastrointestinal: normal bowel sounds, non tender, no mass, no organomegaly, no bruit, non-distended Musculoskeletal: back normal, normal range of motion, gait/station normal Psychiatric: mood/affect normal Medical Decision Making Diagnostic Impression: Primary Impression: CHF (congestive heart failure) Qualified Codes: I50.9 - Heart failure, unspecified Additional Impression: Atrial fibrillation, chronic ER Course This patient presents with back pain and dizziness and noted to be in CHF. Troponins negative. BNP is elevated. Patient has no respiratory distress. She given Lasix and diuresed well. Urinalysis is pending to rule out DVT. I discussed the case with Dr. Archibald who will admit. EKG Diagnostic Results Rate: normal Rhythm: other - afib Rhythm Strip Diag. Results EP Interpretation: yes Rate: 88 Rhythm: no PVC's, no ectopy, other - afib Chest X-Ray Diagnostic Results Chest X-Ray Diagnostic Results : Chest X-Ray Ordered: Yes # of Views/Limited/Complete: 1 View Indication: Shortness of Breath EP Interpretation: Yes Interpretation: no consolidation, no pneumothorax, other - cm with chf, and effusion Impression: Other - chf, pleural effusion Electronically Signed by: Esvin Kuo MD Last Vital Signs Date Time Temp Pulse Resp B/P (MAP) Pulse Ox O2 Delivery O2 Flow Rate FiO2 04/17/19 01:17 92 18 100 Room Air 91 18 98 04/17/19 00:13 97.2 142/67 (92) Status: improved Disposition: ADMITTED INPATIENT Condition: Serious Scripts Unable to Obtain Active Prescriptions or Reported Meds Referrals: James Archibald MD (PCP) Esvin Kuo MD Apr 17, 2019 06:36
[2019-04-17 06:45] LABS: APPEARANCE,URINE CLEAR; BILIRUBIN, URINE NEGATIVE (NEGATIVE); COLOR,URINE PALE YELLOW; GLUCOSE, URINE (UA) NEGATIVE (NEGATIVE); KETONES,URINE NEGATIVE (NEGATIVE); LEUKOCYTE ESTERASE ,URINE 1+ (NEGATIVE); NITRITE,URINE NEGATIVE (NEGATIVE); PH,URINE 6.5 (4.5-8.0); PROTEIN,URINE NEGATIVE (NEGATIVE); UROBILINOGEN,URINE NORMAL MG/DL (0.0-1.0)
[2019-04-17 08:00] VITALS: BP 136/70
[2019-04-17] MEDS ORDERED: Heparin 5000 units/ml inj SUBQ SCH (09:00)
[2019-04-17] MEDS: Lisinopril 20mg tab ORAL SCH (10:30)
[2019-04-17] MEDS: Docusate 100mg cap ORAL SCH ×2 (10:30→18:00)
[2019-04-17] MEDS: cefTRIAXone 1 GM in D5W 55 ML IVPB SCH (11:01)
[2019-04-17 12:25] VITALS: BP 148/94
--- NOTE | 2019-04-17 14:18 | Consultation ---
History of Present Illness General Date patient seen: Apr 17, 2019 Chief Complaint: General Complaint Present Illness HPI 88 year old female with multiple medical comorbidities [place] [facility] [place] of [place] c/o pain in buttock area / sacrum. Admitted for care and management. abnormal labs. surgery called to evaluate and assist with care. patient seen, chart reviewed, patient examined. no n/v/f/c. multiple skin changes noted. Allergies: Coded Allergies: PENICILLINS (Verified Allergy, Mild, 04/21/10) Uncoded Allergies: SEAFOOD (Allergy, Mild, 04/21/10) Medication History Unable to Obtain Active Prescriptions or Reported Meds Patient History Limited by: medical condition History Provided By: Patient, Medical Record, PMD Healthcare decision maker Resuscitation status Full Code Advanced Directive on File No Past Medical/Surgical History Past Medical/Surgical History: (1) Cellulitis (2) Pedal edema (3) Chronic deep vein thrombosis (DVT) (4) Anemia (5) UTI (urinary tract infection) (6) CVA (cerebral vascular accident) (7) Atrial fibrillation, chronic (8) CHF (congestive heart failure) Review of Systems All Other Systems: negative except mentioned in HPI Physical Exam General Appearance: no apparent distress Lines, tubes and drains: peripheral HEENT: mucous membranes moist Neck: normal inspection Respiratory/Chest: no respiratory distress, no accessory muscle use, decreased breath sounds Cardiovascular/Chest: normal rate, regular rhythm Abdomen: soft, no organomegaly, no mass Extremities: non-tender, no cyanosis, slow capillary refill, moderate edema Skin Exam: warm/dry Neurologic: alert, responsive Last 24 Hour Vital Signs Date Time Temp Pulse Resp B/P (MAP) Pulse Ox O2 Delivery O2 Flow Rate FiO2 04/17/19 12:31 Room Air 04/17/19 12:25 97.1 103 148/94 (112) 04/17/19 11:59 85 04/17/19 10:30 95 134/76 04/17/19 10:30 136/70 04/17/19 08:17 103 04/17/19 08:05 98.1 88 18 148/78 100 Room Air 88 04/17/19 08:00 98.0 98 136/70 (92) 04/17/19 04:25 98.1 88 18 148/78 100 Room Air 88 04/17/19 01:17 92 18 100 Room Air 91 18 98 04/17/19 00:25 82 18 Room Air 04/17/19 00:25 97.2 87 18 142/67 98 Room Air 04/17/19 00:13 97.2 82 18 142/67 (92) 98 Room Air Intake and Output 04/16/19 04/17/19 19:00 07:00 # Voids 2 Laboratory Tests Test 04/17/19 01:50 04/17/19 03:10 04/17/19 05:52 White Blood Count 7.3 K/UL (4.8-10.8) Red Blood Count 2.95 M/UL (4.20-5.40) L Hemoglobin 9.2 G/DL (12.0-16.0) L Hematocrit 29.3 % (37.0-47.0) L Mean Corpuscular Volume 99 FL (80-99) Mean Corpuscular Hemoglobin 31.3 PG (27.0-31.0) H Mean Corpuscular Hemoglobin Concent 31.5 G/DL (32.0-36.0) L Red Cell Distribution Width 16.8 % (11.6-14.8) H Platelet Count 372 K/UL (150-450) Mean Platelet Volume 4.8 FL (6.5-10.1) L Neutrophils (%) (Auto) 59.1 % (45.0-75.0) Lymphocytes (%) (Auto) 30.0 % (20.0-45.0) Monocytes (%) (Auto) 6.9 % (1.0-10.0) Eosinophils (%) (Auto) 2.5 % (0.0-3.0) Basophils (%) (Auto) 1.5 % (0.0-2.0) Sodium Level 146 MMOL/L (136-145) H Potassium Level 4.0 MMOL/L (3.5-5.1) Chloride Level 108 MMOL/L (98-107) H Carbon Dioxide Level 34 MMOL/L (21-32) H Anion Gap 5 mmol/L (5-15) Blood Urea Nitrogen 15 mg/dL (7-18) Creatinine 0.7 MG/DL (0.55-1.30) Estimat Glomerular Filtration Rate > 60 mL/min (>60) Glucose Level 108 MG/DL (74-106) H Calcium Level 8.8 MG/DL (8.5-10.1) Total Bilirubin 0.4 MG/DL (0.2-1.0) Aspartate Amino Transf (AST/SGOT) 17 U/L (15-37) Alanine Aminotransferase (ALT/SGPT) 9 U/L (12-78) L Alkaline Phosphatase 112 U/L (46-116) Troponin I 0.012 ng/mL (0.000-0.056) Pro-B-Type Natriuretic Peptide 92344 pg/mL (0-125) H Total Protein 7.5 G/DL (6.4-8.2) Albumin 1.8 G/DL (3.4-5.0) L Globulin 5.7 g/dL Albumin/Globulin Ratio 0.3 (1.0-2.7) L Prothrombin Time 11.3 SEC (9.30-11.50) Prothromb Time International Ratio 1.1 (0.9-1.1) Activated Partial Thromboplast Time 33 SEC (23-33) Urine Color Pale yellow Urine Appearance Clear Urine pH 6.5 (4.5-8.0) Urine Specific [place] 1.005 (1.005-1.035) Urine Protein Negative (NEGATIVE) Urine Glucose (UA) Negative (NEGATIVE) Urine Ketones Negative (NEGATIVE) Urine Blood Negative (NEGATIVE) Urine Nitrite Negative (NEGATIVE) Urine Bilirubin Negative (NEGATIVE) Urine Urobilinogen Normal MG/DL (0.0-1.0) Urine Leukocyte Esterase 1+ (NEGATIVE) H Urine RBC 0-2 /HPF (0 - 2) Urine WBC 2-4 /HPF (0 - 2) Urine Squamous Epithelial Cells Occasional /LPF Urine Bacteria Occasional /HPF (NONE) Height (Feet): 5 Height (Inches): 6.00 Weight (Pounds): 160 Medications Current Medications Medications (Trade) Dose Ordered Sig/Marge Route PRN Reason Start Time Stop Time Status Last Admin Dose Admin Acetaminophen (Tylenol) 650 mg Q4H PRN ORAL Mild Pain/Temp > 100.5 04/17/19 08:00 05/17/19 07:59 Ceftriaxone Sodium 1 gm/ Dextrose 55 ml @ 110 mls/hr Q24H IVPB 04/17/19 09:00 04/24/19 08:59 04/17/19 11:01 Clopidogrel Bisulfate (Plavix) 75 mg DAILY ORAL 04/17/19 09:00 05/17/19 08:59 04/17/19 10:29 Docusate Sodium (Colace) 100 mg TWICE A DAY ORAL 04/17/19 09:00 05/17/19 08:59 04/17/19 10:30 Folic Acid (Folate) 1 mg DAILY ORAL 04/17/19 13:00 05/17/19 12:59 04/17/19 13:17 Furosemide (Lasix) 40 mg DAILY IV 04/17/19 09:00 05/17/19 08:59 04/17/19 10:31 Heparin Sodium (Porcine) (Heparin 5000 units/ml) 5,000 units EVERY 12 HOURS SUBQ 04/17/19 09:00 05/17/19 08:59 04/17/19 10:31 Lisinopril (PriniviL) 20 mg DAILY ORAL 04/17/19 09:00 05/17/19 08:59 04/17/19 10:30 Metoprolol Tartrate (Lopressor) 25 mg Q12HR ORAL 04/17/19 09:00 05/17/19 08:59 04/17/19 10:30 Ondansetron HCl (Zofran) 4 mg Q6H PRN IVP Nausea & Vomiting 04/17/19 08:00 05/17/19 07:59 Assessment/Plan Problem List: (1) Decubitus skin ulcer Assessment & Plan: patient presented with multiple skin issues noted to have edema in bilateral lower extremities. noted to have historic sacral and buttock wounds healed noted to have left leg skin abrasions. likely edema and less likely cellulitis of extremity no n/v/f/c no active drainage mild discomfort on palpation no acute surgical intervention planned diet as tolerated care orders place thank you will follow with recs ICD Codes: L89.90 - Pressure ulcer of unspecified site, unspecified stage SNOMED: 657780960 (2) Atrial fibrillation, chronic ICD Codes: I48.20 - Chronic atrial fibrillation, unspecified SNOMED: 812112676 (3) Anemia ICD Codes: D64.9 - Anemia, unspecified SNOMED: 709500516 (4) Cellulitis Assessment & Plan: as above ICD Codes: L03.90 - Cellulitis, unspecified SNOMED: 478640821 (5) CHF (congestive heart failure) ICD Codes: I50.9 - Heart failure, unspecified SNOMED: 35648515 Qualifiers: Qualified Codes: I50.9 - Heart failure, unspecified (6) UTI (urinary tract infection) ICD Codes: N39.0 - Urinary tract infection, site not specified SNOMED: 56657988 (7) CVA (cerebral vascular accident) ICD Codes: I63.9 - Cerebral infarction, unspecified SNOMED: 879831070 (8) Pedal edema ICD Codes: R60.0 - Localized edema SNOMED: 201853972 (9) Chronic deep vein thrombosis (DVT) ICD Codes: I82.509 - Chronic embolism and thrombosis of unspecified deep veins of unspecified lower extremity SNOMED: 75821394850543095 Lakhwinder Dai Apr 17, 2019 14:18
--- NOTE | 2019-04-17 15:05 | Diagnostic Imaging Report ---
EXAM: XR Chest, 1 View CLINICAL HISTORY: SOB TECHNIQUE: Frontal view of the chest. COMPARISON: 01/22/19 FINDINGS: Degree of cardiac enlargement is similar to prior study. Tortuosity/ectasia of the thoracic aorta is similar. Indistinct bilateral pulmonary vessels that are at least mildly engorged consistent with pulmonary vascular congestion. Bilateral perihilar predominant interstitial alveolar densities likely pulmonary edema. More focal ill- defined airspace disease in the right lung base indeterminate for pneumonia. Negative for pneumothorax. Bilateral pleural effusions.
--- NOTE | 2019-04-17 17:12 | Diagnostic Imaging Report ---
EXAM: US Duplex Bilateral Lower Extremities Veins CLINICAL HISTORY: DVT TECHNIQUE: Real-time duplex ultrasound scan of the bilateral lower extremity veins integrating B-mode two-dimensional vascular structure, Doppler spectral analysis, color flow Doppler imaging and compression. COMPARISON: No relevant prior studies available. FINDINGS: Right deep veins: Positive for DVT in right CFV. Right superficial veins: Unremarkable. No thrombus in the visualized right great saphenous vein. Left deep veins: Unremarkable. No DVT in the left common femoral, femoral, proximal deep femoral or popliteal veins. The veins demonstrate normal color flow, are normally compressible, with normal phasic flow and/or augmentation response. Left superficial veins: Unremarkable. No thrombus in the visualized left great saphenous vein. Soft tissues: No acute findings. IMPRESSION: Positive for DVT in right CFV. <MYCVCSECTION> Communications: 04/17/19 17:39 Verify Receipt Verified receipt with 2E LYNN Dodd, given to LYNN Epstein on 04/17 17:39 (-08:00)
[2019-04-17 20:00] VITALS: BP 127/72
[2019-04-17] MEDS: Enoxaparin 60mg Inj SUBQ SCH (22:12)
[2019-04-18] VITALS: BP 137/90
[2019-04-18 04:00] VITALS: BP 139/76
--- NOTE | 2019-04-18 07:48 | General Progress Note ---
Assessment/Plan Problem List: (1) Toxic metabolic encephalopathy ICD Codes: G92 - Toxic encephalopathy SNOMED: 043583985 (2) Atrial fibrillation, chronic ICD Codes: I48.20 - Chronic atrial fibrillation, unspecified SNOMED: 092604005 (3) Anemia ICD Codes: D64.9 - Anemia, unspecified SNOMED: 692048877 (4) CHF (congestive heart failure) ICD Codes: I50.9 - Heart failure, unspecified SNOMED: 66468315 Qualifiers: Qualified Codes: I50.9 - Heart failure, unspecified Status: stable Assessment/Plan: iv lasix strict i and o monitor lytes swallow eval dvt/stress ulcer prophylaxis Subjective ROS Limited/Unobtainable: Yes Constitutional: Reports: malaise, weakness HEENT: Reports: no symptoms Cardiovascular: Reports: no symptoms Respiratory: Reports: no symptoms Gastrointestinal/Abdominal: Reports: no symptoms Genitourinary: Reports: no symptoms Neurologic/Psychiatric: Reports: no symptoms Endocrine: Reports: no symptoms Hematologic/Lymphatic: Reports: no symptoms Allergies: Coded Allergies: PENICILLINS (Verified Allergy, Mild, 04/21/10) Uncoded Allergies: SEAFOOD (Allergy, Mild, 04/21/10) All Systems: reviewed and negative except above Subjective no change. remains confused. on iv lasix. neg 100cc- ?accurate Objective Last 24 Hour Vital Signs Date Time Temp Pulse Resp B/P (MAP) Pulse Ox O2 Delivery O2 Flow Rate FiO2 04/18/19 04:00 98 04/18/19 04:00 97.7 88 20 139/76 (97) 98 04/18/19 00:00 102 04/18/19 00:00 97.5 103 19 137/90 (106) 97 04/17/19 22:12 93 127/72 04/17/19 21:00 Room Air 04/17/19 20:00 99 04/17/19 20:00 97.5 93 18 127/72 (90) 96 04/17/19 16:22 85 04/17/19 12:31 Room Air 04/17/19 12:25 97.1 103 148/94 (112) 04/17/19 11:59 85 04/17/19 10:30 95 134/76 04/17/19 10:30 136/70 04/17/19 08:17 103 04/17/19 08:05 98.1 88 18 148/78 100 Room Air 88 04/17/19 08:00 98.0 98 136/70 (92) Intake and Output 04/17/19 04/18/19 18:59 06:59 Intake Total 300 ml Output Total 400 ml Balance -100 ml Intake Oral 300 ml Output Urine Total 400 ml # Voids 3 # Bowel Movements 1 1 Laboratory Tests 04/18/19 06:45: Sodium Level [Pending], Potassium Level [Pending], Chloride Level [Pending], Carbon Dioxide Level [Pending], Blood Urea Nitrogen [Pending], Creatinine [ Pending], Estimat Glomerular Filtration Rate [Pending], Glucose Level [Pending] , Calcium Level [Pending], Magnesium Level [Pending], Iron Level [Pending], Unsaturated Iron Binding [Pending], Total Bilirubin [Pending], Aspartate Amino Transf (AST/SGOT) [Pending], Alanine Aminotransferase (ALT/SGPT) [Pending], Alkaline Phosphatase [Pending], C-Reactive Protein, Quantitative [Pending], Total Protein [Pending], Albumin [Pending], Globulin [Pending], Vitamin B12 Level [Pending], Vitamin D 25-Hydroxy [Pending], 25-Hydroxy Vitamin D2 [Pending] , 25-Hydroxy Vitamin D3 [Pending], Folate [Pending], Thyroid Stimulating Hormone (TSH) [Pending] Height (Feet): 5 Height (Inches): 6.00 Weight (Pounds): 160 General Appearance: WD/WN, lethargic, confused Neck: supple Cardiovascular: regular rhythm Respiratory/Chest: lungs clear, normal breath sounds, no respiratory distress, no accessory muscle use Abdomen: normal bowel sounds, non tender, soft, no organomegaly Edema: mild edema Eloy Hughes MD Apr 18, 2019 07:48
[2019-04-18 07:56] LABS: BASOPHILS % (AUTO) 1.4 % (0.0-2.0); EOSINOPHILS % (AUTO) 3.6 % (0.0-3.0); HEMATOCRIT 29.5 % (37.0-47.0); HEMOGLOBIN 9.7 G/DL (12.0-16.0); LYMPHOCYTES % (AUTO) 29.9 % (20.0-45.0); MEAN CORPUSCULAR VOLUME 99 FL (80-99); MONOCYTES % (AUTO) 6.6 % (1.0-10.0); NEUTROPHILS % (AUTO) 58.6 % (45.0-75.0); PLATELET COUNT 367 K/UL (150-450); RED BLOOD COUNT 2.98 M/UL (4.20-5.40); RED CELL DISTRIBUTION WIDTH 16.5 % (11.6-14.8); WHITE BLOOD COUNT 6.1 K/UL (4.8-10.8)
[2019-04-18 08:00] VITALS: BP 143/56
[2019-04-18 08:05] LABS: ANION GAP 11 mmol/L (5-15); BLOOD UREA NITROGEN 15 mg/dL (7-18); CALCIUM 8.9 MG/DL (8.5-10.1); CARBON DIOXIDE 31 MMOL/L (21-32); CHLORIDE 105 MMOL/L (98-107); CREATININE 0.7 MG/DL (0.55-1.30); POTASSIUM 3.4 MMOL/L (3.5-5.1); SODIUM 147 MMOL/L (136-145)
[2019-04-18 08:17] LABS: ALANINE AMINOTRANSFERASE 11 U/L (12-78); ALBUMIN 1.7 G/DL (3.4-5.0); ALBUMIN/GLOBULIN RATIO 0.3 (1.0-2.7); ALKALINE PHOSPHATASE 93 U/L (46-116); ASPARTATE AMINO TRANSFERASE 18 U/L (15-37); BILIRUBIN,TOTAL 0.5 MG/DL (0.2-1.0)
[2019-04-18 08:39] LABS: % IRON SATURATION 39 % (15-50); IRON 37 ug/dL (50-175); TOTAL IRON BINDING CAPACITY 96 ug/dL (250-450)
[2019-04-18] MEDS: Docusate 100mg cap ORAL SCH ×2 (09:14→17:13)
[2019-04-18] MEDS: Lisinopril 20mg tab ORAL SCH ×2 (09:14→13:39)
[2019-04-18] MEDS: cefTRIAXone 1 GM in D5W 55 ML IVPB SCH (09:15)
[2019-04-18] MEDS: Enoxaparin 60mg Inj SUBQ SCH ×2 (09:16→21:54)
[2019-04-18 12:00] VITALS: BP_SYST 130; BP_SYST 161; BP_DIAS 62; BP_DIAS 70
--- NOTE | 2019-04-18 12:28 | Surgery Progress Note ---
Surgery Progress Note Subjective Additional Comments labs noted receiving lasix i&o Objective Last 24 Hour Vital Signs Date Time Temp Pulse Resp B/P (MAP) Pulse Ox O2 Delivery O2 Flow Rate FiO2 04/18/19 09:15 79 143/56 04/18/19 09:14 143/56 04/18/19 08:37 Room Air 04/18/19 08:00 78 04/18/19 08:00 96.7 79 18 143/56 (85) 93 04/18/19 04:00 98 04/18/19 04:00 97.7 88 20 139/76 (97) 98 04/18/19 00:00 102 04/18/19 00:00 97.5 103 19 137/90 (106) 97 04/17/19 22:12 93 127/72 04/17/19 21:00 Room Air 04/17/19 20:00 99 04/17/19 20:00 97.5 93 18 127/72 (90) 96 04/17/19 16:22 85 04/17/19 12:31 Room Air I&O Intake and Output 04/17/19 04/18/19 19:00 07:00 Intake Total 300 ml Output Total 400 ml Balance -100 ml Intake Oral 300 ml Output Urine Total 400 ml # Voids 3 # Bowel Movements 1 1 Dressing: other Wound: other Drains: other Cardiovascular: RSR Respiratory: decreased breath sounds Abdomen: soft, present bowel sounds Extremities: no cyanosis Laboratory Tests Test 04/18/19 04:00 04/18/19 06:45 Erythrocyte Sedimentation Rate 115 MM/HR (0-30) H White Blood Count 6.1 K/UL (4.8-10.8) Red Blood Count 2.98 M/UL (4.20-5.40) L Hemoglobin 9.7 G/DL (12.0-16.0) L Hematocrit 29.5 % (37.0-47.0) L Mean Corpuscular Volume 99 FL (80-99) Mean Corpuscular Hemoglobin 32.4 PG (27.0-31.0) H Mean Corpuscular Hemoglobin Concent 32.7 G/DL (32.0-36.0) Red Cell Distribution Width 16.5 % (11.6-14.8) H Platelet Count 367 K/UL (150-450) Mean Platelet Volume 5.2 FL (6.5-10.1) L Neutrophils (%) (Auto) 58.6 % (45.0-75.0) Lymphocytes (%) (Auto) 29.9 % (20.0-45.0) Monocytes (%) (Auto) 6.6 % (1.0-10.0) Eosinophils (%) (Auto) 3.6 % (0.0-3.0) H Basophils (%) (Auto) 1.4 % (0.0-2.0) Sodium Level 147 MMOL/L (136-145) H Potassium Level 3.4 MMOL/L (3.5-5.1) L Chloride Level 105 MMOL/L (98-107) Carbon Dioxide Level 31 MMOL/L (21-32) Anion Gap 11 mmol/L (5-15) Blood Urea Nitrogen 15 mg/dL (7-18) Creatinine 0.7 MG/DL (0.55-1.30) Estimat Glomerular Filtration Rate > 60 mL/min (>60) Glucose Level 84 MG/DL (74-106) Calcium Level 8.9 MG/DL (8.5-10.1) Magnesium Level 1.6 MG/DL (1.8-2.4) L Iron Level 37 ug/dL (50-175) L Total Iron Binding Capacity 96 ug/dL (250-450) L Percent Iron Saturation 39 % (15-50) Unsaturated Iron Binding 59 ug/dL (112-346) L Total Bilirubin 0.5 MG/DL (0.2-1.0) Aspartate Amino Transf (AST/SGOT) 18 U/L (15-37) Alanine Aminotransferase (ALT/SGPT) 11 U/L (12-78) L Alkaline Phosphatase 93 U/L (46-116) C-Reactive Protein, Quantitative 6.8 mg/dL (0.00-0.90) H Total Protein 7.4 G/DL (6.4-8.2) Albumin 1.7 G/DL (3.4-5.0) L Globulin 5.7 g/dL Albumin/Globulin Ratio 0.3 (1.0-2.7) L Vitamin B12 Level 427 PG/ML (193-986) Vitamin D 25-Hydroxy Pending 25-Hydroxy Vitamin D2 Pending 25-Hydroxy Vitamin D3 Pending Folate 65.1 NG/ML (8.6-58.9) H Thyroid Stimulating Hormone (TSH) 3.118 uiU/mL (0.358-3.740) Plan Problems: (1) Decubitus skin ulcer Assessment & Plan: patient presented with multiple skin issues noted to have edema in bilateral lower extremities. noted to have historic sacral and buttock wounds healed noted to have left leg skin abrasions. likely edema and less likely cellulitis of extremity no n/v/f/c no active drainage mild discomfort on palpation no acute surgical intervention planned diet as tolerated care orders place thank you will follow with recs (2) Atrial fibrillation, chronic (3) Anemia (4) Cellulitis Assessment & Plan: as above (5) CHF (congestive heart failure) (6) UTI (urinary tract infection) (7) CVA (cerebral vascular accident) (8) Pedal edema (9) Chronic deep vein thrombosis (DVT) Lakhwinder Dai Apr 18, 2019 12:28
[2019-04-18 16:00] VITALS: BP 151/75
[2019-04-18] MEDS ORDERED: Lisinopril 20mg tab ORAL SCH (18:00)
[2019-04-18 20:00] VITALS: BP 127/61
[2019-04-19] VITALS: BP 145/75
[2019-04-19 04:00] VITALS: BP 136/77
[2019-04-19 06:53] LABS: ALANINE AMINOTRANSFERASE 7 U/L (12-78); ALBUMIN 1.6 G/DL (3.4-5.0); ALBUMIN/GLOBULIN RATIO 0.3 (1.0-2.7); ALKALINE PHOSPHATASE 78 U/L (46-116); ANION GAP 4 mmol/L (5-15); ASPARTATE AMINO TRANSFERASE 18 U/L (15-37); BILIRUBIN,TOTAL 0.3 MG/DL (0.2-1.0); BLOOD UREA NITROGEN 13 mg/dL (7-18); CALCIUM 8.7 MG/DL (8.5-10.1); CARBON DIOXIDE 34 MMOL/L (21-32); CHLORIDE 107 MMOL/L (98-107); CREATININE 0.7 MG/DL (0.55-1.30); POTASSIUM 3.6 MMOL/L (3.5-5.1); SODIUM 145 MMOL/L (136-145)
[2019-04-19 08:00] VITALS: BP 124/69
[2019-04-19] MEDS: Docusate 100mg cap ORAL SCH ×2 (09:00→17:42)
[2019-04-19] MEDS: Lisinopril 20mg tab ORAL SCH ×2 (09:08→17:08)
[2019-04-19] MEDS: cefTRIAXone 1 GM in D5W 55 ML IVPB SCH (09:09)
[2019-04-19] MEDS: Enoxaparin 60mg Inj SUBQ SCH ×2 (09:11→20:49)
--- NOTE | 2019-04-19 10:49 | Diagnostic Imaging Report ---
Indication: Shortness of breath Technique: One view of the chest Comparison: 04/17/2019 Findings: The heart is enlarged. There is bilateral interstitial and airspace edema and bilateral pleural fluid again demonstrated. Findings are unchanged Impression: Unchanged, over one day, findings as above.
--- NOTE | 2019-04-19 11:30 | Progress Note ---
DATE: 04/18/2019 CARDIOLOGY PROGRESS NOTE SUBJECTIVE: The patient remains confused but cooperative. IV therapies noted with furosemide. Intake and output do not appear to be accurate. PHYSICAL EXAMINATION: VITAL SIGNS: Blood pressure labile at times 139/76 up to 161/78, heart rate 88 to 103, respiratory rate 18 to 20. The patient is afebrile. LUNGS: Few rales bilaterally. HEART: Regular rhythm rate. Normal S1, S2 with a 1/6 systolic murmur at apex. ABDOMEN: Soft. EXTREMITIES: Trace dependent edema. Diminished distal pulses. Wound evaluation as discussed by Dr. Dai. LABORATORY AND DIAGNOSTIC DATA: Venous duplex was positive for common femoral vein DVT. Labs reviewed in the computer database. IMPRESSION: 1. Metabolic encephalopathy. 2. Acute diastolic congestive heart failure . 3. Hypertensive heart disease . 4. Acute lower extremity DVT. 5. Peripheral artery disease. 6. Stage II decubitus. 7. Protein-calorie malnutrition. 8. Dehydration. 9. . 10. Hypokalemia. 11. Hypomagnesemia. PLAN: 1. Continue diuresis. 2. Encourage free water. 3. Full anticoagulation with high-dose Lovenox for now. 4. Cautious diuresis. 5. Advance antihypertensive regimen. 6. Follow up echocardiogram. 7. oral potassium, IV magnesium. James Archibald M.D. DR: Celia JOB#: [id number] CC:
--- NOTE | 2019-04-19 11:45 | History and Physical Report ---
DATE OF ADMISSION: 04/17/2019 CHIEF COMPLAINT: Altered mental status and CHF exacerbation. HISTORY OF PRESENT ILLNESS: The patient is an elderly female. She currently resides at the alf facility. She has a history of dementia, stroke, paroxysmal atrial fibrillation, congestive heart failure. She was transferred from a alf facility with complaints of confusion and generalized weakness. On evaluation in the emergency room, the patient is oriented only to herself. Her vital signs were otherwise stable. Her UA was clear. She was noted to be anemic. On chest x-ray, she had evidence of congestive heart failure. She has been started on diuretic therapy and is now admitted for further evaluation and care. PAST MEDICAL HISTORY: As above. PAST SURGICAL HISTORY: None. CURRENT MEDICATIONS: Reconciled and reviewed. ALLERGIES: Include penicillin and seafood. FAMILY HISTORY: Noncontributory. SOCIAL HISTORY: There is no known history of tobacco, ethanol, or drugs. REVIEW OF SYSTEMS: From the patient is unobtainable as she is confused. PHYSICAL EXAMINATION: VITAL SIGNS: Temperature 97.5, pulse 103, respirations 19, blood pressure 137/90. GENERAL: The patient is a chronically ill-appearing female. She has facial droop. NECK: Supple. HEART: Regular rate and rhythm. LUNGS: Clear anteriorly. ABDOMEN: Soft, nontender, nondistended. EXTREMITIES: Without clubbing, cyanosis, or edema. LABORATORY DATA: White count 7, hemoglobin 9. Coags normal. Sodium 146. Troponin 0.012. Natriuretic peptide level is 12,000. ASSESSMENT: This is an elderly female admitted with complaints of altered mental status suspect multifactorial, CHF, AFib, hypertension. PLAN: 1. IV diuretic therapy. 2. Monitor neuro checks. 3. Check a swallow evaluation. 4. DVT and stress ulcer prophylaxis. 5. Cardiology consultation has been obtained. Eloy Hughes M.D. DR: GRICELDA JOB#: [id number] CC:
[2019-04-19 12:00] VITALS: BP 120/77
--- NOTE | 2019-04-19 12:15 | Consultation ---
DATE OF CONSULTATION: CARDIOLOGY CONSULTATION REQUESTING PHYSICIAN: Eloy Hughes MD REASON FOR CONSULTATION: Congestive heart failure. HISTORY OF PRESENT ILLNESS: This 88-year-old female has been convalescing at a residential facility. Yesterday, she was noted to be increasingly confused by the nursing staff and disoriented. They described that this is a significant change from her baseline. She also was reportedly somewhat congested and short of breath, but did not have any other constitutional symptoms. She did complain of back pain and discomfort on her butts. PAST MEDICAL HISTORY: 1. Peripheral artery disease. 2. Chronic lower extremity DVT. 3. Peripheral artery disease. 4. Hypertension with hypertensive heart disease. 5. Bronson catheter deficiency. 6. Iron deficiency anemia. 7. History of Hemoccult-positive stool. 8. History of protein calorie malnutrition. 9. History of CVA with left hemiparesis. 10. History of left foot ulcer and cellulitis status post treatment. 11. History of enterococcal urinary tract infection. 12. History of diastolic congestive heart failure, cerebrovascular disease with dementia. ALLERGIES: Penicillin and seafood. SOCIAL HISTORY: Negative for smoking, alcohol, or substance abuse. FAMILY HISTORY: Noncontributory. MEDICATIONS: Prior to admission, reviewed and reconciled. REVIEW OF SYSTEMS: A 10-point review of systems performed. Unable to obtain reliable information per the patient. Twenty minutes spent reviewing prior hospitalization records here and current chart from residential [facility] where she resides. PHYSICAL EXAMINATION: VITAL SIGNS: Blood pressure 142/67, pulse 82, respirations 18. Afebrile. HEENT: Temporal wasting. Arcus senilis. Oropharynx clear. NECK: Supple. Jugular venous pressure elevated. LUNGS: With diminished breath sounds and few rales. CARDIAC: Irregularly irregular rhythm. Normal S1, S2. A 1/6 systolic murmur at apex. ABDOMEN: Soft, nontender. EXTREMITIES: Diminished distal pulses. No edema. Healed left lower extremity skin wound, stage II sacral decubitus. NEUROLOGIC: With left hemiparesis and mild cognitive impairment. The patient is more confused than her baseline. LABS: Urinalysis, no active sediment. Sodium 146, potassium 4, bicarb 34, chloride 108, BUN 15, creatinine 0.7. Troponin 0.012. Natriuretic peptide 12,200. Albumin 1.8. White count 7.3, hemoglobin 9.2. MCV 99. IMPRESSION: Metabolic encephalopathy, [id number] diastolic congestive heart failure, paroxysmal atrial fibrillation with controlled rate, advanced age, peripheral artery disease, sacral ulcer, history of folate deficiency, iron deficiency and anemia, cerebrovascular disease with dementia, mild dehydration and hypernatremia, severe protein-calorie malnutrition. PLAN: 1. Cardiac monitoring, free water replacement. 2. No plans for anticoagulation in view of advanced age and bleeding risk. Continued use of antiplatelet therapy. 3. Cautious diuresis. Monitor electrolytes and metabolic parameters. Monitor cardiorenal function and volume status. 4. Continue beta blockade and titrate for rate control. Recheck vitamin parameters and replace accordingly. 5. Skin care protocol and wound evaluation. 6. Protein supplement. 7. Echocardiogram to reassess left ventricular function. James Archibald M.D. DR: JONI JOB#: [id number] CC:
--- NOTE | 2019-04-19 13:58 | Surgery Progress Note ---
Surgery Progress Note Subjective Additional Comments doing well no complaints eating very well Objective Last 24 Hour Vital Signs Date Time Temp Pulse Resp B/P (MAP) Pulse Ox O2 Delivery O2 Flow Rate FiO2 04/19/19 12:00 98.1 69 19 120/77 (91) 98 04/19/19 09:09 81 124/69 04/19/19 09:08 124/69 04/19/19 09:00 Room Air 04/19/19 08:00 98.0 81 17 124/69 (87) 97 04/19/19 04:00 97.7 71 18 136/77 (96) 93 04/19/19 00:00 97.1 79 18 145/75 (98) 93 04/18/19 21:53 77 127/61 04/18/19 21:00 Room Air 04/18/19 20:00 97.6 77 16 127/61 (83) 93 04/18/19 17:13 151/75 04/18/19 16:00 97.7 80 18 151/75 (100) 97 I&O Intake and Output 04/18/19 04/19/19 19:00 07:00 Intake Total 530 ml Output Total 2100 ml Balance -1570 ml Intake Oral 530 ml Output Urine Total 2100 ml # Bowel Movements 2 Dressing: other Wound: other Drains: other Cardiovascular: RSR Respiratory: decreased breath sounds Abdomen: soft, present bowel sounds Extremities: no cyanosis Laboratory Tests Test 04/19/19 05:50 Sodium Level 145 MMOL/L (136-145) Potassium Level 3.6 MMOL/L (3.5-5.1) Chloride Level 107 MMOL/L (98-107) Carbon Dioxide Level 34 MMOL/L (21-32) H Anion Gap 4 mmol/L (5-15) L Blood Urea Nitrogen 13 mg/dL (7-18) Creatinine 0.7 MG/DL (0.55-1.30) Estimat Glomerular Filtration Rate > 60 mL/min (>60) Glucose Level 89 MG/DL (74-106) Calcium Level 8.7 MG/DL (8.5-10.1) Total Bilirubin 0.3 MG/DL (0.2-1.0) Aspartate Amino Transf (AST/SGOT) 18 U/L (15-37) Alanine Aminotransferase (ALT/SGPT) 7 U/L (12-78) L Alkaline Phosphatase 78 U/L (46-116) Pro-B-Type Natriuretic Peptide 77762 pg/mL (0-125) H Total Protein 6.8 G/DL (6.4-8.2) Albumin 1.6 G/DL (3.4-5.0) L Globulin 5.2 g/dL Albumin/Globulin Ratio 0.3 (1.0-2.7) L Plan Problems: (1) Decubitus skin ulcer Assessment & Plan: patient presented with multiple skin issues noted to have edema in bilateral lower extremities. noted to have historic sacral and buttock wounds healed noted to have left leg skin abrasions. likely edema and less likely cellulitis of extremity no n/v/f/c no active drainage mild discomfort on palpation no acute surgical intervention planned diet as tolerated care orders place thank you will follow with recs (2) Atrial fibrillation, chronic (3) Anemia (4) Cellulitis Assessment & Plan: as above (5) CHF (congestive heart failure) (6) UTI (urinary tract infection) (7) CVA (cerebral vascular accident) (8) Pedal edema (9) Chronic deep vein thrombosis (DVT) Additional Comments improving Lakhwinder Dai Apr 19, 2019 13:58
[2019-04-19 16:00] VITALS: BP_SYST 12
[2019-04-19 20:00] VITALS: BP 142/67
[2019-04-20] VITALS: BP 115/51
--- NOTE | 2019-04-20 03:00 | Progress Note ---
DATE: 04/19/2019 CARDIOLOGY AND INTERNAL MEDICINE PROGRESS NOTE SUBJECTIVE: No new complaints. The patient continues with wound care. OBJECTIVE: VITAL SIGNS: Stable. Blood pressure 142/67, pulse 81, respiratory rate 18, T max 99. LUNGS: Diminished breath sounds. Few rales. CARDIAC: Irregularly irregular rhythm. Normal S1, S2. ABDOMEN: Soft. EXTREMITIES: No edema. Diminished peripheral pulses. LABORATORY DATA: Potassium 3.6, BUN 13, and creatinine 0.7. Pro natriuretic peptide 10,658. IMPRESSION: 1. Paroxysmal atrial fibrillation. 2. Hypertensive heart disease. 3. Peripheral artery disease. 4. Acute DVT. 5. Moderate to severe protein-calorie malnutrition. 6. Acute diastolic congestive heart failure. 7. Metabolic abnormalities. PLAN: 1. Diuresis. 2. Replace electrolytes. 3. Transition to Eliquis for long-term anticoagulation. 4. Titrate antihypertensives and anti-failure regimen. James Archibald M.D. DR: ELVIS JOB#: [id number] CC:
[2019-04-20 04:00] VITALS: BP 136/65
[2019-04-20 07:23] LABS: EOSINOPHILS % (AUTO) 4.2 % (0.0-3.0); HEMATOCRIT 27.2 % (37.0-47.0); HEMOGLOBIN 8.9 G/DL (12.0-16.0); LYMPHOCYTES % (AUTO) 34.1 % (20.0-45.0); MEAN CORPUSCULAR VOLUME 99 FL (80-99); MONOCYTES % (AUTO) 9.4 % (1.0-10.0); NEUTROPHILS % (AUTO) 50.3 % (45.0-75.0); PLATELET COUNT 315 K/UL (150-450); RED BLOOD COUNT 2.76 M/UL (4.20-5.40); RED CELL DISTRIBUTION WIDTH 16.2 % (11.6-14.8); WHITE BLOOD COUNT 5.7 K/UL (4.8-10.8)
[2019-04-20 07:53] LABS: ALANINE AMINOTRANSFERASE 6 U/L (12-78); ALBUMIN 1.6 G/DL (3.4-5.0); ALBUMIN/GLOBULIN RATIO 0.3 (1.0-2.7); ALKALINE PHOSPHATASE 67 U/L (46-116); ANION GAP 6 mmol/L (5-15); ASPARTATE AMINO TRANSFERASE 17 U/L (15-37); BILIRUBIN,TOTAL 0.4 MG/DL (0.2-1.0); BLOOD UREA NITROGEN 11 mg/dL (7-18); CALCIUM 8.5 MG/DL (8.5-10.1); CARBON DIOXIDE 34 MMOL/L (21-32); CHLORIDE 106 MMOL/L (98-107); CREATININE 0.7 MG/DL (0.55-1.30); POTASSIUM 3.5 MMOL/L (3.5-5.1); SODIUM 146 MMOL/L (136-145)
[2019-04-20 08:00] VITALS: BP 124/63
[2019-04-20] MEDS: cefTRIAXone 1 GM in D5W 55 ML IVPB SCH (08:55)
[2019-04-20] MEDS: Docusate 100mg cap ORAL SCH ×2 (08:55→17:03)
[2019-04-20] MEDS: Lisinopril 20mg tab ORAL SCH ×2 (08:56→16:52)
[2019-04-20] MEDS: Eliquis 2.5mg tablet ORAL SCH ×2 (09:46→17:03)
[2019-04-20 12:00] VITALS: BP 105/49
--- NOTE | 2019-04-20 12:32 | Surgery Progress Note ---
Surgery Progress Note Subjective Additional Comments no acute events comfortable stable Objective Last 24 Hour Vital Signs Date Time Temp Pulse Resp B/P (MAP) Pulse Ox O2 Delivery O2 Flow Rate FiO2 04/20/19 08:56 78 124/63 04/20/19 08:56 124/63 04/20/19 08:38 Room Air 04/20/19 08:00 97.9 78 20 124/63 (83) 94 04/20/19 04:00 98.6 79 18 136/65 (88) 98 04/20/19 00:00 98.1 74 20 115/51 (72) 95 04/19/19 21:00 Room Air 04/19/19 20:49 81 142/67 04/19/19 20:00 97.0 81 18 142/67 (92) 93 04/19/19 17:08 127/77 04/19/19 16:00 99.0 115 20 12/ 97 Dressing: other Wound: other Drains: other Cardiovascular: RSR Respiratory: decreased breath sounds Abdomen: soft, present bowel sounds Extremities: no cyanosis, other Laboratory Tests Test 04/20/19 05:30 White Blood Count 5.7 K/UL (4.8-10.8) Red Blood Count 2.76 M/UL (4.20-5.40) L Hemoglobin 8.9 G/DL (12.0-16.0) L Hematocrit 27.2 % (37.0-47.0) L Mean Corpuscular Volume 99 FL (80-99) Mean Corpuscular Hemoglobin 32.4 PG (27.0-31.0) H Mean Corpuscular Hemoglobin Concent 32.9 G/DL (32.0-36.0) Red Cell Distribution Width 16.2 % (11.6-14.8) H Platelet Count 315 K/UL (150-450) Mean Platelet Volume 5.1 FL (6.5-10.1) L Neutrophils (%) (Auto) 50.3 % (45.0-75.0) Lymphocytes (%) (Auto) 34.1 % (20.0-45.0) Monocytes (%) (Auto) 9.4 % (1.0-10.0) Eosinophils (%) (Auto) 4.2 % (0.0-3.0) H Basophils (%) (Auto) 2.0 % (0.0-2.0) Sodium Level 146 MMOL/L (136-145) H Potassium Level 3.5 MMOL/L (3.5-5.1) Chloride Level 106 MMOL/L (98-107) Carbon Dioxide Level 34 MMOL/L (21-32) H Anion Gap 6 mmol/L (5-15) Blood Urea Nitrogen 11 mg/dL (7-18) Creatinine 0.7 MG/DL (0.55-1.30) Estimat Glomerular Filtration Rate > 60 mL/min (>60) Glucose Level 79 MG/DL (74-106) Calcium Level 8.5 MG/DL (8.5-10.1) Magnesium Level 1.7 MG/DL (1.8-2.4) L Total Bilirubin 0.4 MG/DL (0.2-1.0) Aspartate Amino Transf (AST/SGOT) 17 U/L (15-37) Alanine Aminotransferase (ALT/SGPT) 6 U/L (12-78) L Alkaline Phosphatase 67 U/L (46-116) Total Protein 6.5 G/DL (6.4-8.2) Albumin 1.6 G/DL (3.4-5.0) L Globulin 4.9 g/dL Albumin/Globulin Ratio 0.3 (1.0-2.7) L Plan Problems: (1) Decubitus skin ulcer Assessment & Plan: patient presented with multiple skin issues noted to have edema in bilateral lower extremities. noted to have historic sacral and buttock wounds healed noted to have left leg skin abrasions. likely edema and less likely cellulitis of extremity no n/v/f/c no active drainage mild discomfort on palpation no acute surgical intervention planned diet as tolerated care orders place thank you will follow with recs DAILY ESTIMATED NEEDS: Needs based on cardiac, h/o wounds, 65kg 25-30 kcals/kg 0878-6882 total kcals 1-1.5 g protein/kg 65-98 g total protein 20-25 mL/kg 9508-9979 total fluid mLs NUTRITION DIAGNOSIS: Swallowing difficulty r/t h/o CVA as evidenced by L side weakness, currently on [facility] soft finely chopped texture diet w/ variable to poor intake. CURRENT DIET: cardiac ms finely chopped PO DIET RECOMMENDATIONS: Liberalized LOW NA diet / texture per CUSHION COVER INSPECTOR ADDITIONAL RECOMMENDATIONS: 1) RE-calibrate bed scale w/ added P200 mattress 2) Add YUDI BID to maintain skin integrity 3) Monitor lytes daily on lasix 4) CUSHION COVER INSPECTOR eval for appropriate texture 5) Ensure qdaily (2) Atrial fibrillation, chronic (3) Anemia (4) Cellulitis Assessment & Plan: as above (5) CHF (congestive heart failure) (6) UTI (urinary tract infection) (7) CVA (cerebral vascular accident) (8) Pedal edema (9) Chronic deep vein thrombosis (DVT) Lakhwinder Dai Apr 20, 2019 12:32
[2019-04-20 16:00] VITALS: BP 118/63
[2019-04-20 20:00] VITALS: BP 118/82
[2019-04-21] VITALS: BP 123/62
--- NOTE | 2019-04-21 03:15 | Progress Note ---
DATE: 04/20/2019 CARDIOLOGY PROGRESS NOTE SUBJECTIVE: No shortness of breath. No chest pain. Ongoing wound care. Intake fair by mouth. OBJECTIVE: VITAL SIGNS: Oxygen saturation 94 to 98% on room air. LUNGS: Clear with few rales. CARDIAC: Regular rhythm and rate. Normal S1, S2 with a fourth heart sound. ABDOMEN: Soft. EXTREMITIES: 1+ edema, decreasing. LABORATORY DATA: Magnesium 1.7, BUN 11, creatinine 0.7, potassium 3.5, sodium 146, bicarb 34. White count 5.7, hemoglobin 8.9. IMPRESSION: 1. Acute on chronic diastolic congestive heart failure. 2. Dehydration. 3. Hyponatremia. 4. Anemia. 5. Peripheral artery disease. 6. Hypomagnesemia. 7. Paroxysmal atrial fibrillation. 8. Decubitus with skin abscess. PLAN: 1. Diuresis. 2. Free water replacement. 3. IV magnesium. 4. Wound care. 5. Consider discontinuation of antimicrobials over the next 24 hours. James Archibald M.D. DR: Cordell JOB#: [id number] CC:
[2019-04-21 04:00] VITALS: BP 111/59
[2019-04-21 07:19] LABS: BASOPHILS % (AUTO) 1.5 % (0.0-2.0); EOSINOPHILS % (AUTO) 4.7 % (0.0-3.0); HEMATOCRIT 26.9 % (37.0-47.0); HEMOGLOBIN 8.6 G/DL (12.0-16.0); MEAN CORPUSCULAR VOLUME 99 FL (80-99); MONOCYTES % (AUTO) 8.2 % (1.0-10.0); NEUTROPHILS % (AUTO) 49.6 % (45.0-75.0); PLATELET COUNT 305 K/UL (150-450); RED BLOOD COUNT 2.73 M/UL (4.20-5.40); RED CELL DISTRIBUTION WIDTH 16.2 % (11.6-14.8); WHITE BLOOD COUNT 7.1 K/UL (4.8-10.8)
[2019-04-21 07:51] LABS: ANION GAP 9 mmol/L (5-15); BLOOD UREA NITROGEN 10 mg/dL (7-18); CALCIUM 8.6 MG/DL (8.5-10.1); CARBON DIOXIDE 30 MMOL/L (21-32); CHLORIDE 101 MMOL/L (98-107); CREATININE 0.7 MG/DL (0.55-1.30); POTASSIUM 3.3 MMOL/L (3.5-5.1); SODIUM 140 MMOL/L (136-145)
[2019-04-21 08:00] VITALS: BP 138/63
[2019-04-21] MEDS: Docusate 100mg cap ORAL SCH (09:27)
[2019-04-21 09:28] VITALS: BP 138/63
[2019-04-21] MEDS: Lisinopril 20mg tab ORAL SCH (09:28)
[2019-04-21] MEDS: Eliquis 2.5mg tablet ORAL SCH (09:28)
[2019-04-21] MEDS: cefTRIAXone 1 GM in D5W 55 ML IVPB SCH (09:29)
[2019-04-21] MEDS ORDERED: Doxycycline Monohydrate 100mg ORAL SCH (10:30)
[2019-04-21] MEDS ORDERED: Spironolactone 25mg tab ORAL SCH (10:30)
[2019-04-21] MEDS ORDERED: ELIQUIS2.5 MG PO (11:21)
[2019-04-21] MEDS ORDERED: ASPIRIN-LOW81 MG ORAL (11:23)
[2019-04-21] MEDS ORDERED: DOCUSATE SODIU100 MG ORAL (11:24)
[2019-04-21] MEDS ORDERED: DOXYCYCLINE MO100 MG ORAL (11:27)
[2019-04-21] MEDS ORDERED: FOLIC ACID1 MG ORAL (11:27)
[2019-04-21] MEDS ORDERED: FUROSEMIDE40 MG ORAL (11:28)
[2019-04-21] MEDS ORDERED: METOPROLOL TART25 MG ORAL (11:29)
[2019-04-21] MEDS ORDERED: LISINOPRIL20 MG ORAL (11:29)
[2019-04-21] MEDS ORDERED: MULTIVITAMINS1 EAC2 ORAL (11:30)
[2019-04-21] MEDS ORDERED: SPIRONOLACTONE25 MG ORAL (11:31)
--- NOTE | 2019-04-22 07:15 | Progress Note ---
DATE: 04/21/2019 CARDIOLOGY PROGRESS NOTE SUBJECTIVE: No shortness of breath. OBJECTIVE: VITAL SIGNS: Stable. NECK: Jugular venous pressure normal. LUNGS: Clear. CARDIAC: Regular rhythm and rate. Normal S1 and S2 with a fourth heart sound. EXTREMITIES: Trace edema. LABORATORY DATA: Reviewed. IMPRESSION: 1. DVT. 2. Acute diastolic congestive heart failure. 3. Peripheral artery disease. 4. Cellulitis. 5. Dehydration, corrected. PLAN: 1. Full anticoagulation. 2. Complete oral antimicrobials. 3. Maintenance dose of diuresis . 4. Maintain current antihypertensive regimen. 5. Stable for discharge to [facility] facility. James Archibald M.D. DR: JOHN JOB#: [id number] CC:
[2019-04-22] MEDS ORDERED: Furosemide 40mg tab ORAL SCH (09:00)
[2019-04-22] MEDS ORDERED: Aspirin Baby 81mg NG SCH (09:00)
[2019-04-22] MEDS ORDERED: Spironolactone 25mg tab ORAL SCH (09:00)
--- NOTE | 2019-04-25 12:51 | Discharge Summary ---
Discharge Summary Discharge Summary _ DATE OF ADMISSION: 04/17/2019 DATE OF DISCHARGE: 04/21/2019 DISCHARGED BY: Dr. Hughes REASON FOR ADMISSION: 88 years old female, resident of [facility] facility, with past medical history of stroke, paroxysmal atrial fibrillation, congestive heart failure, dementia, was transferred due to complaints of confusion and generalized weakness. Upon evaluation vital signs were stable. Urinalysis was unremarkable. Laboratory work-up revealed no leukocytosis , anemia with hemoglobin 9.2 , hematocrit 29.3. Sodium 146, stable renal parameters. Troponin negative. pro BNP 98385. Chest x-ray demonstrated pulmonary vascular congestion , likely pulmonary edema. Bilateral pleural effusion. EKG showed atrial fibrillation with controlled ventricular response. Patient received IV Lasix and diuresed well. Patient subsequently admitted to telemetry floor for further management. CONSULTANTS: power manager surgery Dr. Dai [facility]RSE: Patient admitted to telemetry floor. Echocardiogram demonstrated preserved ejection fraction of 55% , no evidence of pericardial effusion. No evidence of wall motion abnormality. Right ventricular systolic pressure of 52 consistent with moderate pulmonary hypertension. Mitral inflow indicated restrictive pattern, implying severely elevated left atrial pressure grade 3. Moderate mitral and tricuspid regurgitation. Diuresis provided provided as per power manager recommendation with close monitoring of volumes and cardiorenal parameters. Pro BNP trended down to 8414 upon discharge. Antihypertensive and anti-failure regimen was titrated as per power manager . Renal parameters and electrolytes were closely monitored, electrolytes corrected as needed. Venous duplex bilateral lower extremity revealed acute DVT right common femoral vein. Patient started on Lovenox and subsequently converted to oral anticoagulation upon discharge. Patient was on antibiotics for cellulitis. Patient remained afebrile. Protein supplements implemented in plan of care as per registered veterinary technician recommendation. GI prophylaxis provided. Bowel regimen instituted. Supportive care provided. Patient had prior sacral and buttock wounds , which healed. Patient noted to left leg skin abrasion. Wound care provided as per surgeon recommendation. Continue wound care at the facility. Bedside swallow evaluation was completed. Diet texture provided as per speech therapist recommendation with aspiration precaution and total assistance with meals. Hemoglobin and hematocrit were closely monitored with goal to keep hemoglobin above 7. Prior to discharge hemoglobin 8.6, hematocrit 26.9. Anemia work-up was consistent with anemia of chronic disease. TSH within normal limits. Patient clinically stabilized and was ready for transfer back to [facility] for continuation of care. . FINAL DIAGNOSES: Acute on chronic diastolic congestive heart failure Acute DVT right common femoral vein Hypertensive heart disease Moderate to severe protein calorie malnutrition Cellulitis Dehydration-corrected Peripheral artery disease Paroxysmal atrial fibrillation Electrolyte abnormalities Toxic metabolic encephalopathy Anemia DISCHARGE MEDICATIONS: See Medication Reconciliation list. DISCHARGE INSTRUCTIONS: Patient was discharged to the [facility] facility. Follow up with medical doctor at the facility. I have been assigned to dictate discharge summary for this account. I was not involved in the patient's management. Bree Montes NP Apr 25, 2019 12:51
== END 2019-04-21 12:30 | DRG 291 ==
LOC: EDBD 00:20 → EMR 00:40 → 2E 03:06 → EDBEDREQ 07:06 → 2E 08:04 → 4E 04-18 23:26
DX: I11.0 Hypertensive heart disease with heart failure (principal); G92 Toxic encephalopathy; E43 Unspecified severe protein-calorie malnutrition; I69.354 Hemiplegia and hemiparesis following cerebral infarction affecting left non-dominant side; L03.90 Cellulitis, unspecified; I82.411 Acute embolism and thrombosis of right femoral vein; I50.33 Acute on chronic diastolic (congestive) heart failure; I48.0 Paroxysmal atrial fibrillation; Z88.0 Allergy status to penicillin; Z86.73 Personal history of transient ischemic attack (TIA), and cerebral infarction without residual deficits; I73.9 Peripheral vascular disease, unspecified; F01.50 Vascular dementia, unspecified severity, without behavioral disturbance, psychotic disturbance, mood disturbance, and anxiety; L89.152 Pressure ulcer of sacral region, stage 2; G31.84 Mild cognitive impairment of uncertain or unknown etiology; D50.9 Iron deficiency anemia, unspecified; E86.0 Dehydration
CPT/HCPCS: 36415; 71045; 80048; 80053; 81003; 82306; 82607; 82746; 83540; 83550; 83735; 83880; 84443; 84484; 85025; 85610; 85651; 85730; 86140; 93005; 93306; 93970; 99285; J8499